=== PATIENT | female | born 1945 | race Caucasian/White ===

== ENCOUNTER 2016-10-21 14:52 | Emergency (ER) | payer MEDICARE ==
[2016-10-21] MEDS ORDERED: NS 0.9% 1000 ML* 1,000 ML IV ONE ×2 (15:38→16:30)
[2016-10-21] MEDS ORDERED: Diltiazem IV* 5 MG/ML 5 ML VIAL (for loading dose/IV Push) (25 MG) IV PUSH ONE (15:38)
[2016-10-21] MEDS ORDERED: Aspirin Low Dose CHEW TAB* 81 MG PO ONE (15:38)
[2016-10-21] MEDS ORDERED: Diltiazem DRIP* 100 MG/100 ML ADDV.BAG IVPB ONE (15:38)
[2016-10-21 16:03] LABS: Hematocrit 39 % (35-47); Mean Corpuscular HGB Conc 33 g/dl (31-36); Mean Corpuscular Hemoglobin 29 pg (27-31); Mean Corpuscular Volume 89 fL (80-97); Mean Platelet Volume 8 um3 (7.4-10.4); Red Blood Count 4.45 10^6/ul (4.0-5.4); Red Cell Distribution Width 15 % (10.5-15); White Blood Count 6.9 10^3/ul (3.5-10.8)
--- NOTE | 2016-10-21 16:13 | RAD ---
INDICATION: Pneumonia, CHF. COMPARISON: Comparison is made with a prior chest x-ray study from May 22, 2015. TECHNIQUE: A portable view of the chest was obtained. FINDINGS: The heart appears mildly enlarged and unchanged from the prior exam. There is a small infiltrate at the left lung base. The right lung appears clear. IMPRESSION: SMALL LEFT BASILAR INFILTRATE.
[2016-10-21 16:18] LABS: Urine Bilirubin Negative (Negative); Urine Glucose Negative (Negative); Urine Nitrite Negative (Negative)
[2016-10-21 16:19] LABS: Albumin 3.9 g/dL (3.2-5.2); BUN/Creatinine Ratio 21.4 (8-20); Calcium 9.6 mg/dL (8.6-10.3); EGFR African American 67.9 (>60); EGFR Non-African American 52.8 (>60); Globulin 3.7 g/dL (2-4); Magnesium 1.7 mg/dL (1.9-2.7); Potassium 3.7 mmol/L (3.5-5.0); Total Bilirubin 0.5 mg/dL (0.2-1.0); Total Protein 7.6 g/dL (6.4-8.9)
[2016-10-21 16:21] LABS: Troponin I 0.02 ng/mL (<0.04)
[2016-10-21 17:07] LABS: TSH (Thyroid Stimulating Horm) 1.15 mcIU/mL (0.34-5.60)
[2016-10-21] MEDS ORDERED: Potassium Chlor TAB* 20 MEQ TAB.ER PO ONE (18:37)
[2016-10-21] MEDS ORDERED: Rivaroxaban TAB(*) 10 MG PO ONE (18:39)
[2016-10-21] MEDS ORDERED: Rivaroxaban TAB(*) 20 MG TAB PO ONE ×2 (19:00→19:01)
[2016-10-21 19:05] VITALS: BP 106/67
--- NOTE | 2016-10-21 19:47 | ED ---
Paco Medina Billy, scribed for James Gonzalez MD on 10/21/16 at 1531 . Palpitations / Dysrhythmia - HPI Summary HPI Summary: Patient is a 71 year-old female coming to [facility] presenting with palpitations starting today at 1300. She states that her heart feels as if it is beating incredibly rapidly. She reports dizziness without any syncope. Denies any SOB. Patient has bilateral edema. She states that her current symptoms are very similar to a previous episode of a-fib. Denies any significant caffeine intake. - History of Current Complaint Chief Complaint: EDDysrhythmPalp Time Seen by Provider: 10/21/16 15:22 Hx Obtained From: Patient Onset/Duration: Gradual Onset, Lasting Hours, Still Present Timing: Constant Severity Initially: Moderate Severity Currently: Moderate Character: Fast Aggravating: Nothing Alleviating: Nothing Associated Signs & Symptoms: Dizzy - Allergy/Home Medications Allergies/Adverse Reactions: Allergies Allergy/AdvReac Type Severity Reaction Status Date / Time Iodinated Contrast Media Allergy Mild Rash Verified 03/28/15 13:47 Amoxicillin [From Augmentin] Allergy Unknown Unknown Verified 03/28/15 13:47 Reaction Details Clavulanic Acid Allergy Unknown Unknown Verified 03/28/15 13:47 [From Augmentin] Reaction Details peppers Allergy Intermediate lips swell Uncoded 03/28/15 13:47 environmental Allergy Mild Sneezing Uncoded 03/28/15 13:47 tony seltzer AdvReac Mild nausea/vomi Uncoded 03/28/15 13:47 ting Home Medications: Home Medications Diclofenac 1% GEL (NF) [Voltaren 1% GEL (NF)] 1 applic TOPICAL BID PRN 10/21/16 [History Confirmed 10/21/16] Nystatin CREAM* [Nystatin Cream*] 1 applic TOPICAL BID PRN 10/21/16 [History Confirmed 10/21/16] PMH/Surg Hx/FS Hx/Imm Hx Endocrine/Hematology History: Reports: Hx Anticoagulant Therapy Cardiovascular History: Reports: Hx Atrial Fibrillation, Hx Deep Vein Thrombosis Denies: Hx Congestive Heart Failure, Hx Myocardial Infarction Respiratory History: Reports: Hx Pulmonary Embolism - 02/2014, Hx Seasonal Allergies - unsure; chronically stuffy head, Hx Sleep Apnea - O2 2L NIGHT, Other Respiratory Problems/Disorders - PNX3 LAST 5YRS.AGO GI History: Reports: Hx Gastroesophageal Reflux Disease, Hx Hiatal Hernia History: Reports: Other Problems/Disorders - frequent UTIs Musculoskeletal History: Reports: Hx Arthritis - knees, Other Musculoskeletal History - Vargas's esophagus Sensory History: Reports: Hx Cataracts - cataracts removed 2011, Hx Contacts or Glasses Denies: Hx Hearing Aid Opthamlomology History: Reports: Hx Cataracts - cataracts removed 2011, Hx Contacts or Glasses Psychiatric History: Reports: Hx Anxiety, Hx Depression - hx of therapy - Cancer History Hx Chemotherapy: No Hx Radiation Therapy: No - Surgical History Surgery Procedure, Year, and Place: cholecystectomy 2011 [facility] [place]. tonsillectomy 1961. D+C 1966 Hx Anesthesia Reactions: No Infectious Disease History: No Infectious Disease History: Denies: Traveled Outside the [place] in Last 30 Days - Family History Known Family History: Positive: Renal Disease - mother, Other Family History: Breast CA - Social History Alcohol Use: None Hx Substance Use: No Substance Use Type: Reports: None Hx Tobacco Use: No Smoking Status (MU): Never Smoked Tobacco Review of Systems Positive: Palpitations Negative: Shortness Of Breath Neurological: Other - dizziness All Other Systems Reviewed And Are Negative: Yes Physical Exam - Summary Physical Exam Summary: The patient is well-nourished in no acute distress and in no acute pain. The skin is warm and dry and skin color reflects adequate perfusion. HEENT: The head is normocephalic and atraumatic. The pupils are equal and reactive. The conjunctivae are clear and without drainage. Nares are patent and without drainage. Mouth reveals dry mucous membranes and the throat is without erythema and exudate. The external ears are intact. The ear canals are patent and without drainage. The tympanic membranes are intact. Neck is supple with full range of motion and non-tender. There are no carotid bruits. There is no neck vein distension. Respiratory: Chest is non-tender. Lungs are clear to auscultation and breath sounds are symmetrical and equal. Cardiovascular: Heart is tachycardic and irregular. There is no murmur or rub auscultated. Abdomen: The abdomen is soft and non-tender. There are normal bowel sounds heard in all four quadrants and there is no organomegaly palpated. Musculoskeletal: There is no back pain noted. Extremities are non-tender with full range of motion. There is good capillary refill. There is bilateral pitting edema. Neurological: Patient is alert and oriented to person, place and time. The patient has symmetrical motor strength in all four extremities. Cranial nerves are grossly intact. Deep tendon reflexes are symmetrical and equal in all four extremities. Psychiatric: The patient has an appropriate affect and does not exhibit any anxiety or depression. Triage Information Reviewed: Yes Vital Signs On Initial Exam: Initial Vitals Temp Pulse Resp BP Pulse Ox 98.6 F 147 19 120/68 97 10/21/16 14:54 10/21/16 14:54 10/21/16 14:54 10/21/16 14:54 10/21/16 14:54 Vital Signs Reviewed: Yes Diagnostics - Vital Signs Vital Signs Temp Pulse Resp BP Pulse Ox 10/21/16 14:54 98.6 F 147 19 120/68 97 - Laboratory Lab Results: Lab Results 10/21/16 10/21/16 10/21/16 Range/Units 15:20 15:54 15:54 WBC 6.9 (3.5-10.8) 10^3/ul RBC 4.45 (4.0-5.4) 10^6/ul Hgb 13.0 (12.0-16.0) g/dl Hct 39 (35-47) % MCV 89 (80-97) fL MCH 29 (27-31) pg MCHC 33 (31-36) g/dl RDW 15 (10.5-15) % Plt Count 244 (150-450) 10^3/ul MPV 8 (7.4-10.4) um3 Neut % (Auto) 64.7 (38-83) % Lymph % (Auto) 20.6 L (25-47) % Vigo % (Auto) 9.7 H (1-9) % Eos % (Auto) 4.0 (0-6) % Baso % (Auto) 1.0 (0-2) % Absolute Neuts (auto) 4.5 (1.5-7.7) 10^3/ul Absolute Lymphs (auto) 1.4 (1.0-4.8) 10^3/ul Absolute Monos (auto) 0.7 (0-0.8) 10^3/ul Absolute Eos (auto) 0.3 (0-0.6) 10^3/ul Absolute Basos (auto) 0.1 (0-0.2) 10^3/ul Absolute Nucleated RBC 0.01 10^3/ul Nucleated RBC % 0.2 INR (Anticoag Therapy) (0.89-1.11) Sodium 139 (133-145) mmol/L Potassium 3.7 (3.5-5.0) mmol/L Chloride 105 (101-111) mmol/L Carbon Dioxide 28 (22-32) mmol/L Anion Gap 6 (2-11) mmol/L BUN 22 (6-24) mg/dL Creatinine 1.03 H (0.51-0.95) mg/dL Est GFR ( Amer) 67.9 (>60) Est GFR (Non-Af Amer) 52.8 (>60) BUN/Creatinine Ratio 21.4 H (8-20) Glucose 92 (70-100) mg/dL Lactic Acid (0.5-2.0) mmol/L Calcium 9.6 (8.6-10.3) mg/dL Magnesium 1.7 L (1.9-2.7) mg/dL Total Bilirubin 0.50 (0.2-1.0) mg/dL AST 20 (13-39) U/L ALT 13 (7-52) U/L Alkaline Phosphatase 64 (34-104) U/L Total Creatine Kinase 50 (10-223) U/L Troponin I 0.02 (<0.04) ng/mL B-Natriuretic Peptide ( - 100) pg/mL Total Protein 7.6 (6.4-8.9) g/dL Albumin 3.9 (3.2-5.2) g/dL Globulin 3.7 (2-4) g/dL Albumin/Globulin Ratio 1.1 (1-3) TSH 1.15 (0.34-5.60) mcIU/mL Urine Color Yellow Urine Appearance Turbid Urine pH 5.0 (5-9) Ur Specific Hubbard 1.031 H (1.010-1.030) Urine Protein Negative (Negative) Urine Ketones Negative (Negative) Urine Blood Negative (Negative) Urine Nitrate Negative (Negative) Urine Bilirubin Negative (Negative) Urine Urobilinogen Negative (Negative) Ur Leukocyte Esterase Negative (Negative) Urine Glucose Negative (Negative) 10/21/16 10/21/16 10/21/16 Range/Units 15:54 15:54 15:54 WBC (3.5-10.8) 10^3/ul RBC (4.0-5.4) 10^6/ul Hgb (12.0-16.0) g/dl Hct (35-47) % MCV (80-97) fL MCH (27-31) pg MCHC (31-36) g/dl RDW (10.5-15) % Plt Count (150-450) 10^3/ul MPV (7.4-10.4) um3 Neut % (Auto) (38-83) % Lymph % (Auto) (25-47) % Vigo % (Auto) (1-9) % Eos % (Auto) (0-6) % Baso % (Auto) (0-2) % Absolute Neuts (auto) (1.5-7.7) 10^3/ul Absolute Lymphs (auto) (1.0-4.8) 10^3/ul Absolute Monos (auto) (0-0.8) 10^3/ul Absolute Eos (auto) (0-0.6) 10^3/ul Absolute Basos (auto) (0-0.2) 10^3/ul Absolute Nucleated RBC 10^3/ul Nucleated RBC % INR (Anticoag Therapy) 1.10 (0.89-1.11) Sodium (133-145) mmol/L Potassium (3.5-5.0) mmol/L Chloride (101-111) mmol/L Carbon Dioxide (22-32) mmol/L Anion Gap (2-11) mmol/L BUN (6-24) mg/dL Creatinine (0.51-0.95) mg/dL Est GFR ( Amer) (>60) Est GFR (Non-Af Amer) (>60) BUN/Creatinine Ratio (8-20) Glucose (70-100) mg/dL Lactic Acid 1.6 (0.5-2.0) mmol/L Calcium (8.6-10.3) mg/dL Magnesium (1.9-2.7) mg/dL Total Bilirubin (0.2-1.0) mg/dL AST (13-39) U/L ALT (7-52) U/L Alkaline Phosphatase (34-104) U/L Total Creatine Kinase (10-223) U/L Troponin I (<0.04) ng/mL B-Natriuretic Peptide 161 H ( - 100) pg/mL Total Protein (6.4-8.9) g/dL Albumin (3.2-5.2) g/dL Globulin (2-4) g/dL Albumin/Globulin Ratio (1-3) TSH (0.34-5.60) mcIU/mL Urine Color Urine Appearance Urine pH (5-9) Ur Specific Hubbard (1.010-1.030) Urine Protein (Negative) Urine Ketones (Negative) Urine Blood (Negative) Urine Nitrate (Negative) Urine Bilirubin (Negative) Urine Urobilinogen (Negative) Ur Leukocyte Esterase (Negative) Urine Glucose (Negative) Result Diagrams: 10/21/16 15:54 10/21/16 15:54 Lab Statement: Any lab studies that have been ordered have been reviewed, and results considered in the medical decision making process. - Radiology CXR Radiology Interpretation Completed By: Radiologist - Small left basilar infiltrate. - EKG 1602 EKG Interpretation: afib 136 with RVR, poor R-wave progression, normal axis, no ST elevation 1814 EKG Interpretation: NSR 69 bpm, no ST elevation Re-Evaluation - Re-Evaluation First Eval Re-Evaluation Time: 16:49 Change: Unchanged Comment: Remains in afib. Second Eval Re-Evaluation Time: 18:11 Change: Improved Comment: Has converted to sinus rhythm. Course/Dx - Course Assessment/Plan: 71 y/o female coming to [facility] for evaluation of palpitations. CXR shows small left basilar infiltrate. First EKG at 1602 shows afib 136 with RVR, poor R-wave progression, normal axis, no ST elevation. In the ED course, patient was given diltiazem and ASA. Case discussed with Dr. Wesley, who accepted the patient for admission. However, upon re-evaluation, patient appeared to be in sinus rhythm. Repeat EKG at [address] elevation. Case was discussed with Dr. Weiner, who recommended that the patient be discharged and to follow up with Dr. Turner. - Diagnoses Differential Diagnosis/HQI/PQRI: Positive: Other - atrial fibrillation with rvr , mi, chf Provider Diagnoses: afib with conversion to NSR - Physician Notifications Discussed Care Of Patient With: Dr. Reyes (hospitalist) @ 1603: discussed patient presentation. Dr. Wesley (hospitalist) @ 1800: accepts admission. Dr. Weiner (cardiology) @ 1831: recommends discharge. Recommends one-time dose of potassium in the ED and d/c with Xarelto 20mg/day and to follow up with Dr. Turner within a week. - Critical Care Time Critical Care Time: 30-74 min - 30 minutes Discharge - Discharge Plan Condition: Stable Disposition: HOME Prescriptions: Rivaroxaban TAB(*) [Xarelto 20 mg] 20 mg PO DAILY #30 tab Patient Education Materials: Atrial Fibrillation (ED), Cardioversion (ED) Referrals: Wes Killian MD [Primary Care Provider] - Joey Turner MD [Medical Doctor] - 1 Week Additional Instructions: TAKE POTASSIUM DIRECTED. CONTINUE TO TAKE METOPROLOL PRESCRIBED. TAKE XARELTO 20MG DAILY. The documentation as recorded by the Paco perdue Billy accurately reflects the service I personally performed and the decisions made by , James Gonzalez MD.
== END 2016-10-21 19:11 | disposition home or self-care (01) ==
LOC: ED 14:52
DX: I48.91 Unspecified atrial fibrillation (principal); R00.2 Palpitations; R91.8 Other nonspecific abnormal finding of lung field
CPT/HCPCS: 36415; 71010; 80053; 81003; 82550; 83605; 83735; 83880; 84443; 84484; 85025; 85610; 93005; 96374; 96375; 99283; A9270-GY

== ENCOUNTER 2017-01-20 15:37 | Emergency (ER) | payer MEDICARE ==
[2017-01-20 18:58] LABS: Hematocrit 37 % (35-47); Hemoglobin 12.1 g/dl (12.0-16.0); Mean Corpuscular HGB Conc 32 g/dl (31-36); Mean Corpuscular Hemoglobin 29 pg (27-31); Mean Corpuscular Volume 88 fL (80-97); Mean Platelet Volume 8 um3 (7.4-10.4); Red Blood Count 4.24 10^6/ul (4.0-5.4); Red Cell Distribution Width 14 % (10.5-15); White Blood Count 6.6 10^3/ul (3.5-10.8)
[2017-01-20 19:12] LABS: Albumin 3.7 g/dL (3.2-5.2); BUN/Creatinine Ratio 15.3 (8-20); Calcium 9.6 mg/dL (8.6-10.3); EGFR African American 71.9 (>60); EGFR Non-African American 55.9 (>60); Globulin 3.4 g/dL (2-4); Total Bilirubin 0.4 mg/dL (0.2-1.0); Total Protein 7.1 g/dL (6.4-8.9)
[2017-01-20] MEDS ORDERED: Cephalexin CAP* 500 MG PO ONE ×2 (21:39→21:40)
[2017-01-20 22:04] VITALS: BP 110/68
--- NOTE | 2017-01-20 23:05 | CONS ---
CC: Dr. Killian * MEDICAL CONSULTATION: DATE OF CONSULT: PRIMARY CARE PROVIDER: Dr. Wes Killian. REQUESTING PROVIDER: Dr. Iasc Navarrete. CONSULTING PROVIDER: RILEY Michelle SUPERVISING PHYSICIAN: Dr. Dereje Kyle. CHIEF COMPLAINT: Lower extremity edema and erythema. HISTORY OF PRESENT ILLNESS: This is a 71-year-old female with morbid obesity, chronic lower extremity edema, atrial fibrillation, hypertension, and hyperlipidemia who was referred to the emergency department by her primary care provider for evaluation of lower extremity edema and erythema. The patient states that she started to notice some drainage from her right leg a couple of days ago and has had intermittent chills. She was referred to the emergency department by her primary care provider after being seen earlier today. The patient states that she does have a lymphedema compression machine that she has been instructed on how to use, but unfortunately cannot operate without an additional person present and she lives alone. She also tends to sleep in her chair which is not a recliner and her legs spend the majority of the time in a dependent position. It sounds like her primary care provider has discussed leg elevation with her on multiple occasions, but for various reasons she has been unable to comply. The patient otherwise denies shortness of breath, abdominal pain, chest pain, nausea, or vomiting. PAST MEDICAL HISTORY: 1. Atrial fibrillation. 2. Morbid obesity with a BMI of 52. 3. Chronic lower extremity edema. 4. Hypertension. 5. Hyperlipidemia. HOME MEDICATIONS: 1. Tri-Cor 145 mg p.o. daily. 2. Lasix 60 mg p.o. daily. 3. Metoprolol succinate 25 mg p.o. daily. 4. Multivitamin 1 tablet p.o. daily. 5. Nystatin cream apply topically twice daily as needed for rash. 6. Fish oil 1000 mg p.o. daily. 7. Prilosec 40 mg p.o. daily. 8. Xarelto 20 mg p.o. daily. SOCIAL HISTORY: The patient lives alone. PHYSICAL EXAM: Initial Vitals: Temperature 98.3 degrees Fahrenheit, pulse 79 beats per minute, respiratory rate 20 per minute, oxygen saturation 94% on room air, blood pressure 106/54 mmHg. General: This is a 71-year-old morbidly obese female, who is slightly anxious, but in no acute distress, lying in a hospital stretcher. HEENT: Head is normo-cephalic, atraumatic. Mucous membranes are pink and moist. Cardiovascular: Heart has a regular rate and rhythm without murmurs, rubs or gallops. Respiratory: Lungs are clear to auscultation without wheezes, crackles or rhonchi, although exam is slightly limited by her body habitus. Abdomen: Abdomen is soft and nontender to palpation. Extremities: The patient has 2+ nonpitting lower extremity edema bilaterally. Skin: The patient has very mild erythema over the right lateral aspect of her leg. There is an open weeping area in the mid lateral right lower leg as well without purulent drainage, appears to be serosanguineous and no possible abscess. Psych: The patient is alert and appropriately oriented. DIAGNOSTIC STUDIES/LAB DATA: CBC shows a white blood cell count of 6600, hemoglobin of 12.1, platelet count of 228,000. Comprehensive metabolic panel is unremarkable with a sodium of 140, potassium 4.0, BUN 15, creatinine 0.98, transaminases and total bilirubin within normal limits. IMAGING: EKG demonstrates sinus rhythm without acute ischemic changes. ASSESSMENT AND PLAN: This is a 71-year-old female with atrial fibrillation, morbid obesity, hypertension, hyperlipidemia who was referred to the emergency department for evaluation of lower extremity erythema. Hospitalist group has been asked to evaluate patient for appropriateness of her admission. The patient is most appropriate for outpatient therapy and does not require inpatient admission at this time. 1. Lower extremity edema with possible right lower extremity cellulitis. The patient has very mild right lateral erythema, which could represent a cellulitis versus venous stasis changes. She is afebrile without white blood cell count and has not trialed oral antibiotics. Managing her edema seems to be most appropriate avenues for treatment as well as course of oral Keflex. It sounds like patient's time in a dependent position as well as her body habitus are her barriers to improvement in her lower extremity edema. Echocardiogram from 2013 appears to be within normal limits. Due to her inability to elevate her legs and comply with use of a pneumatic compression machine perhaps, as long as there is no contraindication such as severe peripheral vascular disease , use of Unna boots or rather longer term compression devices that could be applied at the wound care center may be a better strategy. 2. Atrial fibrillation. The patient is in sinus rhythm at the time of evaluation, recommend continuing outpatient beta-albina and Xarelto. 3. Hypertension. 4. Hyperlipidemia. 5. Disposition. Recommend the patient be discharged to home with oral Keflex and close followup with her primary care provider. Stressed the importance of leg elevation with her and perhaps she can explore other avenues with her primary care provider to help treat her edema. RILEY MICHELLE [id number]/[facility] #: [id number] KIMBERLEE
--- NOTE | 2017-01-21 12:52 | ED ---
clive Medina Timothy, scribed for Isac Navarrete MD on 01/20/17 at 1831 . Lower Extremity - HPI Summary HPI Summary: Rosa Márquez is a 71 yo female presenting to [facility] with sores behind her right leg causing 10/10 pain that are purulent, swollen, weeping. She was sent to [facility] by her PCP for admission. Her MHx includes DVT, PE, GERD, hiatal hernia , arthritis, titus's esophagus, depression, anxiety. - History of Current Complaint Chief Complaint: EDGeneral Stated Complaint: SORE ON BOTH LEGS Time Seen by Provider: 01/20/17 18:20 Hx Obtained From: Patient Onset/Duration: Still Present Severity Initially: Moderate Severity Currently: Moderate Pain Intensity: 10 Pain Scale Used: 0-10 Numeric Timing: Constant Associated Signs And Symptoms: Positive: Swelling, Other - purulent, weeping - Allergies/Home Medications Allergies/Adverse Reactions: Allergies Allergy/AdvReac Type Severity Reaction Status Date / Time Iodinated Contrast Media Allergy Mild Rash Verified 03/28/15 13:47 Amoxicillin [From Augmentin] Allergy Unknown Unknown Verified 03/28/15 13:47 Reaction Details Clavulanic Acid Allergy Unknown Unknown Verified 03/28/15 13:47 [From Augmentin] Reaction Details peppers Allergy Intermediate lips swell Uncoded 03/28/15 13:47 environmental Allergy Mild Sneezing Uncoded 03/28/15 13:47 tony seltzer AdvReac Mild nausea/vomi Uncoded 03/28/15 13:47 ting Home Medications: Home Medications Multivitamins/Minerals TAB* [Theragran/minerals TAB*] 1 tab PO DAILY 01/20/17 [ History Confirmed 01/20/17] [place]-3 Fatty Acids (Nf) [Fish Oil (NF)] 1,000 mg PO DAILY 01/20/17 [History Confirmed 01/20/17] PMH/Surg Hx/FS Hx/Imm Hx Endocrine/Hematology History: Reports: Hx Anticoagulant Therapy Cardiovascular History: Reports: Hx Atrial Fibrillation, Hx Deep Vein Thrombosis Denies: Hx Congestive Heart Failure, Hx Myocardial Infarction Respiratory History: Reports: Hx Pulmonary Embolism - 02/2014, Hx Seasonal Allergies - unsure; chronically stuffy head, Hx Sleep Apnea - O2 2L NIGHT, Other Respiratory Problems/Disorders - PNX3 LAST 5YRS.AGO GI History: Reports: Hx Gastroesophageal Reflux Disease, Hx Hiatal Hernia History: Reports: Other Problems/Disorders - frequent UTIs Musculoskeletal History: Reports: Hx Arthritis - knees, Other Musculoskeletal History - Titus's esophagus Sensory History: Reports: Hx Cataracts - cataracts removed 2011, Hx Contacts or Glasses Denies: Hx Hearing Aid Opthamlomology History: Reports: Hx Cataracts - cataracts removed 2011, Hx Contacts or Glasses Psychiatric History: Reports: Hx Anxiety, Hx Depression - hx of therapy - Cancer History Hx Chemotherapy: No Hx Radiation Therapy: No - Surgical History Surgery Procedure, Year, and Place: cholecystectomy 2011 [facility] [place]. tonsillectomy 1961. D+C 1966 Hx Anesthesia Reactions: No Infectious Disease History: No Infectious Disease History: Denies: Traveled Outside the [place] in Last 30 Days - Family History Known Family History: Positive: Renal Disease - mother, Other - breast CA Family History: Breast CA - Social History Alcohol Use: None Hx Substance Use: No Substance Use Type: Reports: None Hx Tobacco Use: No Smoking Status (MU): Never Smoked Tobacco Review of Systems Constitutional: Negative Eyes: Negative ENT: Negative Cardiovascular: Negative Respiratory: Negative Gastrointestinal: Negative Genitourinary: Negative Musculoskeletal: Negative Positive: Other - purulent weeping red sores on back of right leg Neurological: Negative Psychological: Normal All Other Systems Reviewed And Are Negative: Yes Physical Exam Triage Information Reviewed: Yes Vital Signs On Initial Exam: Initial Vitals Temp 98.3 F 01/20/17 16:03 Vital Signs Reviewed: Yes Appearance: Positive: No Pain Distress, Ill-Appearing, Obese Skin: Positive: Warm, Skin Color Reflects Adequate Perfusion, Dry, Erythema @ - right and left lower extremities, right worse than left. On the right there is skin broken with weeping areas. Head/Face: Positive: Normal Head/Face Inspection Eyes: Positive: Normal ENT: Positive: Normal ENT inspection Neck: Positive: Supple, Nontender Respiratory/Lung Sounds: Positive: Clear to Auscultation, Breath Sounds Present Cardiovascular: Positive: RRR Abdomen Description: Positive: Nontender, Soft Bowel Sounds: Positive: Present Musculoskeletal: Positive: Normal Neurological: Positive: Normal Psychiatric: Positive: Normal, Affect/Mood Appropriate Diagnostics - Vital Signs Vital Signs Temp Pulse Resp BP Pulse Ox 01/20/17 17:30 97.6 F 71 20 114/46 96 01/20/17 16:05 97.8 F 79 20 106/54 94 01/20/17 16:03 98.3 F - Laboratory Lab Results: Lab Results 01/20/17 01/20/17 01/20/17 Range/Units 18:50 18:50 18:50 WBC 6.6 (3.5-10.8) 10^3/ul RBC 4.24 (4.0-5.4) 10^6/ul Hgb 12.1 (12.0-16.0) g/dl Hct 37 (35-47) % MCV 88 (80-97) fL MCH 29 (27-31) pg MCHC 32 (31-36) g/dl RDW 14 (10.5-15) % Plt Count 228 (150-450) 10^3/ul MPV 8 (7.4-10.4) um3 Neut % (Auto) 63.6 (38-83) % Lymph % (Auto) 20.5 L (25-47) % [place] % (Auto) 9.1 H (1-9) % Eos % (Auto) 6.1 H (0-6) % Baso % (Auto) 0.7 (0-2) % Absolute Neuts (auto) 4.2 (1.5-7.7) 10^3/ul Absolute Lymphs (auto) 1.4 (1.0-4.8) 10^3/ul Absolute Monos (auto) 0.6 (0-0.8) 10^3/ul Absolute Eos (auto) 0.4 (0-0.6) 10^3/ul Absolute Basos (auto) 0 (0-0.2) 10^3/ul Absolute Nucleated RBC 0 10^3/ul Nucleated RBC % 0 INR (Anticoag Therapy) 1.02 (0.89-1.11) Sodium 140 (133-145) mmol/L Potassium 4.0 (3.5-5.0) mmol/L Chloride 104 (101-111) mmol/L Carbon Dioxide 30 (22-32) mmol/L Anion Gap 6 (2-11) mmol/L BUN 15 (6-24) mg/dL Creatinine 0.98 H (0.51-0.95) mg/dL Est GFR ( Amer) 71.9 (>60) Est GFR (Non-Af Amer) 55.9 (>60) BUN/Creatinine Ratio 15.3 (8-20) Glucose 103 H (70-100) mg/dL Lactic Acid (0.5-2.0) mmol/L Calcium 9.6 (8.6-10.3) mg/dL Total Bilirubin 0.40 (0.2-1.0) mg/dL AST 15 (13-39) U/L ALT 7 (7-52) U/L Alkaline Phosphatase 68 (34-104) U/L Total Protein 7.1 (6.4-8.9) g/dL Albumin 3.7 (3.2-5.2) g/dL Globulin 3.4 (2-4) g/dL Albumin/Globulin Ratio 1.1 (1-3) 01/20/17 Range/Units 18:50 WBC (3.5-10.8) 10^3/ul RBC (4.0-5.4) 10^6/ul Hgb (12.0-16.0) g/dl Hct (35-47) % MCV (80-97) fL MCH (27-31) pg MCHC (31-36) g/dl RDW (10.5-15) % Plt Count (150-450) 10^3/ul MPV (7.4-10.4) um3 Neut % (Auto) (38-83) % Lymph % (Auto) (25-47) % [place] % (Auto) (1-9) % Eos % (Auto) (0-6) % Baso % (Auto) (0-2) % Absolute Neuts (auto) (1.5-7.7) 10^3/ul Absolute Lymphs (auto) (1.0-4.8) 10^3/ul Absolute Monos (auto) (0-0.8) 10^3/ul Absolute Eos (auto) (0-0.6) 10^3/ul Absolute Basos (auto) (0-0.2) 10^3/ul Absolute Nucleated RBC 10^3/ul Nucleated RBC % INR (Anticoag Therapy) (0.89-1.11) Sodium (133-145) mmol/L Potassium (3.5-5.0) mmol/L Chloride (101-111) mmol/L Carbon Dioxide (22-32) mmol/L Anion Gap (2-11) mmol/L BUN (6-24) mg/dL Creatinine (0.51-0.95) mg/dL Est GFR ( Amer) (>60) Est GFR (Non-Af Amer) (>60) BUN/Creatinine Ratio (8-20) Glucose (70-100) mg/dL Lactic Acid 1.1 (0.5-2.0) mmol/L Calcium (8.6-10.3) mg/dL Total Bilirubin (0.2-1.0) mg/dL AST (13-39) U/L ALT (7-52) U/L Alkaline Phosphatase (34-104) U/L Total Protein (6.4-8.9) g/dL Albumin (3.2-5.2) g/dL Globulin (2-4) g/dL Albumin/Globulin Ratio (1-3) Result Diagrams: 01/20/17 18:50 01/20/17 18:50 Lab Statement: Any lab studies that have been ordered have been reviewed, and results considered in the medical decision making process. - EKG 1613 Cardiac Rate: NL - 75 BPM EKG Interpretation: NSR @ 75 BPM, no ST elevation, normal EKG Lower Extremity Course/Dx - Course Assessment/Plan: Rosa Márquez is a 71 yo female presenting to [facility] with red, purulent, weeping sores on the back of her right leg sent here by her PCP. Her temp, labs and vitals were all OK. Her legs look to me as though she is developing an early cellulitis although the changes may all be related to venous stasis. I asked the hospitalists to consult as she has the expectation of being admitted and I don't think that is necessary. - Diagnoses Provider Diagnoses: Cellulitis Discharge - Discharge Plan Condition: Stable Disposition: HOME Prescriptions: Cephalexin [Keflex 750 MG] 750 mg PO TID #30 cap Patient Education Materials: Cellulitis (ED) Referrals: Wes Killian MD [Primary Care Provider] - 2 Days Additional Instructions: Please follow up with your primary care physician regarding your visit to the emergency department today. Return to the emergency department with any new or recurring symptoms. The documentation as recorded by the clive perdue Timothy accurately reflects the service I personally performed and the decisions made by me, Isac Navarrete MD.
== END 2017-01-20 22:05 | disposition home or self-care (01) ==
LOC: ED 15:37
DX: L03.90 Cellulitis, unspecified (principal); R60.9 Edema, unspecified
CPT/HCPCS: 36415; 80053; 83605; 85025; 85610; 87040; 93005; 99283; A9270-GY

== ENCOUNTER 2017-04-01 18:56 | Emergency (ER) | payer MEDICARE ==
[2017-04-01 22:06] LABS: Hematocrit 36 % (35-47); Hemoglobin 12.2 g/dl (12.0-16.0); Mean Corpuscular HGB Conc 34 g/dl (31-36); Mean Corpuscular Hemoglobin 29 pg (27-31); Mean Corpuscular Volume 87 fL (80-97); Mean Platelet Volume 8 um3 (7.4-10.4); Red Blood Count 4.17 10^6/ul (4.0-5.4); Red Cell Distribution Width 15 % (10.5-15); White Blood Count 7.2 10^3/ul (3.5-10.8)
[2017-04-01 22:21] LABS: ALT 9 U/L (7-52); AST 16 U/L (13-39); Albumin 3.6 g/dL (3.2-5.2); Alkaline Phosphatase 62 U/L (34-104); Blood Urea Nitrogen 16 mg/dL (6-24); CO2 Carbon Dioxide 30 mmol/L (22-32); Calcium 9.7 mg/dL (8.6-10.3); Chloride 107 mmol/L (101-111); EGFR African American 75.5 (>60); EGFR Non-African American 58.7 (>60); Globulin 3.7 g/dL (2-4); Glucose 106 mg/dL (70-100); Potassium 4.1 mmol/L (3.5-5.0); Sodium 137 mmol/L (133-145); Total Protein 7.3 g/dL (6.4-8.9)
--- NOTE | 2017-04-01 22:37 | ED ---
Dagoberto Medina Rebecca, scribed for David Lundy MD on 04/01/17 at 2128 . Skin Complaint - HPI Summary HPI Summary: Pt is a 71 y/o F referred from her PCP who presents to ED c/o bilateral LE swelling and "scabs." Pt reports that her sx began 1 year ago on the RLE and are now on both legs. Associated pain is currently severe, ranked 9/10. Sx aggravated and alleviated by nothing. She has been seen for these sx by the [facility] twice with the last time being in January. Pt reports she is supposed to use pressure boots but she is unable to lift her legs into them to use at home. - History of Current Complaint Chief Complaint: EDExtremityLower Time Seen by Provider: 04/01/17 21:18 Stated Complaint: SORES ON BOTH LEGS Hx Obtained From: Patient Onset/Duration: Started Weeks Ago - 1 year ago, Still Present Current Severity: Severe Pain Intensity: 9 Pain Scale Used: 0-10 Numeric Skin Location: Leg - Bilateral LE Character: Swelling Aggravating Symptom(s): Nothing Alleviating Symptom(s): Nothing - Additional Pertinent History Primary Care Physician: [id number] - Allergy/Home Medications Allergies/Adverse Reactions: Allergies Allergy/AdvReac Type Severity Reaction Status Date / Time Iodinated Contrast Media Allergy Mild Rash Verified 04/01/17 19:01 Amoxicillin [From Augmentin] Allergy Unknown Unknown Verified 04/01/17 19:01 Reaction Details Clavulanic Acid Allergy Unknown Unknown Verified 04/01/17 19:01 [From Augmentin] Reaction Details peppers Allergy Intermediate lips swell Uncoded 04/01/17 19:01 environmental Allergy Mild Sneezing Uncoded 04/01/17 19:01 tony seltzer AdvReac Mild nausea/vomi Uncoded 04/01/17 19:01 ting PMH/Surg Hx/FS Hx/Imm Hx Endocrine/Hematology History: Reports: Hx Anticoagulant Therapy Cardiovascular History: Reports: Hx Atrial Fibrillation, Hx Deep Vein Thrombosis Denies: Hx Congestive Heart Failure, Hx Myocardial Infarction Respiratory History: Reports: Hx Pulmonary Embolism - 02/2014, Hx Seasonal Allergies - unsure; chronically stuffy head, Hx Sleep Apnea - O2 2L NIGHT, Other Respiratory Problems/Disorders - PNX3 LAST 5YRS.[place] GI History: Reports: Hx Gastroesophageal Reflux Disease, Hx Hiatal Hernia History: Reports: Other Problems/Disorders - frequent UTIs Musculoskeletal History: Reports: Hx Arthritis - knees, Other Musculoskeletal History - Vargas's esophagus Sensory History: Reports: Hx Cataracts - cataracts removed 2011, Hx Contacts or Glasses Denies: Hx Hearing Aid Opthamlomology History: Reports: Hx Cataracts - cataracts removed 2011, Hx Contacts or Glasses Psychiatric History: Reports: Hx Anxiety, Hx Depression - hx of therapy - Cancer History Hx Chemotherapy: No Hx Radiation Therapy: No - Surgical History Surgery Procedure, Year, and Place: cholecystectomy 2011 [facility] [place]. tonsillectomy 1961. D+C 1966 Hx Anesthesia Reactions: No Infectious Disease History: No Infectious Disease History: Denies: Traveled Outside the [place] in Last 30 Days - Family History Known Family History: Positive: Renal Disease - mother, Other Family History: Breast CA - Social History Alcohol Use: None Hx Substance Use: No Substance Use Type: Reports: None Hx Tobacco Use: No Smoking Status (MU): Never Smoked Tobacco Review of Systems Positive: Other - Bilateral LE swelling Positive: Other - Bilateral LE "scabs" All Other Systems Reviewed And Are Negative: Yes Physical Exam Triage Information Reviewed: Yes Vital Signs On Initial Exam: Initial Vitals Temp Pulse Resp BP Pulse Ox 99.6 F 94 16 125/56 99 04/01/17 18:59 04/01/17 18:59 04/01/17 18:59 04/01/17 18:59 04/01/17 18:59 Vital Signs Reviewed: Yes Appearance: Positive: Obese Skin: Positive: Warm, Other - stasis dermatitis bilat le Head/Face: Positive: Normal Head/Face Inspection Eyes: Positive: SOFIE ENT: Positive: Hearing grossly normal Neck: Positive: Supple Respiratory/Lung Sounds: Positive: Breath Sounds Present Cardiovascular: Positive: RRR Abdomen Description: Positive: Nontender, Soft Bowel Sounds: Positive: Present Musculoskeletal: Positive: Strength/ROM Intact, Edema Left - 4 + bilat with stasis dermatitis, Edema Right Psychiatric: Positive: Affect/Mood Appropriate Diagnostics - Vital Signs Vital Signs Temp Pulse Resp BP Pulse Ox 04/01/17 20:45 98.1 F 89 16 117/54 97 04/01/17 18:59 99.6 F 94 16 125/56 99 - Laboratory Result Diagrams: 04/01/17 21:50 04/01/17 21:50 Lab Statement: Any lab studies that have been ordered have been reviewed, and results considered in the medical decision making process. Course/Dx - Course Assessment/Plan: Pt is a 71 y/o F referred from her PCP who presents to ED c/o bilateral LE swelling and "scabs." Pt reports that her sx began 1 year ago on the RLE and are now on both legs. Associated pain is currently severe, ranked 9/ 10. Sx aggravated and alleviated by nothing. She has been seen for these sx by the [facility] twice with the last time being in January. Pt reports she is supposed to use pressure boots but she is unable to lift her legs into them to use at home. WBC of 7.2. Pt will be D/C to home with Dx of stasis dermatitis and chronic edema with a follow up with the wound clinic. She understands and agrees. Elevated BP noteed and advised to f/u. - Diagnoses Provider Diagnoses: Stasis dermatitis, Chronic edema Discharge - Discharge Plan Condition: Stable Disposition: HOME Patient Education Materials: Stasis Dermatitis (ED), Edema (ED) Referrals: [facility] [Outside] - 3 Days The documentation as recorded by the Dagoberto perdue Rebecca accurately reflects the service I personally performed and the decisions made by , David Lundy MD.
[2017-04-01 22:44] VITALS: BP 108/50
== END 2017-04-01 23:00 | disposition home or self-care (01) ==
LOC: ED 18:56
DX: I87.2 Venous insufficiency (chronic) (peripheral) (principal); R60.9 Edema, unspecified
CPT/HCPCS: 36415; 80053; 85025; 99282

== ENCOUNTER 2017-08-16 13:42 | Emergency (ER) | payer MEDICARE ==
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
[2017-08-16 17:04] LABS: ABS Basophils 0 10^3/ul (0-0.2); ABS Eosinophils 0.3 10^3/ul (0-0.6); ABS Lymphocytes 1.1 10^3/ul (1.0-4.8); ABS Monocytes 0.4 10^3/ul (0-0.8); ABS Neutrophils 3.6 10^3/ul (1.5-7.7); ABS Nucleated RBC 0 10^3/ul; Eosinophil % 5.5 % (0-6); Hematocrit 38 % (35-47); Hemoglobin 12.5 g/dl (12.0-16.0); Lymphocyte % 19.7 % (25-47); Mean Corpuscular HGB Conc 33 g/dl (31-36); Mean Corpuscular Hemoglobin 29 pg (27-31); Mean Corpuscular Volume 88 fL (80-97); Mean Platelet Volume 8 um3 (7.4-10.4); Nucleated Red Blood Cells % 0.1; Platelet Count 257 10^3/ul (150-450); Red Blood Count 4.35 10^6/ul (4.0-5.4); Red Cell Distribution Width 15 % (10.5-15); White Blood Count 5.5 10^3/ul (3.5-10.8)
[2017-08-16 17:15] LABS: EGFR Non-African American 67.8 (>60)
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
[2017-08-16 21:45] VITALS: BP 121/46
== END 2017-08-16 21:30 | disposition home or self-care (01) ==
LOC: ED 13:42
DX: R46.89 Other symptoms and signs involving appearance and behavior (principal); G47.30 Sleep apnea, unspecified; Z88.3 Allergy status to other anti-infective agents; Z88.8 Allergy status to other drugs, medicaments and biological substances
CPT/HCPCS: 36415; 80053; 80307; 80320; 80329; 84443; 85025; 99284; G0480

== ENCOUNTER 2018-07-30 20:31 | Emergency (ER) | payer MEDICARE, OTHER ==
--- NOTE | 2018-07-30 21:06 | ED ---
GI/ HPI - HPI Summary HPI Summary: A 72 y/o female brought in by ambulance presents to the ED c/o vaginal bleeding and some vaginal pain. Currently, the patient is in no pain, but she indicated that sometimes she is in some vaginal pain. As per triage, "Pt reports abnormal vaginal bleeding on and off for 5 days. Pt denies recent order entry visit". According to the patient, she has been bleeding vaginally intermittently for the past 4-5 days, but not very much. She stated that yesterday she had a bowel movement and she noticed that she was bleeding from the front and back. She stated that she was laying down all night watching TV and got up at 1800 - 1830 today which she saw nothing except a little pinkish area. When she got up out of bed and she made her way to the living room, the bleeding started coming down her leg. She noted that previously she had something like this, but not this severe. Before it was intermittent, but this time it is constant and it hurts slightly. Patient denies any urinary pain or burning with urination. Patient takes several medications. - History of Current Complaint Chief Complaint: EDVaginalBleeding Time Seen by Provider: 07/30/18 20:41 Stated Complaint: VAGINAL BLEEDING Hx Obtained From: Patient Onset/Duration: Started Hours Ago Timing: Constant, Lasting Hours Current Severity: None Pain Intensity: 0 Location of Pain: Other - VAGINAL Associated Signs and Symptoms: Positive: Negative Aggravating Factor(s): Nothing Alleviating Factor(s): Nothing - Additional Pertinent History Primary Care Physician: [id number] - Allergy/Home Medications Allergies/Adverse Reactions: Allergies Allergy/AdvReac Type Severity Reaction Status Date / Time Iodinated Contrast- Oral and Allergy Mild Rash Verified 10/13/17 16:40 IV Dye amoxicillin Allergy Unknown Verified 10/13/17 16:40 Reaction Details clavulanic acid Allergy Unknown Verified 10/13/17 16:40 [From Augmentin] Reaction Details peppers Allergy Intermediate lips swell Uncoded 08/16/17 14:40 environmental Allergy Mild Sneezing Uncoded 08/16/17 14:40 tony seltzer AdvReac Mild nausea/vomi Uncoded 08/16/17 14:40 ting PMH/Surg Hx/FS Hx/Imm Hx Endocrine/Hematology History: Reports: Hx Anticoagulant Therapy Cardiovascular History: Reports: Hx Atrial Fibrillation, Hx Deep Vein Thrombosis Denies: Hx Congestive Heart Failure, Hx Myocardial Infarction Respiratory History: Reports: Hx Pulmonary Embolism - 02/2014, Hx Seasonal Allergies - unsure; chronically stuffy head, Hx Sleep Apnea - O2 2L NIGHT, Other Respiratory Problems/Disorders - PNX3 LAST 5YRS.AGO GI History: Reports: Hx Gastroesophageal Reflux Disease, Hx Hiatal Hernia History: Reports: Other Problems/Disorders - frequent UTIs Musculoskeletal History: Reports: Hx Arthritis - knees, Other Musculoskeletal History - Vargas's esophagus Sensory History: Reports: Hx Cataracts - cataracts removed 2011, Hx Contacts or Glasses Denies: Hx Hearing Aid Opthamlomology History: Reports: Hx Cataracts - cataracts removed 2011, Hx Contacts or Glasses Psychiatric History: Reports: Hx Anxiety, Hx Depression - hx of therapy, Other Psychiatric Issues/Disorders - claustrophobia Denies: Hx Eating Disorder, Hx of Violent Episodes Against Others - Cancer History Hx Chemotherapy: No Hx Radiation Therapy: No - Surgical History Surgery Procedure, Year, and Place: cholecystectomy 2011 [facility] [place]. tonsillectomy 1961. D+C 1966 Hx Anesthesia Reactions: No Infectious Disease History: No Infectious Disease History: Denies: Traveled Outside the [place] in Last 30 Days - Family History Known Family History: Positive: Renal Disease - mother, Other Family History: Breast CA - Social History Alcohol Use: None Hx Substance Use: No Substance Use Type: Reports: None Hx Tobacco Use: No Smoking Status (MU): Never Smoked Tobacco Review of Systems Negative: Fever Positive: discharge - VAGINAL BLEEDING. Negative: burning, pain All Other Systems Reviewed And Are Negative: Yes Physical Exam - Summary Physical Exam Summary: VITAL SIGNS: Reviewed. GENERAL: Patient is a morbidly obese female who is lying comfortable in the stretcher. Patient is not in any acute respiratory distress. HEAD AND FACE: No signs of trauma. No ecchymosis, hematomas or skull depressions. No sinus tenderness. EYES: PERRLA, EOMI x 2, No injected conjunctiva, no nystagmus. EARS: Hearing grossly intact. Ear canals and tympanic membranes are within normal limits. MOUTH: Oropharynx within normal limits. NECK: Supple, trachea is midline, no adenopathy, no JVD, no carotid bruit, no c- spine tenderness, neck with full ROM. CHEST: Symmetric, no tenderness at palpation LUNGS: Clear to auscultation bilaterally. No wheezing or crackles. CVS: Regular rate and rhythm, S1 and S2 present, no murmurs or gallops appreciated. ABDOMEN: Soft, non-tender. No signs of distention. No rebound no guarding, and no masses palpated. Bowel sounds are normal. EXTREMITIES: FROM in all major joints, no cyanosis or clubbing. Bilateral lower extremity edema. NEURO: Alert and oriented x 3. No acute neurological deficits. Speech is normal and follows commands. SKIN: Dry and warm Pelvic Exam: Blood in examining finger unable to palpate the uterus Cervical Exam: Cervix is fine. Triage Information Reviewed: Yes Vital Signs On Initial Exam: Initial Vitals Temp Pulse Resp BP Pulse Ox 99.1 F 70 15 140/74 93 07/30/18 20:42 07/30/18 20:42 07/30/18 20:42 07/30/18 20:42 07/30/18 20:42 Vital Signs Reviewed: Yes Diagnostics - Vital Signs Vital Signs Temp Pulse Resp BP Pulse Ox 07/30/18 20:42 99.1 F 70 15 140/74 93 - Laboratory Result Diagrams: 07/30/18 21:21 07/30/18 21:21 Lab Statement: Any lab studies that have been ordered have been reviewed, and results considered in the medical decision making process. - Ultrasound No standard instances Ultrasound Interpretation Completed By: Radiologist Summary of Ultrasound Findings: TRANSVAGINAL US: 1. Limited exam secondary to patient discomfort. 2. Hypoechoic heterogeneous lesion within the endometrial canal which could represent hemorrhagic debris, polyp, or neoplasm. Recommend OB /FACILITIES CUSTODIAN consultation/referral. ED PHYSICIAN REVIEWED THIS RADIOLOGY REPORT. Re-Evaluation - Re-Evaluation First Eval Re-Evaluation Time: 23:40 Change: Unchanged Comment: It was discussed with patient about possible malignancy and is to follow up with PROTOTYPE DEICER ASSEMBLER for further workup and evaluation. GIGU Course/Dx - Course Course Of Treatment: A 72 y/o female brought in by ambulance presents to the ED c/o vaginal bleeding and some vaginal pain. Currently, the patient is in no pain , but she indicated that sometimes she is in some vaginal pain. Physical examination findings significant for blood in examining finger and unable to palpate the uterus. Cerxis is fine and patient is morbidly obese. A Transvaginal US revealed 1. Limited exam secondary to patient discomfort. 2. Hypoechoic heterogeneous lesion within the endometrial canal which could represent hemorrhagic debris, polyp, or neoplasm. Recommend PROTOTYPE DEICER ASSEMBLER consultation/ referral. Hematology and Chemistry screens were done. No significant laboratory abnormalities were found. In the ED course, the patient received no medications. Patient will be discharged with a diagnosis of postmenopausal bleeding. Patient will be sent home with Percocet who is to take medications as prescribed. Patient is to follow up with PROTOTYPE DEICER ASSEMBLER in 1-2 days. It was discussed with patient about possible malignancy and is to follow up with PROTOTYPE DEICER ASSEMBLER for further workup and evaluation. Patient is to return to ED for any new or worsening symptoms. Patient is agreeable with this plan. - Diagnoses Provider Diagnoses: Postmenopausal bleeding Discharge - Sign-Out/Discharge Documenting (check all that apply): Patient Departure - DISCHARGE - Discharge Plan Condition: Stable Disposition: HOME Patient Education Materials: Dysfunctional Uterine Bleeding (ED) Referrals: Sully Acuna MD [Medical Doctor] - 2 Days Additional Instructions: FOLLOW UP WITH PROTOTYPE DEICER ASSEMBLER IN 1-2 DAYS. TAKE PERCOCET PRESCRIBED. RETURN TO ED FOR ANY NEW OR WORSENING SYMPTOMS. - Attestation Statements Document Initiated by Emilio: Yes Documenting Scribe: Carlito Fontanez Provider For Whom Emilio is Documenting (Include Credential): Osiris Webb MD Scribe Attestation: Carlito Medina, demaribed for Osiris Webb MD on 07/30/18 at 4551. Status of Scribe Document: Ready
[2018-07-30 21:31] LABS: ABS Basophils 0.1 10^3/ul (0-0.2); ABS Eosinophils 0.1 10^3/ul (0-0.6); ABS Lymphocytes 1.1 10^3/ul (1.0-4.8); ABS Monocytes 0.4 10^3/ul (0-0.8); ABS Nucleated RBC 0 10^3/ul; Eosinophil % 2.4 %; Hematocrit 42 % (35-47); Hemoglobin 13.9 g/dl (12.0-16.0); Lymphocyte % 19.7 %; Mean Corpuscular HGB Conc 33 g/dl (31-36); Mean Corpuscular Hemoglobin 31 pg (27-31); Mean Corpuscular Volume 92 fL (80-97); Mean Platelet Volume 7.8 fL (7.4-10.4); Nucleated Red Blood Cells % 0; Platelet Count 253 10^3/ul (150-450); Red Blood Count 4.49 10^6/ul (4.00-5.40); Red Cell Distribution Width 13 % (10.5-15); White Blood Count 5.8 10^3/ul (3.5-10.8)
[2018-07-30 21:39] LABS: Activated Partial Thrombo Time 37.5 seconds (26.0-36.3); INR 1.19 (0.77-1.02)
[2018-07-30 21:46] LABS: Albumin 4.1 g/dL (3.2-5.2); Albumin/Globulin Ratio 1.2 (1-3); BUN/Creatinine Ratio 22.5 (8-20); Calcium 9.6 mg/dL (8.6-10.3); EGFR Non-African American 53.3 (>60); Globulin 3.4 g/dL (2-4); Total Bilirubin 0.9 mg/dL (0.2-1.0); Total Protein 7.5 g/dL (6.4-8.9)
[2018-07-31 00:02] VITALS: BP 147/78
== END 2018-07-31 00:01 | disposition home or self-care (01) ==
LOC: ED 20:31
DX: N95.0 Postmenopausal bleeding (principal); Z88.0 Allergy status to penicillin; Z79.01 Long term (current) use of anticoagulants; Z86.711 Personal history of pulmonary embolism
CPT/HCPCS: 36415; 76830; 80053; 85025; 85610; 85730; 99282

== ENCOUNTER 2018-08-02 12:42 | Emergency (ER) | payer MEDICARE, MEDICAID ==
--- OUTSIDE RECORDS SUMMARY | 2018-08-02 13:27 | XMS REPORT | Continuity of Care Document ---
:1945 External Reference #:[id number] Author Name Alexys Castro M.D. Address [address] [place] [address] Care Team Providers Name Role Phone Wes Killian M.D. Primary Care Physician Unavailable Payers Type Date Identification Numbers Payment Provider Subscriber Policy Number: [id number] Today Option Premier Rosa Márquez PayID: [id number] [address] [address] [place] [address] Policy Number: [id number] Medicaid Rosa Márquez PayID: [id number] [address] [place] [address] Advance Directives Description No Information Available Problems Date Description Provider Status Onset: Vargas's esophagus Active Onset: Sleep apnea Active Onset: Gastroesophageal reflux disease Active Onset: Arthritis Active Onset: Spasm of back muscles Active Onset: Depressive disorder Active Onset: Hypercholesterolemia Active Onset: Atrial fibrillation Active Onset: 07/09/2016 Keratoconjunctivitis sicca, not Alexys Castro M.D. Active specified as Sjogren's Onset: 07/09/2016 Presence of intraocular lens Alexys Castro M.D. 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 Xarelto Active Tablets 20mg Shallish, 000 Wes M.D. Metoprolol Active Tablets ER 25mg Take One Unknown Succinate ER 000 24HR Tablet By Mouth Every Day Fenofibrate Active Tablets 145mg Shallish, 000 Wes M.D. Omeprazole Active Capsules DR 40mg Shallish, 000 Wes M.D. Immunizations Description No Information Available Vital Signs Description No Information Available Results Description No Information Available Procedures Date Code Description Status 07/09/2016 52055 Determination Of Refractive State Completed 07/09/2016 98400 Est Patient Comprehensive Exam Completed 07/12/2014 75845 Determination Of Refractive State Completed 06/11/2014 46940 Est Patient Comprehensive Exam Completed 05/22/2012 508 Refresh PM Ointment Completed 05/17/2012 63600 Extracapsular Cataract Extraction W/Intraocular Lens Completed 05/10/2012 82710 Extracapsular Cataract Extraction W/Intraocular Lens Completed 05/01/2012 66921 Ophthalmic Biometry Completed 05/01/2012 86144 Ophthalmic Biometry Completed 04/13/2012 94008 New Patient Comprehensive Exam Completed Encounters Type Date Location Provider Dx Diagnosis Office Visit 05/01/2012 Alexys Castro, Alexys Castro, 366.16 Senile Nuclear 1: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 If you are a smoker, we strongly recommend that you quit.If you are not a smoker, we strongly recommend that you do not start. Both of your eyes appear to be dry. Use artificial tears as directed. You can use the tears more often if you are reading a book or are on the computer,as we tend to blink less , making our eyes dry out more.[facility] offers a few items in our optical department to help alleviate dry eye symptoms. Systane and Refresh are good brands of tearsyou can use. You can pick these up at any pharmacy and they do not require a prescription.Follow up:2 Year Follow Up You can expect to have your eyes dilated at your next visit. If Dr. Castro orders any additional testing, it may require extra time. We recommend that you bring sunglasses, as dilationdrops often make you light sensitive until they wear off. We always recommend you bring someone to drive you home if you are uncomfortable driving with your eyes dilated. If you have any questions before your next visit, feel free to call our office at .Z96.1 Presence of intraocular lensComments:The artificial lens implants in both eyes appear to be stable at this time.
[2018-08-02 14:06] LABS: ABS Basophils 0.1 10^3/ul (0-0.2); ABS Eosinophils 0.2 10^3/ul (0-0.6); ABS Lymphocytes 1.1 10^3/ul (1.0-4.8); ABS Monocytes 0.4 10^3/ul (0-0.8); ABS Nucleated RBC 0 10^3/ul; Eosinophil % 4.3 %; Hematocrit 40 % (35-47); Hemoglobin 13.5 g/dl (12.0-16.0); Lymphocyte % 23.2 %; Mean Corpuscular HGB Conc 34 g/dl (31-36); Mean Corpuscular Hemoglobin 31 pg (27-31); Mean Corpuscular Volume 93 fL (80-97); Mean Platelet Volume 7.7 fL (7.4-10.4); Nucleated Red Blood Cells % 0.1; Platelet Count 265 10^3/ul (150-450); Red Cell Distribution Width 13 % (10.5-15); White Blood Count 4.9 10^3/ul (3.5-10.8)
[2018-08-02 14:11] LABS: INR 1.25 (0.77-1.02)
[2018-08-02 14:23] LABS: Albumin 3.9 g/dL (3.2-5.2); Albumin/Globulin Ratio 1.2 (1-3); BUN/Creatinine Ratio 22.9 (8-20); Calcium 9.5 mg/dL (8.6-10.3); EGFR Non-African American 49.3 (>60); Globulin 3.2 g/dL (2-4); Total Bilirubin 0.7 mg/dL (0.2-1.0); Total Protein 7.1 g/dL (6.4-8.9)
--- NOTE | 2018-08-02 14:33 | ED ---
GI/ HPI - HPI Summary HPI Summary: A 72 y/o F presents to ED with c/o worsening vaginal bleeding onset approx 6-8 days. She was seen at [facility] on 07/30/18 for the same sx, and had a transvag U/S , but she does not know the results. Today, she removed her pad and there was a large, dark red clot which worried her. Aggravating factors: movement. Associated sx: vaginal pain; suprapubic abd pain; lower back and buttocks pain. Denies vomiting. She is on Xarelto. She did not take her water pill today. Pt lives alone. Her last MODEL ENGINE MECHANIC visit was years ago. PCP is Dr. Killian, she had an annual exam in May 2018. Her current pad, which she put on approx 4 hours ago, is clean at bedside. Transvag U/S results from 07/30/18 as read by radiologist: IMPRESSION: 1. Limited exam secondary to patient discomfort. 2. Hypoechoic heterogeneous lesion within the endometrial canal which could represent hemorrhagic debris, polyp, or neoplasm. Recommend TOWER EQUIPMENT INSTALLER consultation/referral. Vitals at bedside: 68 bpm, HR 102/68. Home Medications Medication Instructions Recorded Confirmed Type Fenofibrate(NF) [Tricor(NF)] 145 mg PO DAILY 02/14/14 08/02/18 History Furosemide TAB* [Lasix TAB*] 40 mg PO DAILY 02/14/14 08/02/18 History Omeprazole CAP* [Prilosec CAP* 20 40 mg PO DAILY 02/14/14 08/02/18 History MG] Metoprolol Succinate XL TAB* 25 mg PO DAILY #30 tab.xl 11/26/15 08/02/18 Rx [Toprol XL TAB*] Nystatin CREAM* [Nystatin Cream*] 1 applic TOPICAL BID PRN 10/21/16 08/02/18 History Rivaroxaban TAB(*) [Xarelto 20 mg] 20 mg PO DAILY #30 tab 10/21/16 08/02/18 Rx - History of Current Complaint Chief Complaint: EDVaginalBleeding Time Seen by Provider: 08/02/18 14:29 Stated Complaint: VAGINAL BLEEDING Hx Obtained From: Patient, Family/Cheese Cook - sister, Shelby Onset/Duration: Started Days Ago, Atraumatic, Still Present Timing: Constant Severity: Severe Current Severity: Severe Vaginal Bleeding Description: Dark Red Pain Intensity: 8 Location of Pain: Suprapubic, Other - back and buttocks Additional Location for Females: Other - vagina Pain Characteristics: Aching Associated Signs and Symptoms: Positive: Other: - pos: pain at lower back, suprapubic abd, buttocks and vagina. Negative: Vomiting Aggravating Factor(s): Movement Alleviating Factor(s): Position - laying down - Additional Pertinent History Primary Care Physician: AN - Allergy/Home Medications Allergies/Adverse Reactions: Allergies Allergy/AdvReac Type Severity Reaction Status Date / Time Iodinated Contrast- Oral and Allergy Mild Rash Verified 10/13/17 16:40 IV Dye amoxicillin Allergy Unknown Verified 10/13/17 16:40 Reaction Details clavulanic acid Allergy Unknown Verified 10/13/17 16:40 [From Augmentin] Reaction Details peppers Allergy Intermediate lips swell Uncoded 08/16/17 14:40 environmental Allergy Mild Sneezing Uncoded 08/16/17 14:40 tony seltzer AdvReac Mild nausea/vomi Uncoded 08/16/17 14:40 ting PMH/Surg Hx/FS Hx/Imm Hx Previously Healthy: No Endocrine/Hematology History: Reports: Hx Anticoagulant Therapy Cardiovascular History: Reports: Hx Atrial Fibrillation, Hx Deep Vein Thrombosis Denies: Hx Congestive Heart Failure, Hx Myocardial Infarction Respiratory History: Reports: Hx Pulmonary Embolism - 02/2014, Hx Seasonal Allergies - unsure; chronically stuffy head, Hx Sleep Apnea - O2 2L NIGHT, Other Respiratory Problems/Disorders - PNX3 LAST 5YRS.AGO GI History: Reports: Hx Gastroesophageal Reflux Disease, Hx Hiatal Hernia History: Reports: Other Problems/Disorders - frequent UTIs Musculoskeletal History: Reports: Hx Arthritis - knees, Other Musculoskeletal History - Vargas's esophagus Sensory History: Reports: Hx Cataracts - cataracts removed 2011, Hx Contacts or Glasses Denies: Hx Hearing Aid Opthamlomology History: Reports: Hx Cataracts - cataracts removed 2011, Hx Contacts or Glasses Psychiatric History: Reports: Hx Anxiety, Hx Depression - hx of therapy, Other Psychiatric Issues/Disorders - claustrophobia Denies: Hx Eating Disorder, Hx of Violent Episodes Against Others - Cancer History Hx Chemotherapy: No Hx Radiation Therapy: No - Surgical History Surgery Procedure, Year, and Place: cholecystectomy 2011 [facility] [place]. tonsillectomy 1961. D+C 1967 Hx Anesthesia Reactions: No Infectious Disease History: No Infectious Disease History: Denies: Traveled Outside the [place] in Last 30 Days - Family History Known Family History: Positive: Renal Disease - mother, Other Family History: Breast CA - Social History Occupation: Disabled Lives: Alone Alcohol Use: None Hx Substance Use: No Substance Use Type: Reports: None Hx Tobacco Use: No Smoking Status (MU): Never Smoked Tobacco Review of Systems Negative: Fever Positive: Abdominal Pain, Other. Negative: Vomiting Positive: discharge - vaginal bleeding, pain - vaginal Musculoskeletal: Other - pos: lower back pain, pain at buttocks All Other Systems Reviewed And Are Negative: Yes Physical Exam - Summary Physical Exam Summary: Appearance: Well-appearing, moderate pain distress, obese, not orthostatic Skin: Warm, color reflects adequate perfusion, dry Head: Normal Head/Face inspection, atraumatic Eyes: Conjunctiva clear ENT: Normal inspection Neck: Supple, no nodes, no JVD Respiratory: Lungs clear, normal breath sounds, no respiratory distress Cardio: RRR, No murmur, pulses normal, brisk capillary refill Abdomen: Soft, nontender Bowel sounds: Present Musculoskeletal: Redness and swelling in bilat LE Psychological: Normal Neuro: Alert, muscle tone normal, no focal deficit : Wearing a pad, no blood present. Pelvic: 20 ccs of dark red blood, cervix with clotted blood at os, no abnormality of cervix noted, uncomfortable exam for patient, no mass noted, uterus normal size and mobile, adnexne not palpated due to patient size, non- tender. Exam chaperoned by GILBERT Salazar. Triage Information Reviewed: Yes Vital Signs On Initial Exam: Initial Vitals Temp Pulse Resp BP Pulse Ox 98.6 F 74 20 71/55 95 08/02/18 13:00 08/02/18 13:00 08/02/18 13:00 08/02/18 13:00 08/02/18 13:00 Vital Signs Reviewed: Yes Diagnostics - Vital Signs Vital Signs Temp Pulse Resp BP Pulse Ox 08/02/18 14:16 66 102/68 92 08/02/18 14:00 65 93 08/02/18 13:47 67 115/60 94 08/02/18 13:46 70 94 08/02/18 13:45 71 122/59 92 08/02/18 13:00 98.6 F 74 20 71/55 95 - Laboratory Lab Results: Lab Results 08/02/18 08/02/18 08/02/18 Range/Units 13:50 13:50 13:50 WBC 4.9 (3.5-10.8) 10^3/ul RBC 4.30 (4.00-5.40) 10^6/ul Hgb 13.5 (12.0-16.0) g/dl Hct 40 (35-47) % MCV 93 (80-97) fL MCH 31 (27-31) pg MCHC 34 (31-36) g/dl RDW 13 (10.5-15) % Plt Count 265 (150-450) 10^3/ul MPV 7.7 (7.4-10.4) fL Neut % (Auto) 62.2 % Lymph % (Auto) 23.2 % Leake % (Auto) 8.9 % Eos % (Auto) 4.3 % Baso % (Auto) 1.4 % Absolute Neuts (auto) 3.0 (1.5-7.7) 10^3/ul Absolute Lymphs (auto) 1.1 (1.0-4.8) 10^3/ul Absolute Monos (auto) 0.4 (0-0.8) 10^3/ul Absolute Eos (auto) 0.2 (0-0.6) 10^3/ul Absolute Basos (auto) 0.1 (0-0.2) 10^3/ul Absolute Nucleated RBC 0 10^3/ul Nucleated RBC % 0.1 INR (Anticoag Therapy) 1.25 H (0.77-1.02) Sodium 139 (135-145) mmol/L Potassium 4.0 (3.5-5.0) mmol/L Chloride 104 (101-111) mmol/L Carbon Dioxide 29 (22-32) mmol/L Anion Gap 6 (2-11) mmol/L BUN 25 H (6-24) mg/dL Creatinine 1.09 H (0.51-0.95) mg/dL Est GFR ( Amer) 59.7 (>60) Est GFR (Non-Af Amer) 49.3 (>60) BUN/Creatinine Ratio 22.9 H (8-20) Glucose 91 (70-100) mg/dL Calcium 9.5 (8.6-10.3) mg/dL Total Bilirubin 0.70 (0.2-1.0) mg/dL AST 22 (13-39) U/L ALT 14 (7-52) U/L Alkaline Phosphatase 59 (34-104) U/L Total Protein 7.1 (6.4-8.9) g/dL Albumin 3.9 (3.2-5.2) g/dL Globulin 3.2 (2-4) g/dL Albumin/Globulin Ratio 1.2 (1-3) Result Diagrams: 08/02/18 13:50 08/02/18 13:50 Lab Statement: Any lab studies that have been ordered have been reviewed, and results considered in the medical decision making process. Re-Evaluation - Re-Evaluation 1 Re-Evaluation Time: 15:55 Change: Unchanged Comment: Pelvic exam: 20 ccs of dark red blood, cervix with clotted blood at os , no abnormality of cervix noted, uncomfortable exam for patient, no mass noted , uterus normal size and mobile, adnexne not palpated due to patient size, non- tender. Chaperoned by GILBERT Salazar. GIGU Course/Dx - Course Course Of Treatment: Pt is a 72 y/o F presenting with ongoing vaginal bleeding onset approx 6-8 days. Pt was seen at [facility] on 07/30/18, had a transvag U/S. Earlier today, there was a large, dark red clot in her pad. Associated sx: vaginal pain; suprapubic abd pain; lower back and buttocks pain. She is on Xarelto. Her current pad, which she put on approx 4 hours ago, is clean at bedside. Lab work is WNL except elevated BUN, creatinine and BUN/C ratio. INR is 1.25. Allergies noted. Pt medications reviewed this visit. Will d/c patient home to f/u with OBGYN. - Diagnoses Provider Diagnoses: Post-menopausal bleeding - Physician Notifications Discussed Care Of Patient With: Sanjay Barahona - MODEL ENGINE MECHANIC Time Discussed With Above Provider: 16:31 Instructed by Provider To: Other - Recommends D/C and to keep f/u appt as prev scheduled. Discharge - Sign-Out/Discharge Documenting (check all that apply): Patient Departure - D/C - Discharge Plan Condition: Stable Disposition: HOME Patient Education Materials: Dysfunctional Uterine Bleeding (ED) Referrals: Baclawski,Sully, MD [Medical Doctor] - As Soon As Possible Wes Killian MD [Primary Care Provider] - 2 Days Additional Instructions: We have discussed your care with Dr. Barahona, MODEL ENGINE MECHANIC real estate acquisition analyst today, and he states that you do not need hospital admission at this time, or any further evaluation tonight. Continue to use the pads, drink lots of fluids, and keep the appointment with the [place] [facility]DEL ENGINE MECHANIC associates. RETURN TO THE EMERGENCY DEPARTMENT FOR CHANGING OR WORSENING SYMPTOMS - Attestation Statements Document Initiated by Pierceibbrett: Yes Documenting Scribe: Malachi Harding Provider For Whom Scribe is Documenting (Include Credential): Dr. Sofia Diallo MD Scribe Attestation: I, jacobo Rothed for Dr. Sofia Diallo MD on 08/02/18 at 1730. Status of Scribe Document: Ready
[2018-08-02] MEDS ORDERED: NS 0.9% 1000 ML* 2,000 ML IV SCH (15:00)
[2018-08-02 17:29] VITALS: BP 124/90
== END 2018-08-02 17:35 | disposition home or self-care (01) ==
LOC: ED 12:42
DX: N95.0 Postmenopausal bleeding (principal); R10.9 Unspecified abdominal pain; M54.5 Low back pain; Z79.01 Long term (current) use of anticoagulants; Z86.718 Personal history of other venous thrombosis and embolism
CPT/HCPCS: 36415; 80053; 83880; 85025; 85610; 87480; 87510; 87660; 88304; 99283

== ENCOUNTER → 2018-09-29 07:30 | Day surgery (SDC) | payer MEDICARE, MEDICAID ==
[~2018-09-29 07:30] MED LIST: Buffered Lidocaine 1% SYRIN* 1 ML/SYRINGE INTRADERM ONE; Lactated Ringers 1000 ML Bag* 1,000 ML IV SCH; Lidocaine 2% PF * 5 ML VIAL ONE; Midazolam* 1 MG/ML 2 ML VIAL (2 MG) ONE; Propofol* 10 MG/ML 20 ML BTL ONE; Silver Nitrate/Potassium Nitr* 1 EA STICK ONE; fentaNYL* 50 MCG/ML 2 ML VIAL (100 MCG VIAL) ONE
[2018-09-29 08:26] VITALS: BP 99/48
[2018-09-29 08:40] LABS: Hematocrit 36 % (35-47); Hemoglobin 12.1 g/dl (12.0-16.0); Mean Corpuscular HGB Conc 34 g/dl (31-36); Mean Corpuscular Hemoglobin 31 pg (27-31); Mean Corpuscular Volume 92 fL (80-97); Mean Platelet Volume 7.7 fL (7.4-10.4); Platelet Count 220 10^3/ul (150-450); Red Blood Count 3.91 10^6/ul (4.00-5.40); Red Cell Distribution Width 14 % (10.5-15); White Blood Count 4.2 10^3/ul (3.5-10.8)
[2018-09-29 08:59] LABS: BUN/Creatinine Ratio 27.8 (8-20); Calcium 9.3 mg/dL (8.6-10.3); EGFR African American 68.3 (>60); EGFR Non-African American 56.5 (>60); Potassium 3.7 mmol/L (3.5-5.0)
--- NOTE | 2018-09-29 09:07 | CONSULT ---
Consult Consult: 72 yo woman with PMH significant for morbid obesity, AZIZA, Afib (stopped Xarelto five days ago), DVT and resultant PE, who presented to the OR for a hysteroscopy but her case is being cancelled 2/2 new RLE edema, tenderness, new SOB, and hypotension. We are going to send her to the ED d/t concern for potential DVT/PE.
== END | disposition other institution (70) ==
LOC: OR 07:30
PROVIDERS: ATTEND Obstetrics & Gynecology
DX: N95.0 Postmenopausal bleeding (principal); Z53.09 Procedure and treatment not carried out because of other contraindication; G47.33 Obstructive sleep apnea (adult) (pediatric); I48.91 Unspecified atrial fibrillation
CPT/HCPCS: 36415; 80048; 85027; A9270-GY; J2250; J2704; J3010

== ENCOUNTER 2018-09-29 09:51 | Emergency (ER) | payer MEDICARE, MEDICAID ==
[2018-09-29] MEDS ORDERED: NS 0.9% 1000 ML** 1,000 ML IV ONE (09:57)
[2018-09-29 10:26] LABS: ABS Basophils 0.1 10^3/ul (0-0.2); ABS Eosinophils 0.2 10^3/ul (0-0.6); ABS Lymphocytes 1.2 10^3/ul (1.0-4.8); ABS Monocytes 0.6 10^3/ul (0-0.8); ABS Neutrophils 2.8 10^3/ul (1.5-7.7); ABS Nucleated RBC 0 10^3/ul; Eosinophil % 4.1 %; Hematocrit 36 % (35-47); Hemoglobin 12.2 g/dl (12.0-16.0); Lymphocyte % 24.2 %; Mean Corpuscular HGB Conc 34 g/dl (31-36); Mean Corpuscular Hemoglobin 31 pg (27-31); Mean Corpuscular Volume 91 fL (80-97); Mean Platelet Volume 7.7 fL (7.4-10.4); Nucleated Red Blood Cells % 0.1; Platelet Count 231 10^3/ul (150-450); Red Blood Count 3.98 10^6/ul (4.00-5.40); Red Cell Distribution Width 14 % (10.5-15); White Blood Count 4.9 10^3/ul (3.5-10.8)
--- NOTE | 2018-09-29 10:31 | ED ---
HPI Cardiac - HPI Summary HPI Summary: Patient is a 72 y/o morbidly obese F presenting [place] [facility] [place] for [place]B, RLE edema and chest pain, Hx of PE. Patient was scheduled for a uterine polyp removal today (hysteroscopy) for post menopausal bleeding by Dr. Castro. Anesthesiologist Dr. Marsha Mullins reported that there were concerns for PE due to patient's Sx and Hx. She notes systolic BP of 99, patient is usually in 120s, 92% on RA, Hx of sleep apnea, PE and psychiatric issues with anesthesiologist stating that pt has clautrophobia and issues with "putting things on her face" but does use CPAP. Patient was on Xarelto for afib, but stopped for surgery 5 days ago. Provider in room at 1026. In room, patient reports that she is experiencing SOB, states that she is congested. She notes pain at right leg and states that she has some pain at both knees bilaterally. She states she did not notice that right leg was swollen, had compression socks on before but took them off in anticipation of surgery. In room, she states no chest pain, states that she has had episodes of chest pain, notes that deep breaths aggravate Sx. No GONZALEZ, no dizziness, no abdominal pain, no N/V, no dysuria reported. Pulse 76, o2 92 on RA, BP 110/57. PMHx of PE once 2013 with DVT, no Hx of kidney problems. PSHx of 2015 umbilical mesh, 2011, cholecystecomy done by Dr. King, 1960s tonsillectomy, D&C in [place]. FMHx of diabetes, breast cancer, kidney disease in mother. Patient lives alone, no smoking, alcohol, drug usage. On triage, pain is rated 7/10, nothing is noted to aggravate/alleviate Sx. Home medications, allergies, and nurse's note reviewed. NOTE THAT PT STATES SHE CAN TAKE IV CONTRAST. STATES HER REACTION TO CONTRAST IS NAUSEA AND VOMITING, NOT ANAPHYLAXIS. In room, patient notes that she is hungry. In room, she reports allergy to only oral contrast and no allergy to IV contrast. NOTE THAT PT STATES SHE CAN TAKE IV CONTRAST. STATES HER REACTION TO CONTRAST IS NAUSEA AND VOMITING, NOT ANAPHYLAXIS. Allergies Allergy/AdvReac Type Severity Reaction Status Date / Time amoxicillin Allergy Severe Nausea Verified 09/29/18 10:21 clavulanic acid Allergy Severe Nausea Verified 09/29/18 10:21 [From Augmentin] Iodinated Contrast- Oral and Allergy Mild Nausea And Verified 09/29/18 10:21 IV Dye Vomiting peppers Allergy Intermediate lips Uncoded 09/29/18 10:21 swell, feel numb environmental Allergy Mild Sneezing Uncoded 09/29/18 10:21 tony seltzer AdvReac Mild nausea/vomi Uncoded 09/29/18 10:21 ting - History of Current Complaint Chief Complaint: EDExtremityLower Stated Complaint: LEG SWELLING/PAIN Hx Obtained From: Patient, Other: - Masrha MullinsDO Onset/Duration: Started Hours Ago, Still Present Timing: Constant Current Severity: Severe Pain Intensity: 7 Pain Scale Used: 0-10 Numeric - 7/10 Chest Pain Location: Mid Sternal Chest Pain Radiates: No Character: Sharp/Stabbing Aggravating Factor(s): Deep Breaths Alleviating Factor(s): Nothing Associated Signs and Symptoms: Positive: Chest Pain, Shortness of Breath, Edema - RLE, Other: - RLE pain, bilateral knee pain, congestion, no dysuria. Negative : Headaches, Dizziness, Nausea, Abdominal Pain, Vomiting Related History: Similar Episode/Dx as: - PE - Additional Pertinent History Primary Care Physician: [id number] - Allergy/Home Medications Allergies/Adverse Reactions: Allergies Allergy/AdvReac Type Severity Reaction Status Date / Time amoxicillin Allergy Severe Nausea Verified 09/29/18 10:21 clavulanic acid Allergy Severe Nausea Verified 09/29/18 10:21 [From Augmentin] pepper (genus Capsicum) Allergy Swelling Verified 09/29/18 10:36 environmental Allergy Mild Sneezing Uncoded 09/29/18 10:21 oral contrast Allergy See Comment Uncoded 09/29/18 11:04 tony seltzer AdvReac Mild nausea/vomi Uncoded 09/29/18 10:21 ting Home Medications: Home Medications Furosemide 40 mg PO DAILY 09/29/18 [History Confirmed 09/29/18] Omeprazole 40 mg PO DAILY 09/29/18 [History Confirmed 09/29/18] PMH/Surg Hx/FS Hx/Imm Hx Endocrine/Hematology History: Reports: Hx Anticoagulant Therapy - Xarelto for afib DC'd 5 days ago for planned surgery today Cardiovascular History: Reports: Hx Atrial Fibrillation, Hx Deep Vein Thrombosis , Hx Hypertension Denies: Hx Congestive Heart Failure, Hx Myocardial Infarction Respiratory History: Reports: Hx Pneumonia, Hx Pulmonary Embolism - 02/2014, Hx Seasonal Allergies - unsure; chronically stuffy head, Hx Sleep Apnea - uses CPAP GI History: Reports: Hx Gastroesophageal Reflux Disease, Hx Hiatal Hernia, Other GI Disorders - Vargas's esophagus History: Reports: Other Problems/Disorders - frequent UTIs Musculoskeletal History: Reports: Hx Arthritis - knees Sensory History: Reports: Hx Cataracts - cataracts removed 2011, Hx Contacts or Glasses Denies: Hx Hearing Aid Opthamlomology History: Reports: Hx Cataracts - cataracts removed 2011, Hx Contacts or Glasses Psychiatric History: Reports: Hx Anxiety, Hx Depression - hx of therapy, Other Psychiatric Issues/Disorders - claustrophobia Denies: Hx Eating Disorder, Hx of Violent Episodes Against Others - Cancer History Hx Chemotherapy: No Hx Radiation Therapy: No - Surgical History Surgery Procedure, Year, and Place: cholecystectomy 2011 [facility] [place]. tonsillectomy 1961. D+C 1966 Hx Anesthesia Reactions: No Infectious Disease History: No Infectious Disease History: Denies: Traveled Outside the [place] in Last 30 Days - Family History Known Family History: Positive: Diabetes, Renal Disease - mother Family History: Breast CA - Social History Alcohol Use: None Hx Substance Use: No Substance Use Type: Reports: None Hx Tobacco Use: No Smoking Status (MU): Never Smoked Tobacco Review of Systems Constitutional: Negative ENT: Other - POSITIVE - CONGESTION Positive: Chest Pain Positive: Shortness Of Breath Negative: Abdominal Pain, Vomiting, Nausea Positive: no symptoms reported. Negative: dysuria Musculoskeletal: Other - POSITIVE - RLE PAIN, BILATERAL KNEE PAIN Positive: Edema - RLE, swelling RLE Skin: Negative Neurological: Other - NEGATIVE - DIZZINESS Negative: Headache Psychological: Normal All Other Systems Reviewed And Are Negative: Yes Physical Exam - Summary Physical Exam Summary: Appearance: Ill-appearing, moderate pain distress, morbidly obese Skin: Warm, color reflects adequate perfusion, dry, right leg with swelling, redness distal third circumferential, no open areas; left leg with swelling and venous stasis changes, minimal redness Head: Normal Head/Face inspection, atraumatic Eyes: Conjunctiva clear ENT: Normal inspection Neck: Supple, no nodes, no JVD Respiratory: Decreased breath sounds throughout Cardio: RRR, No murmur, pulses normal, brisk capillary refill Abdomen: Soft, nontender Bowel sounds: Present Musculoskeletal: Strength Intact/ROM intact, right calf tenderness Psychological: Normal Neuro: Alert, muscle tone normal, no focal deficit Triage Information Reviewed: Yes Vital Signs On Initial Exam: Initial Vitals Temp Pulse Resp BP Pulse Ox 97.6 F 70 20 102/39 94 09/29/18 09:52 09/29/18 09:52 09/29/18 09:52 09/29/18 09:52 09/29/18 09:52 Vital Signs Reviewed: Yes Diagnostics - Vital Signs Vital Signs Temp Pulse Resp BP Pulse Ox 09/29/18 10:19 74 30 110/57 92 09/29/18 10:08 71 91 09/29/18 09:52 97.6 F 70 20 102/39 94 - Laboratory Result Diagrams: 09/29/18 10:12 09/29/18 10:12 Lab Statement: Any lab studies that have been ordered have been reviewed, and results considered in the medical decision making process. - Radiology CXR Radiology Interpretation Completed By: Radiologist Summary of Radiographic Findings: CXR IMPRESSION: CARDIOMEGALY WITH BIBASILAR ATELECTASIS VERSUS CONSOLIDATION. THIS REPORT WAS REVIEWED BY ED PHYSICIAN. - CT CTA chest/thorax CT Interpretation Completed By: Radiologist Summary of CT Findings: CTA CHEST/THORAX IMPRESSION: #. No evidence for pulmonary embolism. #. Evidence for mild diffuse airways inflammation with probable patchy regions of air. trapping. Correlate clinically for obstructive lung disease. #. Moderately large hiatal hernia results in compressive atelectasis at the basilar. segments of the LEFT lower lobe with interval worsening. THIS REPORT WAS REVIEWED BY ED PHYSICIAN. - Ultrasound No standard instances Ultrasound Interpretation Completed By: Radiologist Summary of Ultrasound Findings: VENOUS DOPPLER STUDY RIGHT LEG IMPRESSION: SLIGHTLY LIMITED EXAM OF THE RIGHT CALF, NO EVIDENCE FOR DEEP VENOUS. THROMBOSIS. THIS REPORT WAS REVIEWED BY ED PHYSICIAN. - EKG 1011 Cardiac Rate: NL - rate of 69 BPM EKG Rhythm: Sinus Rhythm ST Segment: Non-Specific Ectopy: None Summary of EKG Findings: EKG showed sinus rhythm with rate of 69 BPM, nml AV/IV CT, nml QTc, and nml axis. No acute changes. Ectopy none, non specific ST. Low voltage is noted. Re-Evaluation - Re-Evaluation First Eval Re-Evaluation Time: 14:43 Change: Improved Comment: Consults, results of labs and tests were discussed with patient, she will be discharged to home. Patient is agreeable with this. Disposition - Course Course Of Treatment: Patient is a 72 y/o F presenting from pre[place]op at [facility] [place] for [place]B , RLE edema and pain, Hx of PE. Patient was scheduled for a polyp removal today. Anesthesiologist Dr. Marsha Mullins reported that there were concerns for PE due to patient's Sx and Hx. She notes systolic BP of 99, patient is usually in 120s, 92% on RA, Hx of sleep apnea, PE and psychiatric issues with "putting things on her face". Patient was on Xarelto for afib, but stopped for surgery 5 days ago. Provider in room at 1026. In room, patient reports that she is experiencing SOB, states that she is congested. She notes pain at right leg and states that she has some pain at both knees bilaterally. She states she did not notice that right leg was swollen, had compression socks on before but took them off in anticipation of surgery. In room, she states no chest pain, states that she has had episodes of chest pain, notes that deep breaths aggravate Sx. No GONZALEZ, no dizziness, no abdominal pain, no N/V, no dysuria reported. Pulse 76, o2 92 on RA, BP 110/57. PMHx of PE once, no Hx of kidney problems. PSHx of 2015 umbilical mesh, 2012, cholecystecomy done by Dr. King, 1960s tonsillectomy, D& C in [place]. FMHx of diabetes, breast cancer, kidney disease in mother. Patient lives alone, no smoking, alc, drug usage. On triage, pain is rated 7/10 , nothing is noted to aggravate/alleviate Sx. Home medications, allergies, and nurse's note reviewed. In room, patient notes that she is hungry. In room, she reports allergy to only oral contrast and no allergy to IV contrast. On physical exam, right leg with swelling, redness distal third circumferential, no open areas; left leg with swelling and venous stasis changes, minimal redness. Right calf tenderness, morbid obesity is noted as well. EKG showed sinus rhythm with rate of 69 BPM, nml AV/IV CT, nml QTc, and nml axis. No acute changes. Ectopy none, non specific ST. Low voltage is noted. Labs showed RBC 3.98, INR 1.06, D-dimer 381, BUN 27, BUN/creatinine ratio 29.3, glucose 102, lactic acid 0.9, trop 0, CRP 1.71, BNP 135. Influenza A, B were negative. During ED course, patient received fluids. VENOUS DOPPLER STUDY RIGHT LEG IMPRESSION: SLIGHTLY LIMITED EXAM OF THE RIGHT CALF, NO EVIDENCE FOR DEEP VENOUS. THROMBOSIS. CXR IMPRESSION: CARDIOMEGALY WITH BIBASILAR ATELECTASIS VERSUS CONSOLIDATION. CTA CHEST/THORAX IMPRESSION: #. No evidence for pulmonary embolism. #. Evidence for mild diffuse airways inflammation with probable patchy regions of air. trapping. Correlate clinically for obstructive lung disease. #. Moderately large hiatal hernia results in compressive atelectasis at the basilar. segments of the LEFT lower lobe with interval worsening. 1405 - Discussed patient's case with Dr. Killian. Dr. Killian favors starting patient on cefuroxime for cellulitis, he defers to Dr. Castro on whether or not to restart patient on Xarelto. Dr. Killian will see the patient in office. 1423 - Dr. Castro was consulted, he states patient should be restarted on Xarelto. OF NOTE: PATIENT HAD NO ADVERSE OR ALLERGIC REACTION TO THE IV CONTRAST FOR CTA. Consults, results of labs and tests were discussed with patient, she will be discharged to home. Patient is agreeable with this. - Differential Dx - Cardiopulmonary Differential Diagnoses - Cardiopulmonary: Acute Dyspnea, Bronchitis, CHF, Chest Wall Pain, Exacerbation Of COPD, Influenza, Lower Resp Infection, Pleurisy, Pulmonary Embolism - Diagnoses Provider Diagnoses: Chest pain, Cellulitis of right leg, Morbid obesity, Bilateral edema of lower extremity, Sleep apnea, Hx pulmonary embolism, Hx of atrial fibrillation, no current medication - Physician Notifications Discussed Care Of Patient With: Wes Killian Time Discussed With Above Provider: 14:05 Instructed by Provider To: Other - 1405 - Discussed patient's case with Dr. Killian. Dr. Killian favors starting patient on cefuroxime for cellulitis, he defers to Dr. Castro on whether or not to restart patient on Xarelto. Dr. Killian will see the patient in office. 1423 - Dr. Castro was consulted, he states patient should be restarted on Xarelto. Discharge - Sign-Out/Discharge Documenting (check all that apply): Patient Departure - discharge Patient Received Moderate/Deep Sedation with Procedure: No - NO PROCEDURES DONE - Discharge Plan Condition: Stable Disposition: HOME Prescriptions: ceFUROXime TAB(*) [Ceftin TAB 250 MG(*)] 500 mg PO BID #20 tab Patient Education Materials: Cellulitis (ED) Referrals: Wes Killian MD [Primary Care Provider] - 3 Days (Have definite follow up with Dr. Killian is 3 days. ) Additional Instructions: Restart your xarelto. Call Dr. Castro's office to reschedule your surgery. See Dr. Killian in his office in 2-3 days. Return to the ER if you have new or worsening symptoms. - Billing Disposition and Condition Condition: STABLE Disposition: Home - Attestation Statements Document Initiated by Emilio: Yes Documenting Scribe: RIKY AGUERO Provider For Whom Emilio is Documenting (Include Credential): DENA HOLDER MD Scribe Attestation: RIKY Medina , scribed for DENA HOLDER MD on 10/04/18 at 2025. Scribe Documentation Reviewed: Yes Provider Attestation: The documentation as recorded by the RIKY perdue accurately reflects the service I personally performed and the decisions made by me, DENA HOLDER MD Status of Scribe Document: Viewed
[2018-09-29 10:33] LABS: INR 1.06 (0.77-1.02)
[2018-09-29 10:45] LABS: CKMB ng/mL 0.6 ng/mL (0.6-6.3)
[2018-09-29 11:05] LABS: Albumin 3.6 g/dL (3.2-5.2); Albumin/Globulin Ratio 1.3 (1-3); BUN/Creatinine Ratio 29.3 (8-20); C Reactive Protein 1.71 mg/L (<8.01); Calcium 9.3 mg/dL (8.6-10.3); EGFR African American 72.6 (>60); Globulin 2.8 g/dL (2-4); Potassium 3.9 mmol/L (3.5-5.0); Total Bilirubin 0.5 mg/dL (0.2-1.0); Total Protein 6.4 g/dL (6.4-8.9)
[2018-09-29] MEDS ORDERED: Iohexol 350* (CONTRAST) 500 ML MDV IV ONE (11:14)
[2018-09-29 11:43] LABS: Influenza A Molecular NEGATIVE (Negative); Influenza B Molecular NEGATIVE (Negative)
[2018-09-29 14:56] VITALS: BP 128/62
== END 2018-09-29 14:50 | disposition home or self-care (01) ==
LOC: ED 09:51
DX: R07.9 Chest pain, unspecified (principal); L03.115 Cellulitis of right lower limb; E66.01 Morbid (severe) obesity due to excess calories; G47.30 Sleep apnea, unspecified; Z86.711 Personal history of pulmonary embolism; I48.91 Unspecified atrial fibrillation; R60.9 Edema, unspecified; Z79.01 Long term (current) use of anticoagulants; K21.9 Gastro-esophageal reflux disease without esophagitis; F32.9 Major depressive disorder, single episode, unspecified; F41.9 Anxiety disorder, unspecified
CPT/HCPCS: 36415; 71045; 71275; 80053; 82550; 82553; 83605; 83880; 84484; 85025; 85379; 85610; 86140; 93005; 93970; 96360; 99283; Q9967

== ENCOUNTER 2019-06-15 16:21 | Emergency (ER) | payer MEDICARE, OTHER ==
[2019-06-15 16:55] LABS: Rapid Strep Molecular Negative (Negative)
--- OUTSIDE RECORDS SUMMARY | 2019-06-15 16:57 | XMS REPORT | Continuity of Care Document ---
:1945 External Reference #:[id number] Author Name Bridgette Lees, KONG Address [address] [place] [address] Care Team Providers Name Role Phone Wes Killian MD - Family Medicine Care Team Information Industrial Economics Professor [phone] [facility] Living - Care Team Information Industrial Economics Professor [phone] [facility] Physical Care Team Information Industrial Economics Professor Therapy - Physical Therapy Rnoen Blancas MD - Sleep Disorder Care Team Information Industrial Economics Professor Diagnostic Mary Weiner MD - Care Team Information Industrial Economics Professor [phone] Cardiovascular Disease [facility] Physical Therapy - Physical Care Team Information Industrial Economics Professor [phone] Therapist [facility] - Clinic/Center Care Team Information Industrial Economics Professor [employer] - [employer] [employer] [facility] Supplies Care Team Information Industrial Economics Professor [facility] - Care Team Information Industrial Economics Professor [phone] Gastroenterology Professional Home Care Care Team Information Industrial Economics Professor [phone] Problems Active Problems Provider Date 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 Onset: 11/18/2006 Obesity Danny Steiner M.D. Onset: 11/18/2006 Vargas's esophagus Wes Killian M.D. Onset: 07/02/2008 Depressive disorder Wes Killian M.D. Onset: 11/11/2011 Family history of breast cancer Wes Killian M.D. Onset: 12/26/2012 Obstructive sleep apnea syndrome Wes Killian M.D. Onset: 04/03/2013 Pulmonary embolism Wes Killian M.D. Onset: 04/03/2013 Paroxysmal atrial fibrillation Wes Killian M.D. Onset: 12/09/2015 Edema Wes Killian M.D. Onset: 09/04/2018 Mixed urinary incontinence Wes Killian M.D. Onset: 12/21/2018 Acute bronchitis Wes Killian M.D. Onset: 04/17/2019 Social History Type Date Description Comments Sex Unknown Tobacco Use Start: Unknown Never Smoked Cigarettes Tobacco Use Start: Unknown Patient has never smoked Smoking Status Reviewed: 06/12/19 Patient has never smoked Allergies, Adverse Reactions, Alerts Active Allergies Reaction Severity Comments Date Augmentin 01/03/2003 Black Pepper 04/03/2013 Medications Active Medications SIG Qnty Indications Ordering Date Provider David barajas as directed, 6tabs J20.9 Bridgette Jain 06/12/2019 250mg 2 tabs day one, one Lees, RISK CONTROL REPRESENTATIVE Tablets tab day 2-5 Diflucan take 1 pill 1tabs R39.198 Wes FHarshal 04/21/2019 150mg Frederick Killian Tablets Armodafinil take 1 tablet by 30tabs Wes FHarshal 03/16/2019 50mg mouth daily in the Frederick Killian Tablets morning for obstructive sleep apnea syndrome Fluoxetine HCL 1 by mouth every 30caps Wes FHarshal 02/02/2019 10mg day Frederick Killian Capsules Note needs support 2Pair Wes FHarshal 12/07/2018 stockings, mild Frederick Killian compression, above knee 15-18 mmhg, mild compression Fluticasone use two spray(s) in 16gm Wes FHarshal 05/29/2018 Propionate each nostril once Frederick Killian 50mcg/Act daily Suspension Mometasone Furoate apply three times a 15gm Wes FHarshal 04/18/2017 day as needed Frederick Killian 0.1% Cream Nystatin use as directed 30gm Wes FHarshal 03/01/2017 twice a day as Frederick Killian [id number] Cream needed Xarelto take 1 tablet by 90tabs Wes FHarshal 12/01/2016 20mg Tablets mouth daily with Frederick Killian food Metoprolol Succinate take one tablet by 90tabs Wes FHarshal 12/09/2015 ER mouth every day Frederick Killian 25mg Tablets ER 24HR Furosemide 1 by mouth every 90tabs R60.0 Wes FHarshal 01/24/2014 40mg day ShallCarolin cabralDHarshal Tablets Fenofibrate take one tablet by 90tabs E78.4 Wes FHarshal 12/26/2012 145mg mouth every day ShallCarolin cabralDHarshal Tablets Omeprazole take one capsule by 90caps K21.9 Wes FHarshal 01/01/2012 40mg mouth every day Frederick Killian Capsules DR History Medications Azithromycin 2 by mouth 6tabs Wes Stone Killian, 04/17/2019 - 250mg every day for 1 M.D. 04/24/2019 Tablets days, then 1 by mouth every day for 4 days Modafinil take one pill 20tabs Wes Stone Killian, 03/13/2019 - 100mg Tablets on days you M.D. 03/16/[address] Immunizations CPT Code Status Date Vaccine Lot # [id number] Given 05/29/2018 High-Dose, Influenza Virus Vacccine-fluzone 65 and older [id number] Given 04/18/2017 High-Dose, Influenza Virus Vacccine-fluzone 65 and [id number] older 31950 Given 04/08/2016 High-Dose, Influenza Virus Vacccine-fluzone 65 and [id number] older 95856 Given 05/22/2015 Influenza Vac, Quadrivalent, Slit Virus, Im [id number] 73490 Given 05/22/2015 Pneumococcal Conjugate Vacc-13 [id number] 47057 Given 05/02/2014 High-Dose, Influenza Virus Vacccine-fluzone 65 and [id number] older Given 06/05/2013 High-Dose, Influenza Virus Vacccine-fluzone 65 and [id number] older 25020 Given 04/13/2012 High-Dose, Influenza Virus Vacccine-fluzone 65 and [id number] older 50270 Given 06/13/2010 Pneumococcal Immunization 24189 Given 06/13/2010 Tdap Tetanus, W Pertussis 61746 Given 06/13/2010 DO Not Use Split Influenza Virus Vaccine 44245 Given 06/08/2008 DO Not Use Split Influenza Virus Vaccine [id number] Vital Signs Date Vital Result Comment 06/12/2019 3:32pm BP Systolic 118 mmHg BP Diastolic 60 mmHg Heart Rate 106 /min Body Temperature 98.6 F Respiratory Rate 20 /min O2 % BldC Oximetry 89 % 05/03/2019 6:10pm BP Systolic 130 mmHg BP Diastolic 80 mmHg Heart Rate 76 /min Body Temperature 98.8 F Respiratory Rate 16 /min Weight 277.00 lb Results Test Date Facility Test Result H/L Range Note Nuswab VG+ With 04/21/2019 [facility] Atopobium Low - 0 Score 1 Jessi ([phone] [facility] vaginae Species) [place] [address] (607)- - Bvab 2 Low - 0 Score Megasphaera 1 Low - 0 Score 2 Jessi albicans, Xiomara Negative Negative Jessi glabrata, Xiomara Negative Negative 3 Jessi tropicalis, Xiomara Negative Negative Jessi parapsilosis, Xiomara Negative Negative Jessi lusitaniae, Xiomara Negative Negative Jessi krusei, Xiomara Negative Negative 4 Trich vag by Xiomara Negative Negative Chlamydia trachomatis, Xiomara Negative Negative Neisseria gonorrhoeae, Xiomara Negative Negative Ua - Non Micro (Fma) 04/21/2019 [facility] Appearance CLEAR (607)- - Color YELLOW Glucose, Urine (Fma/CMC/CTX) NEG Bilirubin NEG Ketones NEG SP Grav 1.020 Blood NEG PH 7.0 Protein NEG Urobil 0.2 Nitrite NEG Leukocytes (Fma/CMC/Centrex) NEG Comprehensive Metabolic 04/17/2019 [facility](a) Sodium 144 mEq/L 134-149 Prof Potassium 4.4 mEq/L 3.6-5.5 Chloride 103 mEq/L 94-112 Carbon Dioxide 28 mEq/L 21-32 Glucose 83 mg/dL 70-105 BUN 25 mg/dL 6-26 Creatinine 1.0 mg/dL 0.6-1.4 BUN/Creat Ratio 25.0 CALC 8.0-36.0 Calcium 9.2 mg/dL 8.6-10.2 Total Protein 6.9 g/dL 6.4-8.3 Albumin 4.3 g/dL 3.8-5.5 Globulin 2.6 g/dL 2.0-4.8 A/G Ratio 1.7 CALC 0.6-2.3 Alk. Phosphatase 69 U/L 30-110 Alt (SGPT) 11 U/L 7-35 Ast (Sgot) 20 U/L 5-34 Total Bilirubin 0.3 mg/dL 0.2-1.3 GFR Non- 58 ml/min/1.73m^ Low >=60 GFR >60 ml/min/1.73m^ >=60 Laboratory test 04/17/2019 [facility](fma) Free T4 1.28 ng/dL 0.75- 1.54 finding TSH 1.59 mIU/L 0.50-6.00 CBC Electronic (Fma New) 04/17/2019 [facility] Medicine WBC 3.85 Low 4.0- 10.0 (607)- - RBC 4.08 3.93-6.0 Hemoglobin (Fma/CMC/CTX) 12.4 g/dL 12.0-17.0 Hematocrit (Fma/CMC/CTX) 38.4 % 35.0-50.0 Mean Corpuscular Vol 94.1 fL 80-95 Mean Corpuscular Hemoglobin 30.4 pg 25.6-32.2 Mean Corpuscular Hemo Concen 32.3 g/dL 32.2-36.0 Platelets 235 10^3/ul 163-400 RDW-CV 13.4 11.6-14.4 Mean Platelet Volume 9.3 fL 8.0-12.4 Absolute Neutrophils BLD 2.35 1.56-6.13 Absolute Lymphocytes 0.94 Low 1.18-3.74 Absolute Monocytes BLD Auto 0.36 0.24-0.82 Absolute Eos Blood 0.16 0.04-0.54 Absolute Basophils 0.04 0.01-0.08 Neutrophil % 61.0 % 34.0-70.0 Lymph% 24.4 % 20.0-52.0 Monocytes % 9.4 % 5.0-12.0 Eos % 4.2 % 0.7-7.0 Basophil% 1.0 % 0-1.2 Urine Drug SCR ED 04/11/2019 [facility] Urine Amphetamine None Detected None Detect & Pain Clinic Screen Urine Barbiturates Screen None Detected None Detect Urine Benzodiazepine Screen None Detected None Detect Urine Cannabinoids Screen None Detected None Detect Urine Cocaine Screen None Detected None Detect Urine Opiates Screen None Detected None Detect Urine Phencyclidine Screen None Detected None Detect 5 Laboratory test 12/21/2018 [facility] C Reactive 17.25 mg/L High <8.01 6, 7 finding Protein Ua - Non Micro 12/21/2018 [facility] Appearance clear ([facility]) (607)- - Color yellow Glucose, Urine (a/CMC/CTX) neg Bilirubin neg Ketones trace SP Grav >1.030 Blood neg PH 5.0 Protein neg Urobil 0.2 Nitrite neg Leukocytes (a/[facility]) neg CBC Electronic ([facility] New) 12/21/2018 [facility] WBC 5.22 4.0-10.0 (607)- - RBC 4.07 3.93-6.0 Hemoglobin (a/CMC/CTX) 12.2 g/dL 12.0-17.0 Hematocrit (a/CMC/CTX) 37.8 % 35.0-50.0 Mean Corpuscular Vol 92.9 fL 80-95 Mean Corpuscular Hemoglobin 30.0 pg 25.6-32.2 Mean Corpuscular Hemo Concen 32.3 g/dL 32.2-36.0 Platelets 239 10^3/ul 163-400 RDW-CV 13.6 11.6-14.4 Mean Platelet Volume 9.9 fL 8.0-12.4 Absolute Neutrophils BLD 3.17 1.56-6.13 Absolute Lymphocytes 1.24 1.18-3.74 Absolute Monocytes BLD Auto 0.60 0.24-0.82 Absolute Eos Blood 0.17 0.04-0.54 Absolute Basophils 0.04 0.01-0.08 Neutrophil % 60.6 % 34.0-70.0 Lymph% 23.8 % 20.0-52.0 Monocytes % 11.5 % 5.0-12.0 Eos % 3.3 % 0.7-7.0 Basophil% 0.8 % 0-1.2 1 1 APTIMA SWAB 2 Calculate total score by adding the 3 individual bacterial vaginosis (BV) marker scores together. Total score is interpreted as follows: Total score 0-1: Indicates the absence of BV. Total score 2: Indeterminate for BV. Additional clinical data should be evaluated to establish a diagnosis. Total score 3-6: Indicates the presence of BV. This test was developed and its performance characteristics determined by [facility]. It has not been cleared or approved by the Food and Drug Administration. The FDA has determined that such clearance or approval is not necessary. 3 This test was developed and its performance characteristics determined by [facility]. It has not been cleared or approved by the Food and Drug Administration. The FDA has determined that such clearance or approval is not necessary. 4 This test was developed and its performance characteristics determined by [facility]. It has not been cleared or approved by the Food and Drug Administration. The FDA has determined that such clearance or approval is not necessary. 5 The urine specimen was tested at the listed cutoffs: Drug class test level (ng/mL) Amphetamines 500 Barbiturates 200 Benzodiazepine metabolites 200 Cocaine metabolites 150 Cannabinoids 50 Opiates 300 Pcp 25 Specimen was received without chain of custody. Results should be used for medical purposes only. 6 [id number] 1 sst 7 [id number] 1 sst Procedures Date Code Description Status 04/21/2019 95708 Pulse Oximetry Completed 04/21/2019 71119 Electrocardiogram Complete Completed 10/06/2018 [id number] Mammogram Completed 08/04/2017 [id number] Mammogram Completed 03/15/2016 [id number] Bone Mineral Density Test Completed 07/09/2015 [id number] Mammogram Completed 10/23/2013 [id number] Colonoscopy Completed 07/06/2013 [id number] Mammogram Completed 06/12/2012 [id number] Mammogram Completed 05/13/2011 [id number] Mammogram Completed 09/08/2007 [id number] Mammogram Completed 10/06/2006 [id number] Colonoscopy Completed 06/09/2006 [id number] Mammogram Completed Medical Devices Description No Information Available Encounters Type Date Location Provider Dx Diagnosis Office Visit 05/03/2019 Main Office RILEY Gurrola M79.10 Myalgia, unspecified 6:00p site N77.1 Vaginitis, vulvitis and vulvovaginitis in dis classd elswhr E66.3 Overweight Office Visit 04/21/2019 11:00a [facility] Office Genesis Mathews, R07.89 Other chest PA pain K22.70 Vargas's esophagus without dysplasia R39.198 Other difficulties with micturition Office Visit 04/17/2019 2:20p Main Office Wes Killian, I48.0 Paroxysmal atrial M.D. fibrillation E66.8 Other obesity R60.0 Localized edema G47.33 Obstructive sleep apnea (adult) (pediatric) J20.9 Acute bronchitis, unspecified Office Visit 02/02/2019 10:40a [facility] Wes BrunsonHarshal I48.0 Paroxysmal atrial Constantin, M.DHarshal fibrillation E66.8 Other obesity R60.0 Localized edema Office Visit 12/21/2018 4:00p Main Office Wes BrunsonHarshal Killian, I48.0 Paroxysmal atrial M.D. fibrillation R19.7 Diarrhea, unspecified N39.46 Mixed incontinence Assessments Date Code Description Provider 06/12/2019 R60.0 Localized edema Bridgette Lees, RISK CONTROL REPRESENTATIVE 06/12/2019 E66.9 Obesity, unspecified Bridgette Lees, RISK CONTROL REPRESENTATIVE 06/12/2019 R00.2 Palpitations Bridgette Lees, RISK CONTROL REPRESENTATIVE 06/12/2019 R09.02 Hypoxemia Bridgette Lees, RISK CONTROL REPRESENTATIVE 06/12/2019 J20.9 Acute bronchitis, unspecified Bridgette Lees, RISK CONTROL REPRESENTATIVE 05/03/2019 M79.10 Myalgia, unspecified site RILEY Gurrola 05/03/2019 N77.1 Vaginitis, vulvitis and vulvovaginitis in RILEY Gurrola diseases classified elsewhere 05/03/2019 E66.3 Overweight RILEY Gurrola 04/21/2019 R07.89 Other chest pain RILEY Gurrola 04/21/2019 K22.70 Vargas's esophagus without dysplasia RILEY Gurrola 04/21/2019 R39.198 Other difficulties with micturition RILEY Gurrola 04/17/2019 I48.0 Paroxysmal atrial fibrillation Wes Killian M.D. 04/17/2019 E66.8 Other obesity Wes Killian M.D. 04/17/2019 R60.0 Localized edema Wes Killian M.D. 04/17/2019 G47.33 Obstructive sleep apnea (adult) (pediatric) Wes Killian M.D. 04/17/2019 J20.9 Acute bronchitis, unspecified Wes Killian M.D. 02/02/2019 I48.0 Paroxysmal atrial fibrillation Wes Killian M.D. 02/02/2019 E66.8 Other obesity Wes Killian M.D. 02/02/2019 R60.0 Localized edema Wes Killian M.D. 12/21/2018 I48.0 Paroxysmal atrial fibrillation Wes Killian M.D. 12/21/2018 R19.7 Diarrhea, unspecified Wes Killian M.D. 12/21/2018 N39.46 Mixed incontinence Wes Killian M.D. Plan of Treatment Future Appointment(s):06/15/2019 2:45 pm - TERESA Rodriguez at Main Ugnwki0508/30/2019 11:20 am - Wes Killian M.D. at Main [id number]/12/2019 - Bridgette Lees, NPR60.0 Localized edemaComments:Supportive Care:- Elevate legs- Increase protein in diet and try to drink at least 1-2 more glasses of water per day - Take frequent breaks while on your feet - Compression stockings ED Precautions reviewed MAKE SURE YOU ARE TAKING THE ZMGYGZ86.9 Obesity, unspecifiedComments:Counseled on heart healthy diet and ddbbkhwtL27.2 PalpitationsComments:Make sure you are drinking at least 8-10 glasses of water a dayReturn or seek medical care for the following: numbness or tingling of your extremitieschest painsevere headachechange in your visionchange in speech loss of consciousness Notify office if worsening symptoms or failure to improve. ED precautions utyyovrkU36.02 HypoxemiaComments:I want to see you back in a few days with you taking the lasix and the antibiotic to make sure your oxygen level is coming back upFollow up:2-3 daysJ20.9 Acute bronchitis, unspecifiedNew Medication:Azithromycin 250 mg - z karl as directed, 2 tabs day one, one tab day 2-5Comments:frequent cough, fatigue, yellow sputum, previously treated with the Z pack in the past and has been helpful, with her chronic conditions, potential benefits of treatment outweigh risks - this was discussed in office with patient CXR if not improvingAllComments:Medication Management Patient Understands medications he ' s taking? Yes No Are there Barriers to Adherence? Yes No Has the patient been asked about herbal supplements and therapies, andOT meds? Yes No Care Plan1. Patient has been queried about patient's goals/ preferences and functional/lifestyle goals at relevant visits. If relevant, describe: na2. Treatment goals as explained to the patient: above3. Are there barriers to meeting treatment goals? Yes No If Yes, please describe: comorbid conditions, disease process, polypharmacy, chronic conditions 4. Self- Management goals as described to the patient: Yes NoAs always, we strongly encourage a healthy diet and making physical activity a part of your every day life. If you have questions about how orwhere to start, please contact the office. Goals 06/12/2019 - Bridgette Lees, NPJ20.9 Acute bronchitis, unspecifiedthis is the worst you get - if you are worse, you are to head to the ED - this could be a result of the fluid accumulating in your system from the heart but if it is an infection, we can clear it up with the antibiotic Functional Status Description No Information Available Mental Status Description No Information Available Referrals Description No Information Available
--- OUTSIDE RECORDS SUMMARY | 2019-06-15 16:58 | XMS REPORT | Continuity of Care Document ---
:1945 External Reference #:[id number] Author Name RILEY Gurrola Address [address] [place] [address] Care Team Providers Name Role Phone Wes Killian MD - Family Medicine Care Team Information Inspection And Testing Supervisor [phone] [facility] Living - Care Team Information Inspection And Testing Supervisor [phone] [facility] Physical Care Team Information Inspection And Testing Supervisor Therapy - Physical Therapy Ronen Blancas MD - Sleep Disorder Care Team Information Inspection And Testing Supervisor [phone] Diagnostic Mary Weiner MD - Care Team Information Inspection And Testing Supervisor [phone] Cardi[facility] - Physical Care Team Information Inspection And Testing Supervisor Therapist [facility] - Clinic/Center Care Team Information Inspection And Testing Supervisor [employer] [facility] [employer] Care Team Information Inspection And Testing Supervisor [phone] [facility] - Care Team Information Inspection And Testing Supervisor [phone] [facility] Care Team Information Inspection And Testing Supervisor [phone] Problems Active Problems Provider Date Degenerative joint [...] Wes Killian M.D. Onset: 12/21/2018 Acute bronchitis Wse Killian M.D. Onset: 04/17/2019 Inactive Problems Postmenopausal bleeding Wes Killian M.D. Onset: 11/17/2018 Inactive: 02/03/2019 Diarrhea Wes Killian M.D. Onset: 12/07/2018 Inactive: 02/03/2019 Muscle pain Wes Killian M.D. Onset: 12/07/2018 Inactive: 02/03/2019 Social History Type Date Description Comments Sex Unknown Tobacco Use Start: Unknown Never Smoked Cigarettes Tobacco Use Start: Unknown Patient has never smoked Smoking Status Reviewed: 04/21/19 Patient has never smoked Allergies, Adverse Reactions, Alerts Active Allergies Reaction Severity Comments Date Augmentin 01/03/2003 Black Pepper 04/03/2013 Medications Active Medications SIG Qnty Indications Ordering Date Provider Diflucan take 1 pill 1tabs R39.198 Wes FHarshal 04/21/2019 150mg Frederick Killian Tablets Azithromycin 2 by mouth every 6tabs Wes FHarshal 04/17/2019 250mg day for 1 days, Frederick Killian Tablets then 1 by mouth every day for 4 days Armodafinil take 1 tablet by 30tabs Wes FHarshal 03/16/2019 50mg mouth daily in the Frederick Killian Tablets morning for obstructive sleep apnea syndrome Fluoxetine HCL 1 by mouth every 30caps Wes FHarshal 02/02/2019 10mg day Frederick Killian Capsules Note needs support 2Pair Wes FHarshal 12/07/2018 stockings, veronica Killian M.D. compression, above knee 15-18 mmhg, mild compression Fluticasone use two spray(s) in 16gm Wes FHarshal 05/29/2018 Propionate each nostril once Frederick Killian 50mcg/Act daily Suspension Mometasone Furoate apply three times a 15gm Wes F. 04/18/2017 day as needed Frederick Killian 0.1% Cream Nystatin use as directed 30gm Wes FHarshal 03/01/2017 twice a day as Frederick Killian [id number]/GM Cream needed Xarelto take 1 tablet by 90tabs Wes FHarshal 12/01/2016 20mg Tablets mouth daily with Frederick Killian food Metoprolol Succinate take one tablet by 90tabs Wes FHarshal 12/09/2015 ER mouth every day Frederick Killian 25mg Tablets ER 24HR Furosemide 1 by mouth every 90tabs R60.0 Wes FHarshal 01/24/2014 40mg day Frederick Killian Tablets Fenofibrate take one tablet by 90tabs E78.4 Wes FHarshal 12/26/2012 145mg mouth every day Frederick Killian Tablets Omeprazole take one capsule by 90caps K21.9 Wse FHarshal 01/01/2012 40mg mouth every day Frederick Killian Capsules DR Ar Medications Modafinil take one pill on 20tabs Wes F. Constantin, 03/13/2019 - 100mg days you have to Frederick 03/16/[address] Immunizations CPT Code Status Date Vaccine Lot # [id number] Given 05/29/2018 High-Dose, Influenza Virus Vacccine-fluzone 65 and older 04311 Given 04/18/2017 High-Dose, Influenza Virus Vacccine-fluzone 65 and [id number] older Given 04/08/2016 High-Dose, Influenza Virus Vacccine-fluzone 65 and [id number] older 00792 Given 05/22/2015 Influenza Vac, Quadrivalent, Slit Virus, Im [id number] Given 05/22/2015 Pneumococcal Conjugate Vacc-13 [id number] 98905 Given 05/02/2014 High-Dose, Influenza Virus Vacccine-fluzone 65 and [id number] older Given 06/05/2013 High-Dose, Influenza Virus Vacccine-fluzone 65 and [id number] older Given 04/13/2012 High-Dose, Influenza Virus Vacccine-fluzone 65 and [id number] older 55433 Given 06/13/2010 Pneumococcal Immunization 93529 Given 06/13/2010 Tdap Tetanus, W Pertussis 90180 Given 06/13/2010 DO Not Use Split Influenza Virus Vaccine 01518 Given 06/08/2008 DO Not Use Split Influenza Virus Vaccine [id number] Vital Signs Date Vital Result Comment 04/21/2019 11:21am BP Systolic 120 mmHg BP Diastolic 82 mmHg Heart Rate 80 /min Body Temperature 98.2 F Respiratory Rate 22 /min O2 % BldC Oximetry 93 % Weight 274.00 lb 04/17/2019 3:09pm BP Systolic 144 mmHg BP Diastolic 68 mmHg Heart Rate 92 /min Body Temperature 98.4 F Respiratory Rate 20 /min Weight 274.00 lb Results Test Date Facility Test Result H/L Range Note Comprehensive Metabolic 04/17/2019 [facility]) Sodium 144 mEq/L 134-149 Prof Potassium 4.4 [...] GFR >60 ml/min/1.73m^ >=60 Laboratory test 04/17/2019 [facility]) Free T4 1.28 ng/dL 0.75- 1.54 finding TSH 1.59 mIU/L 0.50-6.00 CBC Electronic ([facility] New) 04/17/2019 [facility] WBC 3.85 Low 4.0- 10.0 (607)- [...] % 0-1.2 Urine Drug SCR ED 04/11/2019 [facility] [place] Urine Amphetamine None Detected None Detect & Pain Clinic Screen Urine Barbiturates Screen None Detected None Detect Urine Benzodiazepine Screen None Detected None Detect Urine Cannabinoids Screen None Detected None Detect Urine Cocaine Screen None Detected None Detect Urine Opiates Screen None Detected None Detect Urine Phencyclidine Screen None Detected None Detect 1 Laboratory test 12/21/2018 [facility] [place] C Reactive 17.25 mg/L High <8.01 2, 3 finding Protein Ua - Non Micro 12/21/2018 [facility] Appearance clear (a) (607)- - Color yellow Glucose, Urine ([facility]ma/CMC/CTX) neg Bilirubin neg Ketones trace SP Grav >1.030 Blood neg PH 5.0 Protein neg Urobil 0.2 Nitrite neg Leukocytes (Fma/CMC/Centrex) neg CBC Electronic (a New) 12/21/2018 [facility] WBC 5.22 4.0-10.0 (607)- - RBC 4.07 3.93-6.0 Hemoglobin (Fma/CMC/CTX) 12.2 g/dL 12.0-17.0 Hematocrit (Fma/CMC/CTX) 37.8 % 35.0-50.0 Mean Corpuscular Vol 92.9 [...] 3.3 % 0.7-7.0 Basophil% 0.8 % 0-1.2 Comprehensive Metabolic 12/07/2018 [facility]) Sodium 143 mEq/L 134-149 Prof Potassium 4.4 mEq/L 3.6-5.5 Chloride 103 mEq/L 94-112 Carbon Dioxide 31 mEq/L 21-32 Glucose 86 mg/dL 70-105 BUN 21 mg/dL 6-26 Creatinine 0.9 mg/dL 0.6-1.4 BUN/Creat Ratio 23.3 CALC 8.0-36.0 Calcium 9.5 mg/dL 8.6-10.2 Total Protein 7.1 g/dL 6.4-8.3 Albumin 4.1 g/dL 3.8-5.5 Globulin 3.0 g/dL 2.0-4.8 A/G Ratio 1.4 CALC 0.6-2.3 Alk. Phosphatase 61 U/L 30-110 Alt (SGPT) 13 U/L 7-35 Ast (Sgot) 33 U/L 5-34 Total Bilirubin 0.7 mg/dL 0.2-1.3 GFR Non- >60 ml/min/1.73m^ >=60 GFR >60 ml/min/1.73m^ >=60 Laboratory test 12/07/2018 [facility]) Free T4 1.38 ng/dL 0.75- 1.54 finding TSH 1.42 mIU/L 0.50-6.00 CBC Electronic a 12/07/2018 [facility](a) WBC 4.6 x10^3/UL 4.0- 10.0 RBC 4.43 x10^6/UL 3.93-6.00 HGB 13.5 g/dL 12.0-17.0 HCT 41 % 35-50 MCV 92.6 fL 80.0-95.0 MCH 30.5 pg 25.6-32.2 MCHC 32.9 g/dL 32.2-36.0 RDW-CV 13.1 % 11.6-14.4 PLT 251 x10^3/UL 163-400 MPV 11.3 fL 9.4-12.4 Vesna# 2.60 x10^3/UL 1.56-6.13 Lymph# 1.30 x10^3/UL 1.18-3.74 Jessamine# 0.51 x10^3/UL 0.24-0.82 Eos # 0.2 x10^3/UL 0.0-0.5 Baso # 0.03 x10^3/UL 0.01-0.08 Vesna% 56.4 % 34.0-70.0 Lymph % 28.3 % 20.0-52.0 Jessamine% 11.1 % 5.0-12.0 Eos% 3.3 % 0.7-7.0 Baso% 0.7 % 0.1-1.2 Laboratory test 12/07/2018 [facility] [place] Reactive Protein 2.23 mg/L Normal <8.01 4, 5 finding Laboratory test 10/30/2018 [facility] [place] Surgical Interface SEE RESULT 6 finding Order BELOW 1 The urine specimen was tested at the listed cutoffs: Drug class test level (ng/mL) Amphetamines 500 Barbiturates 200 Benzodiazepine metabolites 200 Cocaine metabolites 150 Cannabinoids 50 Opiates 300 Pcp 25 Specimen was received without chain of custody. Results should be used for medical purposes only. 2 [id number] 1 sst 3 [id number] 1 sst 4 [id number] 5 [id number] 6 SEE RESULT BELOW Name: ROSA RANGEL : [address]: Gino Thurman MD Acct: [id number] Unit: [id number] AGE: 73 Location: ENDO Re10/30/18 SEX: F Status: DEP REF SPEC: [id number] CALE: 10/30/18- [facility] DR: Gino Thurman MD REQ: [id number] RECD: 10/30/18 STATUS: DIRK JEROME DR: Wes Killian MD _ ORDERED: LEVEL 4 FINAL DIAGNOSIS Gastroesophageal junction, biopsy: -- Benign squamous and columnar-type mucosa with chronic inflammation. -- Intestinal metaplasia is absent. -- Dysplasia is absent. POST-OPERATIVE DIAGNOSIS EGD: esophagus - biopsy for Vargas???s esophagus GROSS DESCRIPTION The specimen is received in formalin labeled, Biopsy EG Junction, and consists of a 0.4 x 0.3 x 0.1 cm aggregate of fiore-pink irregular soft tissue fragments which is submitted entirely in one cassette. Signed by and Reported on: Tessa Browning MD 10/31/18 1112 END OF REPORT DEPARTMENT OF PATHOLOGY, [address] [place] [address] Preston Najera M.D. Director [facility] # [id number] Procedures Date Code Description Status 11/17/2018 96744 Pulse Oximetry Completed 10/06/2018 [id number] Mammogram Completed 08/04/2017 [id number] Mammogram Completed 03/15/2016 [id number] Bone Mineral Density Test Completed 07/09/2015 [id number] Mammogram Completed 10/23/2013 [id number] Colonoscopy Completed 07/06/2013 [id number] Mammogram Completed 06/12/2012 [id number] Mammogram Completed 05/13/2011 [id number] Mammogram Completed 09/08/2007 [id number] Mammogram Completed 10/06/2006 [id number] Colonoscopy Completed 06/09/2006 [id number] Mammogram Completed Medical Devices Description No Information Available Encounters Type Date Location Provider Dx Diagnosis Office Visit 04/17/2019 Main Office Wes Killian I48.0 Paroxysmal atrial 2:20p M.D. fibrillation E66.8 Other obesity R60.0 Localized edema G47.33 Obstructive sleep apnea (adult) (pediatric) J20.9 Acute bronchitis, unspecified Office Visit 02/02/2019 10:40a [facility] Wes Ritter I48.0 Paroxysmal atrial Shallish, M.D. fibrillation E66.8 Other obesity R60.0 Localized edema Office Visit 12/21/2018 4:00p Main Office Wes Killian I48.0 Paroxysmal atrial M.D. fibrillation R19.7 Diarrhea, unspecified N39.46 Mixed incontinence Office Visit 12/07/2018 11:00a Main Office Wes F. Shallish, I48.0 Paroxysmal atrial M.D. fibrillation G47.33 Obstructive sleep apnea (adult) (pediatric) N95.0 Postmenopausal bleeding R19.7 Diarrhea, unspecified M79.10 Myalgia, unspecified site Office Visit 11/17/2018 11:00a [facility] Wes BrunsonHarshal I48.0 Paroxysmal atrial Constantin M.D. fibrillation G47.33 Obstructive sleep apnea (adult) (pediatric) K22.70 Vargas's esophagus without dysplasia N95.0 Postmenopausal bleeding Assessments Date Code Description Provider 04/21/2019 R07.89 Other chest pain RILEY Gurrola [...] 12/21/2018 N39.46 Mixed incontinence Wes Killian M.D. 12/07/2018 I48.0 Paroxysmal atrial fibrillation Wes Killian M.D. 12/07/2018 G47.33 Obstructive sleep apnea (adult) (pediatric) Wes Killian M.D. 12/07/2018 N95.0 Postmenopausal bleeding Wes Killian M.D. 12/07/2018 R19.7 Diarrhea, unspecified Wes Killian M.D. 12/07/2018 M79.10 Myalgia, unspecified site Wes Killian M.D. 11/17/2018 I48.0 Paroxysmal atrial fibrillation Wes Killian M.D. 11/17/2018 G47.33 Obstructive sleep apnea (adult) (pediatric) Wes Killian M.D. 11/17/2018 K22.70 Vargas's esophagus without dysplasia Wes Killian M.D. 11/17/2018 N95.0 Postmenopausal bleeding Wes Killian M.D. Plan of Treatment Future Appointment(s):04/30/2019 10:30 am - RILEY Gurrola at [facility] Vguqan9708/30/2019 11:20 am - Wes Killian M.D. at Main Xyezrf6604/21/2019 - Genesis Mathews, PAR07.89 Other chest painComments:If you feel periods of palpitations, heart racing please call the ambulance.K22.70 Vargas's esophagus without dysplasiaComments:start taking omeprazole 30 miunutes prior to other medications or any foodIf you continue to feel like food is getting stuck, please let us know and we may need to send you for another endoscopy of your throat/ esophagus.R39.198 Other difficulties with micturitionNew Medication: Diflucan 150 mg - take 1 pillComments:Take 1 diflucan pillUse nystatin powder to the groin.Follow up in 2 weeksAllComments:PCMHMedication Management Patient Understands medications he's taking? Yes Are there Barriers to Adherence? No Has the patient been asked about herbal supplements and therapies, and OTC meds? Yes Care Plan1. Patient has been queried about patient's goals/preferences and functional/lifestyle goals at relevant visits. Yes If relevant, describe: N/A2. Treatment goals as explained to the patient: above3. Are there barriers to meeting treatment goals? No If Yes , please describe:4. Self-Management goals as described to the patient: Yes As always, we strongly encourage a healthy diet and making physical activity a part of your every day life. If you have questions about how or where to start, please contact the office. Functional Status Description No Information Available Mental Status Description No Information Available Referrals Refer to Reason for Referral Status Appt Date Yann Castro Vaginal Bleeding jw Scheduled 11/29/[address] [place] [address] [phone] [facility] OVERNIGHT PULSE OXIMETRY Scheduled [address] [address] [place] [address] [phone]
--- OUTSIDE RECORDS SUMMARY | 2019-06-15 16:58 | XMS REPORT | Continuity of Care Document ---
:1945 External Reference #:[id number] Author Name RILEY Gurrola Address [address] [place] [address] Care Team Providers Name Role Phone Wes Killian MD - Family Medicine Care Team Information Hogshead Weigher [phone] [facility] Living - Care Team Information Hogshead Weigher [phone] [facility] Physical Care Team Information Hogshead Weigher [phone] Therapy - Physical Therapy Ronen Blancas MD - Sleep Disorder Care Team Information Hogshead Weigher Diagnostic Mary Wenier MD - Care Team Information Hogshead Weigher [phone] Cardiovascular Disease [place] [facility] - Physical Care Team Information Hogshead Weigher Therapist [facility] Wound Clinic - Clinic/Center Care Team Information Hogshead Weigher [facility] - Oxygen Equipment & Supplies Care Team Information Hogshead Weigher [facility] - Care Team Information Hogshead Weigher [phone] G[facility]ology [facility] Care Team Information Hogshead Weigher [phone] Problems Active Problems Provider Date Degenerative joint [...] Acute bronchitis Wes Killian M.D. Onset: 04/17/2019 Inactive Problems Postmenopausal bleeding Wes Killian M.D. Onset: 11/17/2018 Inactive: 02/03/2019 Diarrhea Wes Killian M.D. Onset: 12/07/2018 Inactive: 02/03/2019 Muscle pain Wes Killian M.D. Onset: 12/07/2018 Inactive: 02/03/2019 Social History Type Date Description Comments Sex Unknown Tobacco Use Start: Unknown Never Smoked Cigarettes Tobacco Use Start: Unknown Patient has never smoked Smoking Status Reviewed: 05/03/19 Patient has never smoked Allergies, Adverse Reactions, [...] 03/01/2017 twice a day as Frederick Killian [id number]/GM Cream needed Xarelto take 1 tablet by 90tabs Wes FHarshal 12/01/2016 20mg Tablets mouth daily with Frederick Killian food Metoprolol Succinate take one tablet by 90tabs Wes FHarshal 12/09/2015 ER mouth every day Frederick Killian 25mg Tablets ER 24HR Furosemide 1 by mouth every 90tabs R60.0 Wes FHarshal 01/24/2014 40mg day Carolin KillianDHarshal Tablets Fenofibrate take one tablet by 90tabs E78.4 Wes FHarshal 12/26/2012 145mg mouth every day Carolin KillianDHarshal Tablets Omeprazole take one capsule by 90caps K21.9 Wes FHarshal 01/01/2012 40mg mouth every day Frederick Killian Capsules DR History Medications Azithromycin 2 by mouth 6tabs Wes FHarshal Killian, 04/17/2019 - 250mg every day for 1 M.D. 04/24/2019 Tablets days, then 1 by mouth every day for 4 days Modafinil take one pill 20tabs Wes FHarshal Killian, 03/13/2019 - 100mg Tablets on days you M.D. 03/16/[address] Immunizations CPT Code Status Date Vaccine Lot # [id number] Given 05/29/2018 High-Dose, Influenza Virus Vacccine-fluzone 65 and older 11098 Given 04/18/2017 High-Dose, Influenza Virus Vacccine-fluzone 65 and [id number] older Given 04/08/2016 High-Dose, Influenza Virus Vacccine-fluzone 65 and [id number] older 33346 Given 05/22/2015 Influenza Vac, Quadrivalent, Slit Virus, Im [id number] 91455 Given 05/22/2015 Pneumococcal Conjugate Vacc-13 [id number] 73174 Given 05/02/2014 High-Dose, Influenza Virus Vacccine-fluzone 65 and [id number] older Given 06/05/2013 High-Dose, Influenza Virus Vacccine-fluzone 65 and [id number] older Given 04/13/2012 High-Dose, Influenza Virus Vacccine-fluzone 65 and [id number] older 19294 Given 06/13/2010 Pneumococcal Immunization 38251 Given 06/13/2010 Tdap Tetanus, W Pertussis 15624 Given 06/13/2010 DO Not Use Split Influenza Virus Vaccine 22059 Given 06/08/2008 DO Not Use Split Influenza Virus Vaccine [id number] Vital Signs Date Vital Result Comment 05/03/2019 6:10pm BP Systolic 130 mmHg BP Diastolic 80 mmHg Heart Rate 76 /min Body Temperature 98.8 F Respiratory Rate 16 /min Weight 277.00 lb 04/21/2019 11:21am BP Systolic 120 mmHg BP Diastolic 82 mmHg Heart Rate 80 /min Body Temperature 98.2 F Respiratory Rate 22 /min O2 % BldC Oximetry 93 % Weight 274.00 lb Results Test Date Facility Test Result H/L Range Note Nuswab VG+ With 04/21/2019 [facility] Low - 0 Score 1 Jessi ([phone] vaginae Species) [place] [address] (607)- - Bvab 2 Low - 0 [...] >60 ml/min/1.73m^ >=60 Laboratory test 04/17/2019 [facility]) Free T4 1.28 ng/dL 0.75- 1.54 finding TSH 1.59 mIU/L 0.50-6.00 CBC Electronic ([facility]) 04/17/2019 [facility] WBC 3.85 Low 4.0- 10.0 (607)- - [...] % 0-1.2 Urine Drug SCR ED 04/11/2019 [facility] Urine Amphetamine None Detected None Detect & Pain Clinic Screen Urine Barbiturates Screen None Detected None Detect Urine Benzodiazepine Screen None Detected None Detect Urine Cannabinoids Screen None Detected None Detect Urine Cocaine Screen None Detected None Detect Urine Opiates Screen None Detected None Detect Urine Phencyclidine Screen None Detected None Detect 5 Laboratory test 12/21/2018 [facility] C Reactive 17.25 mg/L High <8.01 6, 7 finding Protein Ua - Non Micro 12/21/2018 [facility] Appearance clear ([facility]) (607)- - Color yellow Glucose, Urine (a/CMC/CTX) neg Bilirubin neg Ketones trace SP Grav >1.030 Blood neg PH 5.0 Protein neg Urobil 0.2 Nitrite neg Leukocytes (a/[facility]) neg CBC Electronic ([facility]) 12/21/2018 [facility] WBC 5.22 4.0-10.0 (607)- - [...] 0.8 % 0-1.2 Comprehensive Metabolic 12/07/2018 [facility]) Sodium 143 mEq/L 134-149 Prof Potassium 4.4 [...] >60 ml/min/1.73m^ >=60 Laboratory test 12/07/2018 [facility]) Free T4 1.38 ng/dL 0.75- 1.54 finding TSH 1.42 mIU/L 0.50-6.00 CBC Electronic a 12/07/2018 [facility]) WBC 4.6 x10^3/UL 4.0- 10.0 RBC 4.43 x10^6/UL 3.93-6.00 HGB 13.5 g/dL 12.0-17.0 HCT 41 % 35-50 MCV 92.6 fL 80.0-95.0 MCH 30.5 pg 25.6-32.2 MCHC 32.9 g/dL 32.2-36.0 RDW-CV 13.1 % 11.6-14.4 PLT 251 x10^3/UL 163-400 MPV 11.3 fL 9.4-12.4 Vesna# 2.60 x10^3/UL 1.56-6.13 Lymph# 1.30 x10^3/UL 1.18-3.74 Dawson# 0.51 x10^3/UL 0.24-0.82 Eos # 0.2 x10^3/UL 0.0-0.5 Baso # 0.03 x10^3/UL 0.01-0.08 Vesna% 56.4 % 34.0-70.0 Lymph % 28.3 % 20.0-52.0 Dawson% 11.1 % 5.0-12.0 Eos% 3.3 % 0.7-7.0 Baso% 0.7 % 0.1-1.2 Laboratory test finding 12/07/2018 [facility] C Reactive Protein 2.23 mg/L Normal <8.01 8, 9 1 1 APTIMA SWAB 2 Calculate total [...] developed and its performance characteristics determined by [facility]. It has not been cleared or approved by the Food and Drug Administration. The FDA has determined that such clearance or approval is not necessary. 3 This test was developed and its performance characteristics determined by [facility]. It has not been cleared or approved by the Food and Drug Administration. The FDA has determined that such clearance or approval is not necessary. 4 This test was developed and its performance characteristics determined by [facility]. It has not been cleared or approved [...] be used for medical purposes only. 6 [id number] 1 sst 7 [id number] 1 sst 8 [id number] 9 [id number] Procedures Date Code Description Status 04/21/2019 57744 Pulse Oximetry Completed 04/21/2019 94800 Electrocardiogram Complete Completed 11/17/2018 56377 Pulse Oximetry Completed 10/06/2018 [id number] Mammogram Completed 08/04/2017 [id number] Mammogram Completed 03/15/2016 [id number] Bone Mineral Density Test Completed 07/09/2015 [id number] Mammogram Completed 10/23/2013 [id number] Colonoscopy Completed 07/06/2013 [id number] Mammogram Completed 06/12/2012 [id number] Mammogram Completed 05/13/2011 [id number] Mammogram Completed 09/08/2007 [id number] Mammogram Completed 10/06/2006 [id number] Colonoscopy Completed 06/09/2006 [id number] Mammogram Completed Medical Devices Description No Information Available Encounters Type Date Location Provider Dx Diagnosis Office Visit 04/21/2019 [facility] Genesis Mathews, R07.89 Other chest pain 11:00a RILEY K22.70 Vargas's esophagus without dysplasia R39.198 Other difficulties with micturition Office Visit 04/17/2019 2:20p [facility] Wes F. Shallish, I48.0 Paroxysmal atrial M.D. fibrillation E66.8 Other obesity R60.0 Localized edema G47.33 Obstructive sleep apnea (adult) (pediatric) J20.9 Acute bronchitis, unspecified Office Visit 02/02/2019 10:40a [facility] Wes F. I48.0 Paroxysmal atrial Shallish, M.D. fibrillation E66.8 Other obesity R60.0 Localized edema Office Visit 12/21/2018 4:00p [facility] Office Wes F. Shallish, I48.0 Paroxysmal atrial M.D. fibrillation R19.7 Diarrhea, unspecified N39.46 Mixed incontinence Office Visit 12/07/2018 11:00a [facility] Office Wes F. Shallish, I48.0 Paroxysmal atrial M.D. fibrillation G47.33 Obstructive sleep apnea (adult) (pediatric) N95.0 Postmenopausal bleeding R19.7 Diarrhea, unspecified M79.10 Myalgia, unspecified site Office Visit 11/17/2018 11:00a [facility] Wes F. I48.0 Paroxysmal atrial Shallish, M.D. fibrillation G47.33 Obstructive sleep apnea (adult) (pediatric) K22.70 Vargas's esophagus without dysplasia N95.0 Postmenopausal bleeding Assessments Date Code Description Provider 05/03/2019 M79.10 Myalgia, unspecified site RILEY Gurrola [...] Wes Killian M.D. Plan of Treatment Future Appointment(s):08/30/2019 11:20 am - Wes Killian M.D. at Main [facility]7105/03/2019 - Genesis Mathews, PAM79.10 Myalgia, unspecified siteComments: Continue to use tylenol, can take 2 pills in the morning, in the afternoon, and in the evening. Ice packs to the knees. Heat to the shoulders at night.N77.1 Vaginitis, vulvitis and vulvovaginitis in diseases classified elsewhereComments: Use talc free baby powders to help dry out vagina. Try applying vagisil as directed on the box.E66.3 OverweightComments:[facility] Sancho Townsend CONTACT INFORMATIONAddress:[address] [place], [place] [address]Squkr : Website:[email or web address] services.[facility] CenterllComments:PCMHMedication Management Patient Understands medications he's taking? Yes Are there Barriers to Adherence? No Has the patient been asked about herbal supplements and therapies, and OTC meds? Yes Care Plan1. Patient has been queried about patient's goals/preferences and functional/lifestyle goals at relevant visits. Yes If relevant, describe: N/A2. Treatment goals as explained to the patient: above3. Are there barriers to meeting treatment goals ? No If Yes, please describe:4. Self-Management goals as described to [...] Yann Castro Vaginal Bleeding jw Scheduled 11/29/2018 [address] [place] [address] [phone] [facility] OVERNIGHT PULSE OXIMETRY Scheduled [address] [facility] [address] [place] [address] [phone]
--- OUTSIDE RECORDS SUMMARY | 2019-06-15 16:58 | XMS REPORT | Continuity of Care Document ---
:1945 External Reference #:[id number] Author Name Morena Nieto DNP, RN, GRAIN TRIMMER-BC (transmitted by agent of provider Sandra Vaca) Address [address], [address] [place] [address] Care Team Providers Name Role Phone Wes Killian MD - Family Medicine Care Team Information [employer] [phone] Problems Active Problems Provider Date Obstructive sleep apnea syndrome Macey Batista MD Onset: 01/22/2016 Note: Severe. NPSG 03/29/16: AHI 45.6, sylvain oxygen 83% Morbid obesity Macey Batista MD Onset: 01/22/2016 Hypersomnia Morena Nieto DNP, RN, GRAIN TRIMMER-BC Onset: 05/30/2018 Social History Type Date Description Comments Sex Unknown Tobacco Use Start: Unknown Never Smoked Cigarettes Smoking Status Reviewed: 05/11/19 Never Smoked Cigarettes ETOH Use Denies alcohol use Tobacco Use Start: Unknown Patient has never smoked Recreational Drug Use Denies Drug Use Exercise Type/Frequency Does not exercise Allergies, Adverse Reactions, Alerts Active Allergies Reaction Severity Comments Date Augmentin 04/19/2014 ALL Spices (Especially Black 01/22/2016 Pepper) Iodinated Diagnostic Agents rash Mild per [facility] 05/20/2017 Padmini-[place] Nausea and Vomiting per [facility] 05/20/2017 Medications Active Medications SIG Qnty Indications Ordering Provider Date Armodafinil 1 tab in am 30tabs G47.33 Morena Nieto, 03/23/2019 150mg Tablets GILBERT RODRIGES, GRAIN TRIMMER-BC G47.14 Fenofibrate once daily Wes Killian MD 01/14/2017 145mg Furosemide 1 and 1/2 tablet po Wes Killian MD 01/11/2017 40mg Tablets daily as directed ( pt continues to take this dosage instead of 2 tablet Omeprazole 1 cap po daily Unknown 40mg Xarelto one tab daily Wes Killian MD 20mg Tablets Metoprolol Succinate ER 1 by mouth every day Wes Killian MD 25mg Tablets ER 24HR Nystatin-Triamcinolone apply twice a day as Unknown needed rash 668112-6.1Unit/GM-% Cream Mometasone Furoate apply to affected areas Unknown 0.1% Cream twice a day prn Fluoxetine HCL Wes Killian MD 10mg Capsules Fluticasone Propionate Wes Killian MD 50mcg/Act Suspension Immunizations Description No Information Available Vital Signs Date Vital Result Comment 05/11/2019 11:29am Height 61 inches 5'1" Weight 270.00 lb Per pt, pt in wheelchair Heart Rate 80 /min BP Systolic Sitting 106 mmHg Rue large cuff BP Diastolic Sitting 48 mmHg Rue large cuff Respiratory Rate 24 /min O2 % BldC Oximetry 94 % On Ra BMI (Body Mass Index) 51.0 kg/m2 02/07/2019 11:42am Height 61 inches 5'1" Weight 265.00 lb Per pt, pt in wheelchair Heart Rate 72 /min BP Systolic Sitting 84 mmHg Rue large cuff BP Diastolic Sitting 48 mmHg Rue large cuff BP Systolic Recheck 118 mmHg right, large BP Diastolic Recheck 58 mmHg right, large Respiratory Rate 16 /min O2 % BldC Oximetry 94 % On Ra BMI (Body Mass Index) 50.1 kg/m2 Results Test Date Facility Test Result H/L Range Note Urine Drug 04/11/2019 [facility] Urine None Detected None Detect SCR ED & [address] [place] [address] Screen [phone] Urine Barbiturates Screen None Detected None Detect Urine Benzodiazepine Screen None Detected None Detect Urine Cannabinoids Screen None Detected None Detect Urine Cocaine Screen None Detected None Detect Urine Opiates Screen None Detected None Detect Urine Phencyclidine Screen None Detected None Detect 1 1 The urine specimen was tested at the listed cutoffs: Drug class test level (ng/mL) Amphetamines 500 Barbiturates 200 Benzodiazepine metabolites 200 Cocaine metabolites 150 Cannabinoids 50 Opiates 300 Pcp 25 Specimen was received without chain of custody. Results should be used for medical purposes only. Procedures Date Code Description Status 04/11/2019 10980 Multiple Sleep Latency Or Wakefulness Testing Completed 10/23/2013 [id number] Colonoscopy Completed Medical Devices Description No Information Available Encounters Type Date Location Provider Dx Diagnosis Office Visit 05/11/2019 [facility] Morena Nieto, G47.33 Obstructive sleep 11:15a [facility]IG[facility], TERESA-SVEN apnea (adult) [facility] (pediatric) G47.14 Hypersomnia due to medical condition Office Visit 02/07/2019 [facility] And Morena G47.33 Obstructive sleep 11:30a [facility] Nieto RN, apnea (adult) [facility] ERI (pediatric) Z72.821 Inadequate sleep hygiene G47.10 Hypersomnia, unspecified Z68.43 Body mass index (BMI) 50.0-59.9, adult E66.01 Morbid (severe) obesity due to excess calories Office Visit 11/29/2018 [facility] Robina G47.33 Obstructive sleep 10:00a [facility] Albarran apnea (adult) [facility] (pediatric) G47.14 Hypersomnia due to medical condition Z68.43 Body mass index (BMI) 50.0-59.9, adult E66.01 Morbid (severe) obesity due to excess calories Assessments Date Code Description Provider 05/11/2019 G47.33 Obstructive sleep apnea (adult) Morena Nieto DNP, RN, TERESA-SVEN (pediatric) 05/11/2019 G47.14 Hypersomnia due to medical Morena Nieto DNP, GILBERT, GRAIN TRIMMER- SVEN condition 04/11/2019 G47.14 Hypersomnia due to medical Macey Batista MD condition 04/11/2019 G47.33 Obstructive sleep apnea (adult) Maecy Batista MD (pediatric) 02/07/2019 G47.33 Obstructive sleep apnea (adult) Morena Nieto DNP, RN, TERESA-SVEN (pediatric) 02/07/2019 Z72.821 Inadequate sleep hygiene Morena Nieto DNP, RN, TERESA-SVEN 02/07/2019 G47.10 Hypersomnia, unspecified Morena Nieto DNP, RN, TERESA- 02/07/2019 Z68.43 Body mass index (BMI) 50-59.9, Morena Nieto DNP, RN, GRAIN TRIMMER- adult 02/07/2019 E66.01 Morbid (severe) obesity due to Morena Nieto DNP, RN, GRAIN TRIMMER- excess calories 11/29/2018 G47.33 Obstructive sleep apnea (adult) Robina Albarran NP (pediatric) 11/29/2018 G47.14 Hypersomnia due to medical Robina Albarran NP condition 11/29/2018 Z68.43 Body mass index (BMI) 50-59.9, Robina Albarran NP adult 11/29/2018 E66.01 Morbid (severe) obesity due to Robina Albarran NP excess calories Plan of Treatment Future Appointment(s):11/12/2019 11:15 am - Morena Nieto DNP, RN, GRAIN TRIMMER- at [facility]06/27/2019 3:45 pm - Joey Turner M.D. at [facility]05/11/2019 - Morena Nieto DNP, RN, GRAIN TRIMMER- [facility] Obstructive sleep apnea (adult) (pediatric)New Orders:[facility], Ordered: 05/11/19Comments:Sleep Apnea - severe NPSG 03/29/16 AHI 45.6, sylvain oxygen 83%On CPAP AHI 1.2/hour, normalFollow up:6 monthsRecommendations: Continue PAP device, Benefitting and compliant with treatment. Cleaning Wipe off mask daily (baby wipe-no scent, or warm water) Clean mask, tubing, filter, and water chamber weekly in mild no scent dish soap and water. Hang to dry. If you have any sleepiness while driving you MUST avoid operating a vehicle or machinery. If you have difficulty with your equipment, or need to replace your mask or hoses, please contact your homecare agency. A weight change of 20 pounds or more may have an effect onyour equipment; if you are experiencing problems please call for an appointment. Try to lose weight,avoid weight gain If you have any further questions, please call the [facility] at .G47.14 Hypersomnia due to medical conditionRecommendations:Continue Armodafinil 150 mg, daily, if required to drive Prescription e-scribed to [facility] Functional Status Description No Information Available Mental Status Description No Information Available Referrals Description No Information Available
--- OUTSIDE RECORDS SUMMARY | 2019-06-15 16:58 | XMS REPORT | Continuity of Care Document ---
:1945 External Reference #:[id number] Author Name Wes Killian M.D. Address [address] [place] [address] Care Team Providers Name Role Phone Wes Killian MD - Family Medicine Care Team Information Uniform Cap Operator [phone] [facility] Healthy Living - Care Team Information Uniform Cap Operator [phone] [facility] Physical Care Team Information Uniform Cap Operator Therapy - Physical Therapy Ronen Blancas MD - Sleep Disorder Care Team Information Uniform Cap Operator [phone] Diagnostic Mary Weiner MD - Care Team Information Uniform Cap Operator [phone] [facility] [place] [facility] - Physical Care Team Information Uniform Cap Operator Therapist [facility] Wound Clinic - Clinic/Center Care Team Information Uniform Cap Operator [employer] - Oxygen Equipment & Supplies Care Team Information Uniform Cap Operator [facility] - Care Team Information Uniform Cap Operator [phone] [facility] Care Team Information Uniform Cap Operator [phone] Problems Active Problems Provider Date 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 Onset: 11/18/2006 Obesity Danny Steiner M.D. Onset: 11/18/2006 Vargas's esophagus Wes Killian M.D. Onset: 07/02/2008 Depressive disorder Wes Killian M.D. Onset: 11/11/2011 Family history of breast cancer eWs Killian M.D. Onset: 12/26/2012 Obstructive sleep apnea [...] Patient has never smoked Smoking Status Reviewed: 11/19/18 Patient has never smoked Allergies, Adverse Reactions, Alerts Active Allergies Reaction Severity Comments Date Augmentin 01/03/2003 Black Pepper 04/03/2013 Medications Active Medications SIG Qnty Indications Ordering Date Provider Azithromycin 2 by mouth every 6tabs Wes FHarshal 04/17/2019 250mg day for 1 days, Frederick Killian Tablets then 1 by mouth every day for 4 days Armodafinil take 1 tablet by 30tabs Wes F. 03/16/2019 50mg mouth daily in the Frederick Killian Tablets morning for obstructive sleep apnea syndrome Fluoxetine HCL 1 by mouth every 30caps Wes F. 02/02/2019 10mg day Frederick Killian Capsules Note needs support 2Pair Wes FHarshal 12/07/2018 stockings, veronica Killian M.D. compression, above knee 15-18 mmhg, mild compression Fluticasone use two spray(s) in 16gm Wes F. 05/29/2018 Propionate each nostril once Frederick Killian 50mcg/Act daily Suspension Mometasone Furoate apply three times a 15gm Wes F. 04/18/2017 day as needed Frederick Killian 0.1% Cream Nystatin use as directed 30gm Wes FHarshal 03/01/2017 twice a day as Frederick Killian 564248Avcn/GM Cream needed Xarelto take 1 tablet by [...] Modafinil take one pill on 20tabs Wes FHarshal Killian, 03/13/2019 - 100mg days you have to Frederick 03/16/[address] Immunizations CPT Code Status Date Vaccine Lot # [id number] Given 05/29/2018 High-Dose, Influenza Virus Vacccine-fluzone 65 and older 43690 Given 04/18/2017 High-Dose, Influenza Virus Vacccine-fluzone 65 and [id number] older 80511 Given 04/08/2016 High-Dose, Influenza Virus Vacccine-fluzone 65 and [id number] older 72980 Given 05/22/2015 Influenza Vac, Quadrivalent, Slit Virus, Im [id number] 15324 Given 05/22/2015 Pneumococcal Conjugate Vacc-13 [id number] 13805 Given 05/02/2014 High-Dose, Influenza Virus Vacccine-fluzone 65 and [id number] older Given 06/05/2013 High-Dose, Influenza Virus Vacccine-fluzone 65 and [id number] older 01791 Given 04/13/2012 High-Dose, Influenza Virus Vacccine-fluzone 65 and [id number] older 21055 Given 06/13/2010 Pneumococcal Immunization 79261 Given 06/13/2010 Tdap Tetanus, W Pertussis 97218 Given 06/13/2010 DO Not Use Split Influenza Virus Vaccine 24526 Given 06/08/2008 DO Not Use Split Influenza Virus Vaccine [id number] Vital Signs Date Vital Result Comment 04/17/2019 3:09pm BP Systolic 144 mmHg BP Diastolic 68 mmHg Heart Rate 92 /min Body Temperature 98.4 F Respiratory Rate 20 /min Weight 274.00 lb 02/02/2019 12:50pm BP Systolic 124 mmHg BP Diastolic 60 mmHg Heart Rate 76 /min Body Temperature 98.2 F Respiratory Rate 18 /min Height 60.5 inches 5'0.50" Weight 271.00 lb BMI (Body Mass Index) 52.0 kg/m2 Results Test Date Facility Test Result H/L Range Note Laboratory test 04/17/2019 Oscar Fregoso([facility]) Free T4 <pending> 0.75- 1.54 finding TSH <pending> 0.5-5.0 CBC Electronic (a New) 04/17/2019 [facility] Medicine WBC 3.85 Low 4.0- 10.0 (607)- [...] % 0-1.2 Urine Drug SCR ED 04/11/2019 [facility] Urine Amphetamine None Detected None Detect & Pain Clinic Screen Urine Barbiturates Screen None Detected None Detect Urine Benzodiazepine Screen None Detected None Detect Urine Cannabinoids Screen None Detected None Detect Urine Cocaine Screen None Detected None Detect Urine Opiates Screen None Detected None Detect Urine Phencyclidine Screen None Detected None Detect 1 Laboratory test 12/21/2018 [facility] C Reactive 17.25 mg/L High <8.01 2, 3 finding Protein Ua - Non Micro 12/21/2018 [facility] Appearance clear (a) (607)- - Color yellow Glucose, Urine (Fma/CMC/CTX) neg Bilirubin neg Ketones trace SP Grav >1.030 Blood neg PH 5.0 Protein neg Urobil 0.2 Nitrite neg Leukocytes (a/CMC/Centrex) neg CBC Electronic ([facility]) 12/21/2018 [facility] WBC 5.22 4.0-10.0 (607)- - RBC 4.07 3.93-6.0 Hemoglobin (Fma/CMC/CTX) 12.2 g/dL 12.0-17.0 Hematocrit (a/CMC/CTX) 37.8 % [...] 0.8 % 0-1.2 Comprehensive Metabolic 12/07/2018 Moore Zenobia([facility]) Sodium 143 mEq/L 134-149 Prof Potassium 4.4 [...] >60 ml/min/1.73m^ >=60 Laboratory test 12/07/2018 Oscar Fregoso([facility]) Free T4 1.38 ng/dL 0.75- 1.54 finding TSH 1.42 mIU/L 0.50-6.00 CBC Electronic Fma 12/07/2018 Oscar Fregoso([facility]) WBC 4.6 x10^3/UL 4.0- 10.0 RBC 4.43 x10^6/UL 3.93-6.00 HGB 13.5 g/dL 12.0-17.0 HCT 41 % 35-50 MCV 92.6 fL 80.0-95.0 MCH 30.5 pg 25.6-32.2 MCHC 32.9 g/dL 32.2-36.0 RDW-CV 13.1 % 11.6-14.4 PLT 251 x10^3/UL 163-400 MPV 11.3 fL 9.4-12.4 Vesna# 2.60 x10^3/UL 1.56-6.13 Lymph# 1.30 x10^3/UL 1.18-3.74 [place]# 0.51 x10^3/UL 0.24-0.82 Eos # 0.2 x10^3/UL 0.0-0.5 Baso # 0.03 x10^3/UL 0.01-0.08 Vesna% 56.4 % 34.0-70.0 Lymph % 28.3 % 20.0-52.0 [place]% 11.1 % 5.0-12.0 Eos% 3.3 % 0.7-7.0 Baso% 0.7 % 0.1-1.2 Laboratory test 12/07/2018 [facility] C Reactive Protein 2.23 mg/L Normal <8.01 4, 5 finding Laboratory test 10/30/2018 [facility] Surgical Interface SEE RESULT 6 finding Order BELOW 1 The urine specimen was tested at the listed cutoffs: Drug class test level (ng/mL) Amphetamines 500 Barbiturates 200 Benzodiazepine metabolites 200 Cocaine metabolites 150 Cannabinoids 50 Opiates 300 Pcp 25 Specimen was received without chain of custody. Results should be used for medical purposes only. 2 [id number] 1 sst 3 [id number] 1 sst 4 [id number] 5 [id number] 6 SEE RESULT BELOW Name: ROSA RANGEL : [address]: Gino Thurman MD Acct: [id number] Unit: [id number] AGE: 73 Location: ENDO Re10/30/18 SEX: F Status: DEP REF SPEC: [id number] CALE: 10/30/18- [facility] DR: Gino Thurman MD REQ: [id number] RECD: 10/30/18 STATUS: DIRK JEROME DR: Wes [...] 1112 END OF REPORT DEPARTMENT OF PATHOLOGY, [address] [place] [address] Preston Najera M.D. Director [facility] # [id number] Procedures Date Code Description Status 11/17/2018 11000 Pulse Oximetry Completed 10/06/2018 [id number] Mammogram Completed 08/04/2017 [id number] Mammogram Completed 03/15/2016 [id number] Bone Mineral Density Test Completed 07/09/2015 [id number] Mammogram Completed 10/23/2013 [id number] Colonoscopy Completed 07/06/2013 [id number] Mammogram Completed 06/12/2012 [id number] Mammogram Completed 05/13/2011 [id number] Mammogram Completed 09/08/2007 [id number] Mammogram Completed 10/06/2006 [id number] Colonoscopy Completed 06/09/2006 [id number] Mammogram Completed Medical Devices Description No Information Available Encounters Type Date Location Provider Dx Diagnosis Office Visit 02/02/2019 [facility] Wes BrunsonHarshal I48.0 Paroxysmal atrial 10:40a Frederick Killian fibrillation E66.8 Other obesity R60.0 Localized edema Office Visit 12/21/2018 4:00p Main Office Weseduard Killian I48.0 Paroxysmal atrial M.D. fibrillation R19.7 Diarrhea, unspecified N39.46 Mixed incontinence Office Visit 12/07/2018 11:00a Main Office Wes Killian I48.0 Paroxysmal atrial M.D. fibrillation G47.33 Obstructive sleep apnea (adult) (pediatric) N95.0 Postmenopausal bleeding R19.7 Diarrhea, unspecified M79.10 Myalgia, unspecified site Office Visit 11/17/2018 11:00a [facility] Wes Ritter I48.0 Paroxysmal atrial Frederick Killian fibrillation G47.33 Obstructive sleep apnea (adult) (pediatric) K22.70 Vargas's esophagus without dysplasia N95.0 Postmenopausal bleeding Assessments Date Code Description Provider 04/17/2019 I48.0 Paroxysmal atrial fibrillation Wes Killian [...] am - Wes Killian M.D. at Main Vmolpy8704/17/2019 - Wes Killian M.D.I48.0 Paroxysmal atrial fibrillationComments:Patient is in sinus rhythm today, her atrial fibrillation is paroxysmal, has routine followup with Dr. Dillon66.8 Other obesityComments: no change , continue present medication, and try to continue with use of sequential pumpR60.0 Localized edemaComments:Her legs look quite good today given her past kzdaxxeY60.33 Obstructive sleep apnea (adult) (pediatric)Comments :continue CPAP, and follow up with sleep labJ20.9 Acute bronchitis, unspecifiedComments:Patient's lungs are clear today however has purulent sputum , will start azithromycinAllNew Medication:Azithromycin 250 mg - 2 by mouth every day for 1 days, then 1 by mouth every day for 4 daysComments:Medication Management Patient Understands medications she's taking? Yes No Are there Barriers to Adherence? Yes No Has the patient been asked about herbal supplements and therapies, and OTC meds? Yes NoFollow up:3 months Functional Status Description No Information Available Mental Status Description No Information Available Referrals Refer to Reason for Referral Status Appt Date Yann Castro Vaginal Bleeding jw Scheduled 11/29/[address] [place] [place] [address] [phone] [facility] OVERNIGHT PULSE OXIMETRY Scheduled [address] [facility] [address] [place] [address] [phone]
--- OUTSIDE RECORDS SUMMARY | 2019-06-15 16:58 | XMS REPORT | Continuity of Care Document ---
:1945 External Reference #:[id number] Author Name RILEY Gurrola Address [address] [place] [address] Care Team Providers Name Role Phone Wes Killian MD - Family Medicine Care Team Information Pre Owned Sales Consultant [phone] [facility] Living - Care Team Information Pre Owned Sales Consultant [phone] [facility] Physical Care Team Information Pre Owned Sales Consultant [phone] Therapy - Physical Therapy Ronen Blancas MD - Sleep Disorder Care Team Information Pre Owned Sales Consultant Diagnostic Mary Weiner MD - Care Team Information Pre Owned Sales Consultant [phone] Cardiovascular Disease [place] Physical Therapy - Physical Care Team Information Pre Owned Sales Consultant [phone] Therapist [facility] - Clinic/Center Care Team Information Pre Owned Sales Consultant [employer] - Oxygen Equipment & Supplies Care Team Information Pre Owned Sales Consultant [facility] - Care Team Information Pre Owned Sales Consultant [phone] [facility] Care Team Information Pre Owned Sales Consultant [phone] Problems Active Problems Provider Date Degenerative joint [...] 03/01/2017 twice a day as Frederick Killian 451872Surj/GM Cream needed Xarelto take 1 tablet by [...] FHarshal 12/26/2012 145mg mouth every day Carolin KillianDHasrhal Tablets Omeprazole take one capsule by 90caps [...] CPT Code Status Date Vaccine Lot # [id number] Given 05/29/2018 High-Dose, Influenza Virus Vacccine-fluzone 65 and older 65697 Given 04/18/2017 High-Dose, Influenza Virus Vacccine-fluzone 65 and [id number] older Given 04/08/2016 High-Dose, Influenza Virus Vacccine-fluzone 65 and [id number] older 02289 Given 05/22/2015 Influenza Vac, Quadrivalent, Slit Virus, Im [id number] 17653 Given 05/22/2015 Pneumococcal Conjugate Vacc-13 [id number] 47771 Given 05/02/2014 High-Dose, Influenza Virus Vacccine-fluzone 65 and [id number] older Given 06/05/2013 High-Dose, Influenza Virus Vacccine-fluzone 65 and [id number] older Given 04/13/2012 High-Dose, Influenza Virus Vacccine-fluzone 65 and [id number] older 98132 Given 06/13/2010 Pneumococcal Immunization 83635 Given 06/13/2010 Tdap Tetanus, W Pertussis 88483 Given 06/13/2010 DO Not Use Split Influenza Virus Vaccine 59719 Given 06/08/2008 DO Not Use Split Influenza Virus Vaccine [id number] Vital Signs Date Vital Result Comment 04/21/2019 [...] Date Facility Test Result H/L Range Note Ua - Non Micro (a) 04/21/2019 [facility] Appearance CLEAR (607)- - Color YELLOW Glucose, Urine (a/CMC/CTX) NEG Bilirubin NEG Ketones NEG SP Grav 1.020 Blood NEG PH 7.0 Protein NEG Urobil 0.2 Nitrite NEG Leukocytes ([facility]) NEG Comprehensive Metabolic 04/17/2019 Moore [facility]obia([facility]) Sodium 144 mEq/L 134-149 Prof Potassium 4.4 [...] >60 ml/min/1.73m^ >=60 Laboratory test 04/17/2019 [facility]) Free T4 1.28 ng/dL 0.75- 1.54 finding TSH 1.59 mIU/L 0.50-6.00 CBC Electronic (a New) 04/17/2019 [facility] WBC 3.85 Low 4.0- 10.0 (607)- - [...] % 0-1.2 Urine Drug SCR ED 04/11/2019 [facility] Urine Amphetamine None Detected None Detect & Pain Clinic Screen Urine Barbiturates Screen None Detected None Detect Urine Benzodiazepine Screen None Detected None Detect Urine Cannabinoids Screen None Detected None Detect Urine Cocaine Screen None Detected None Detect Urine Opiates Screen None Detected None Detect Urine Phencyclidine Screen None Detected None Detect 1 Laboratory test 12/21/2018 [facility] C Reactive 17.25 mg/L High <8.01 2, 3 finding Protein Ua - Non Micro 12/21/2018 [facility] Appearance clear ([facility]) (607)- - Color yellow Glucose, Urine (Fma/CMC/CTX) neg Bilirubin neg Ketones trace SP Grav >1.030 Blood neg PH 5.0 Protein neg Urobil 0.2 Nitrite neg Leukocytes (Fma/CMC/Centrex) neg CBC Electronic (a New) 12/21/2018 [facility] WBC 5.22 4.0-10.0 (607)- - RBC [...] 0.8 % 0-1.2 Comprehensive Metabolic 12/07/2018 [facility](a) Sodium 143 mEq/L 134-149 Prof Potassium 4.4 [...] >60 ml/min/1.73m^ >=60 Laboratory test 12/07/2018 [facility]) Free T4 1.38 ng/dL 0.75- 1.54 finding TSH 1.42 mIU/L 0.50-6.00 CBC Electronic Fma 12/07/2018 [facility](a) WBC 4.6 x10^3/UL 4.0- 10.0 RBC 4.43 x10^6/UL 3.93-6.00 HGB 13.5 g/dL 12.0-17.0 HCT 41 % 35-50 MCV 92.6 fL 80.0-95.0 MCH 30.5 pg 25.6-32.2 MCHC 32.9 g/dL 32.2-36.0 RDW-CV 13.1 % 11.6-14.4 PLT 251 x10^3/UL 163-400 MPV 11.3 fL 9.4-12.4 Vesna# 2.60 x10^3/UL 1.56-6.13 Lymph# 1.30 x10^3/UL 1.18-3.74 [place]# 0.51 x10^3/UL 0.24-0.82 Eos # 0.2 x10^3/UL 0.0-0.5 Baso # 0.03 x10^3/UL 0.01-0.08 Vesna% 56.4 % 34.0-70.0 Lymph % 28.3 % 20.0-52.0 [place]% 11.1 % 5.0-12.0 Eos% 3.3 % 0.7-7.0 Baso% 0.7 % 0.1-1.2 Laboratory test 12/07/2018 [facility] C Reactive Protein 2.23 mg/L Normal <8.01 4, 5 finding Laboratory test 10/30/2018 [facility] Surgical Interface SEE RESULT 6 finding Order BELOW 1 The urine specimen was tested at the listed cutoffs: Drug class test level (ng/mL) Amphetamines 500 Barbiturates 200 Benzodiazepine metabolites 200 Cocaine metabolites 150 Cannabinoids 50 Opiates 300 Pcp 25 Specimen was received without chain of custody. Results should be used for medical purposes only. 2 [id number] 1 sst 3 [id number] 1 sst 4 [id number] 5 [id number] 6 SEE RESULT BELOW Name: ROSA RANGEL : [address]: Gino Thurman MD Acct: [id number] Unit: [id number] AGE: 73 Location: ENDO Re10/30/18 SEX: F Status: DEP REF SPEC: [id number] CALE: 10/30/18- SUBM DR: Gino Thurman MD REQ: [id number] RECD: 10/30/181149 STATUS: DIRK JEROME DR: Wes Killian MD [...] 1112 END OF REPORT DEPARTMENT OF PATHOLOGY, [address] [place] [address] Preston Najera M.D. Director [facility] # [id number] Procedures Date Code Description Status 11/17/2018 94605 Pulse Oximetry Completed 10/06/2018 [id number] Mammogram Completed 08/04/2017 [id number] Mammogram Completed 03/15/2016 [id number] Bone Mineral Density Test Completed 07/09/2015 [id number] Mammogram Completed 10/23/2013 [id number] Colonoscopy Completed 07/06/2013 [id number] Mammogram Completed 06/12/2012 [id number] Mammogram Completed 05/13/2011 [id number] Mammogram Completed 09/08/2007 [id number] Mammogram Completed 10/06/2006 [id number] Colonoscopy Completed 06/09/2006 [id number] Mammogram Completed Medical Devices Description No Information Available Encounters Type Date Location Provider Dx Diagnosis Office Visit 04/17/2019 Main Office Wes Killian I48.0 Paroxysmal atrial 2:20p Frederick fibrillation E66.8 Other obesity R60.0 Localized edema G47.33 Obstructive sleep apnea (adult) (pediatric) J20.9 Acute bronchitis, unspecified Office Visit 02/02/2019 10:40a [facility] Wes Medina48.0 Paroxysmal atrial Frederick Killian fibrillation E66.8 Other obesity R60.0 Localized edema Office Visit 12/21/2018 4:00p Main Office Wes Tomisha, I48.0 Paroxysmal atrial M.D. fibrillation R19.7 Diarrhea, unspecified N39.46 Mixed incontinence Office Visit 12/07/2018 11:00a Main Office Wes BrunsonHarshal Yousufmisha, I48.0 Paroxysmal atrial M.D. fibrillation G47.33 Obstructive [...] Appointment(s):04/30/2019 10:30 am - RILEY Gurrola at [facility] Pphvtg2408/30/2019 11:20 am - Wes Killian M.D. at [facility] Kudtjm8204/21/2019 - Genesis Mathews PAR07.89 Other chest painComments:If you feel periods [...] Castro Vaginal Bleeding jw Scheduled 11/29/[address] [place] [address] [phone] [facility] OVERNIGHT PULSE OXIMETRY Scheduled [address] [address] [place] [address] [phone]
[2019-06-15 19:59] LABS: ABS Basophils 0.1 10^3/ul (0-0.2); ABS Eosinophils 0.3 10^3/ul (0-0.6); ABS Lymphocytes 1.3 10^3/ul (1.0-4.8); ABS Monocytes 0.5 10^3/ul (0-0.8); ABS Neutrophils 3.3 10^3/ul (1.5-7.7); Eosinophil % 5.1 %; Hematocrit 40 % (35-47); Hemoglobin 13.3 g/dL (12.0-16.0); Lymphocyte % 23.1 %; Mean Corpuscular HGB Conc 33 g/dL (31-36); Mean Corpuscular Hemoglobin 30 pg (27-31); Mean Corpuscular Volume 91 fL (80-97); Mean Platelet Volume 7.6 fL (7.4-10.4); Nucleated Red Blood Cells % 0.1; Platelet Count 251 10^3/uL (150-450); Red Blood Count 4.39 10^6 /uL (3.70-4.87); Red Cell Distribution Width 14 % (10-15); White Blood Count 5.4 10^3/uL (3.5-10.8)
[2019-06-15 20:05] LABS: INR 1.12 (0.82-1.09)
[2019-06-15 20:16] LABS: Albumin 4.1 g/dL (3.2-5.2); Albumin/Globulin Ratio 1.2 (1-3); BUN/Creatinine Ratio 20.2 (8-20); Calcium 9.9 mg/dL (8.6-10.3); EGFR African American 59.5 (>60); EGFR Non-African American 49.2 (>60); Globulin 3.5 g/dL (2-4); Potassium 4.1 mmol/L (3.5-5.0); Total Bilirubin 0.4 mg/dL (0.2-1.0); Total Protein 7.6 g/dL (6.4-8.9)
--- NOTE | 2019-06-15 20:18 | ED ---
Complex/Multi-Sys Presentation - HPI Summary HPI Summary: 73 year old F presenting to [facility] complains of worsening cough since 6 days ago. Patient states that Tuesday 06/12, she woke up in the morning with a sore throat. States she saw nurse practitioner at primary care provider's office on Tuesday 06/12 and was prescribed azithromycin. Patient states she has finished her azithromycin but has not had improvement in sx. Today 06/15, she developed hemoptysis. Saw another nurse practitioner today 06/15 in primary care provider' s office and was referred to ED. Reports intermittent body temperature 99F, diffuse chest pain, shortness of breath, dizziness, light headedness, diarrhea, myalgia, and "racing heart." Patient denies chills, erythema of eyes, abdominal pain, nausea/vomiting, dysuria, hematuria, edema, rash. No bilateral extremity swelling. The patient rates the pain 8/10 in severity. Symptoms aggravated by nothing. Symptoms alleviated by nothing. Hx pneumonia. States she wears CPAP machine at night and sleeps on 2 pillows. No exposure hx to TB. - History Of Current Complaint Chief Complaint: EDGeneral Time Seen by Provider: 06/15/19 19:33 Hx Obtained From: Patient Onset/Duration: Lasting Days - 6, Still Present, Worse Since - today Timing: Constant, Intermittent, Lasting: Severity Currently: Moderate - 7/10 Aggravating Factor(s): Nothing Alleviating Factor(s): Nothing Associated Signs And Symptoms: Positive: Other - sore throat, body temperature 99F, diffuse chest pain, shortness of breath, dizziness, light headedness, diarrhea, myalgia, and "racing heart," hemoptysis; NEG: chills, erythema of eyes , abdominal pain, nausea/vomiting, dysuria, hematuria, edema, rash, dizziness, bilateral extremity swelling - Allergies/Home Medications Allergies/Adverse Reactions: Allergies Allergy/AdvReac Type Severity Reaction Status Date / Time amoxicillin Allergy Severe Nausea Verified 09/29/18 10:21 clavulanic acid Allergy Severe Nausea Verified 09/29/18 10:21 [From Augmentin] pepper (genus Capsicum) Allergy Swelling Verified 09/29/18 10:36 environmental Allergy Mild Sneezing Uncoded 09/29/18 10:21 oral contrast Allergy See Comment Uncoded 09/29/18 11:04 tony franklin AdvReac Mild nausea/vomi Uncoded 09/29/18 10:21 ting Home Medications: Home Medications Armodafinil (NF) [Nuvigil (NF)] 150 mg PO DAILY 06/15/19 [History Confirmed 03/26] Azithromycin TAB* [Zithromax TAB (Z-BOOGIE) 250 mg #6 tabs] 2 tab PO .TODAY, THEN 1 DAILY 06/15/19 [History Confirmed 06/15/19] PMH/Surg Hx/FS Hx/Imm Hx Endocrine/Hematology History: Reports: Hx Anticoagulant Therapy - Xarelto for afib DC'd 5 days ago for planned surgery today Cardiovascular History: Reports: Hx Atrial Fibrillation, Hx Deep Vein Thrombosis , Hx Hypertension, Other Cardiovascular Problems/Disorders - a-fib Denies: Hx Congestive Heart Failure, Hx Myocardial Infarction Respiratory History: Reports: Hx Pneumonia, Hx Pulmonary Embolism - 02/2014, Hx Seasonal Allergies - unsure; chronically stuffy head, Hx Sleep Apnea - uses CPAP , Other Respiratory Problems/Disorders - PNX3 LAST 5YRS.AGO GI History: Reports: Hx Gastroesophageal Reflux Disease, Hx Hiatal Hernia, Other GI Disorders - Vargas's esophagus History: Reports: Other Problems/Disorders - frequent UTIs Musculoskeletal History: Reports: Hx Arthritis - knees, Other Musculoskeletal History - Vargas's esophagus Sensory History: Reports: Hx Cataracts - cataracts removed 2011, Hx Contacts or Glasses Denies: Hx Hearing Aid Opthamlomology History: Reports: Hx Cataracts - cataracts removed 2011, Hx Contacts or Glasses Psychiatric History: Reports: Hx Anxiety, Hx Depression - hx of therapy, Other Psychiatric Issues/Disorders - claustrophobia Denies: Hx Eating Disorder, Hx of Violent Episodes Against Others - Cancer History Hx Chemotherapy: No Hx Radiation Therapy: No - Surgical History Surgery Procedure, Year, and Place: cholecystectomy 2011 [facility]. tonsillectomy 1961. D+C 1966 Hx Anesthesia Reactions: No Infectious Disease History: No Infectious Disease History: Denies: Traveled Outside the [place] in Last 30 Days - Family History Known Family History: Positive: Diabetes, Renal Disease - mother, Other Family History: Breast CA - Social History Alcohol Use: None Hx Substance Use: No Substance Use Type: Reports: None Hx Tobacco Use: No Smoking Status (MU): Never Smoked Tobacco Review of Systems Positive: Other - body temperature 99F. Negative: Chills Negative: Erythema Positive: Sore Throat, Other - hemoptysis Positive: Chest Pain, Other - "racing heart" Positive: Shortness Of Breath, Cough Positive: Diarrhea. Negative: Abdominal Pain, Vomiting, Nausea Negative: dysuria, hematuria Positive: Myalgia. Negative: Edema Negative: Rash Neurological: Other - Dizziness, light headedness All Other Systems Reviewed And Are Negative: Yes Physical Exam - Summary Physical Exam Summary: Constitutional: Well-developed, Well-nourished, Alert. (-) Distressed Skin: Warm, Dry HENT: Normocephalic; Atraumatic Eyes: Conjunctiva normal Neck: Musculoskeletal ROM normal neck. (-) JVD, (-) Stridor, (-) Tracheal deviation Cardio: Rhythm regular, rate normal, Heart sounds normal; Intact distal pulses; The pedal pulses are 2+ and symmetric. Radial pulses are 2+ and symmetric. (-) Murmur Pulmonary/Chest wall: Crackles in left lower lung base Abd: Soft, (-) tenderness, (-) Distension, (-) Guarding, (-) Rebound Musculoskeletal: (-) Edema Lymph: (-) Cervical adenopathy Neuro: Alert, Oriented x3 Psych: Mood and affect Normal Triage Information Reviewed: Yes Vital Signs On Initial Exam: Initial Vitals Temp Pulse Resp BP Pulse Ox 98.3 F 83 20 152/80 94 06/15/19 16:24 06/15/19 16:24 06/15/19 16:24 06/15/19 16:24 06/15/19 16:24 Vital Signs Reviewed: Yes Procedures - Sedation Patient Received Moderate/Deep Sedation with Procedure: No Diagnostics - Vital Signs Vital Signs Temp Pulse Resp BP Pulse Ox 06/15/19 18:00 97.2 F 104 20 116/74 06/15/19 16:24 98.3 F 83 20 152/80 94 - Laboratory Lab Results: Lab Results 06/15/19 06/15/19 06/15/19 Range/Units 16:30 19:52 19:52 WBC 5.4 (3.5-10.8) 10^3/uL RBC 4.39 (3.70-4.87) 10^6 /uL Hgb 13.3 (12.0-16.0) g/dL Hct 40 (35-47) % MCV 91 (80-97) fL MCH 30 (27-31) pg MCHC 33 (31-36) g/dL RDW 14 (10-15) % Plt Count 251 (150-450) 10^3/uL MPV 7.6 (7.4-10.4) fL Neut % (Auto) 60.6 % Lymph % (Auto) 23.1 % Hale % (Auto) 9.8 % Eos % (Auto) 5.1 % Baso % (Auto) 1.4 % Absolute Neuts (auto) 3.3 (1.5-7.7) 10^3/ul Absolute Lymphs (auto) 1.3 (1.0-4.8) 10^3/ul Absolute Monos (auto) 0.5 (0-0.8) 10^3/ul Absolute Eos (auto) 0.3 (0-0.6) 10^3/ul Absolute Basos (auto) 0.1 (0-0.2) 10^3/ul Absolute Nucleated RBC 0.0 10^3/ul Nucleated RBC % 0.1 INR (Anticoag Therapy) 1.12 H (0.82-1.09) Group A Strep Rapid Negative (Negative) Result Diagrams: 06/15/19 19:52 06/15/19 19:52 Lab Statement: Any lab studies that have been ordered have been reviewed, and results considered in the medical decision making process. - Radiology CXR Radiology Interpretation Completed By: ED Physician Summary of Radiographic Findings: obscured left heart border, unchanged. pending official report - EKG 1639 Cardiac Rate: NL - 81 BPM EKG Rhythm: Sinus Rhythm Complex Multi-Symp Course/Dx Course Of Treatment: 73 year old F complains of worsening cough since 6 days ago. Patient states that Tuesday 06/12, she woke up in the morning with a sore throat. States she saw nurse practitioner at primary care provider's office on Tuesday 06/12 and was prescribed azithromycin which she has finished. Today 06/15 , she developed hemoptysis. Saw another nurse practitioner today 06/15 in primary care provider's office and was referred to ED. Reports intermittent body temperature 99F, diffuse chest pain, shortness of breath, dizziness, light headedness, diarrhea, myalgia, and "racing heart.". Upon exam, the patient has crackles in left lower lung base. Bloodwork results with no significant abnormalities except for INR 1.12, creatinine 1.09, BUN/creatinine 20.2, BNP 130. Rapid strep test negative for strep. An EKG shows NSR 81 BPM. CXR shows obscured left heart border, unchanged. The patient will be signed out to Dr. Moreland upon shift change 06/15/19 22:00 to f/u CTA Chest to r/o PE or mass, and pending disposition. If pneumonia, likely plan for d/c. - Diagnoses Provider Diagnoses: Hemoptysis Discharge ED - Sign-Out/Discharge Documenting (check all that apply): Sign-Out Patient Signing out patient TO: Farzaneh Moreland - awaiting CTA Chest and pending disposition - Discharge Plan Referrals: Wes Killian MD [Primary Care Provider] - - Attestation Statements Document Initiated by Scribe: Yes Documenting Scribe: Jennifer Bolivar Provider For Whom Scribe is Documenting (Include Credential): Garry Sultana MD Scribe Attestation: I, Jennifer Bolivar, scribed for Garry Sultana MD on 06/15/19 at 2220. Status of Scribe Document: Ready
[2019-06-15] MEDS ORDERED: Iodixanol* (CONTRAST) 320 MG/ML 100 ML SDV IV ONE (21:17)
--- NOTE | 2019-06-15 22:34 | ED ---
Progress - Progress Note Progress Note: Patient was signed out from Dr. Sultana to Dr. Moreland at end of shift at 2200 on 06/15/19. Patient is awaiting Chest CTA. Chest CTA shows left upper lobe pneumonia. Patient is being prescribed Ceftin. - EKG/XRAY/CT CT: Chest CTA: Left upper lobe pneumonia. Dr. Moreland reviewed/interpreted CT. Course/Dx - Course Course Of Treatment: 73 year old F complains of worsening cough since 6 days ago. Patient states that Tuesday 06/12, she woke up in the morning with a sore throat. States she saw nurse practitioner at primary care provider's office on Tuesday 06/12 and was prescribed azithromycin which she has finished. Today 06/15 , she developed hemoptysis. Saw another nurse practitioner today 06/15 in primary care provider's office and was referred to ED. Reports intermittent body temperature 99F, diffuse chest pain, shortness of breath, dizziness, light headedness, diarrhea, myalgia, and "racing heart.". Upon exam, the patient has crackles in left lower lung base. Bloodwork results with no significant abnormalities except for INR 1.12, creatinine 1.09, BUN/creatinine 20.2, BNP 130. Rapid strep test negative for strep. An EKG shows NSR 81 BPM. CXR shows obscured left heart border, unchanged. The patient will be signed out to Dr. Moreland upon shift change 06/15/19 22:00 to f/u CTA Chest to r/o PE or mass, and pending disposition. If pneumonia, likely plan for d/c. - Diagnoses Provider Diagnoses: Hemoptysis Discharge ED - Sign-Out/Discharge Documenting (check all that apply): Patient Departure - Home, Receiving Sign-Out Receiving patient FROM: Garry Sultana - Patient was signed out from Dr. Sultana to Dr. Moreland at change of shift at 2200 on 06/15/19, pending chest CTA. - Discharge Plan Condition: Stable Disposition: HOME Prescriptions: ceFUROXime 250 MG TAB [Ceftin TAB 250 MG(*)] 500 mg PO BID #20 tab Patient Education Materials: Hemoptysis (ED) Referrals: Wes Killian MD [Primary Care Provider] - Additional Instructions: Follow up with your primary care provider in 2-3 days. Return to the Emergency Department if you experience new or worsened symptoms. - Billing Disposition and Condition Condition: STABLE Disposition: Home - Attestation Statements Document Initiated by Pierceibbrett: Yes Documenting Scribe: Hiren Crawford Provider For Whom Emilio is Documenting (Include Credential): Farzaneh Moreland MD Scribe Attestation: Hiren Medina, scribed for Farzaneh Moreland MD on 06/16/19 at 0208. Scribe Documentation Reviewed: Yes Provider Attestation: The documentation as recorded by the scribHiren west accurately reflects the service I personally performed and the decisions made by me, Farzaneh Moreland MD Status of Scribe Document: Viewed
[2019-06-15 23:38] VITALS: BP 178/78
== END 2019-06-15 23:37 | disposition home or self-care (01) ==
LOC: ED 16:21
DX: R04.2 Hemoptysis (principal); I48.91 Unspecified atrial fibrillation; I10 Essential (primary) hypertension; Z86.711 Personal history of pulmonary embolism; Z86.718 Personal history of other venous thrombosis and embolism; K21.9 Gastro-esophageal reflux disease without esophagitis; F41.9 Anxiety disorder, unspecified; F32.9 Major depressive disorder, single episode, unspecified; Z90.49 Acquired absence of other specified parts of digestive tract; Z79.01 Long term (current) use of anticoagulants; Z88.0 Allergy status to penicillin; Z88.8 Allergy status to other drugs, medicaments and biological substances; Z88.1 Allergy status to other antibiotic agents; Z91.041 Radiographic dye allergy status
CPT/HCPCS: 36415; 71045; 71275; 80053; 83605; 83880; 84484; 85025; 85610; 87040; 87651; 93005; 99284; Q9967

== ENCOUNTER 2019-06-16 07:09 | Emergency (ER) | payer MEDICARE, OTHER ==
--- NOTE | 2019-06-16 07:28 | ED ---
Allergic Reaction/Systemic - HPI Summary HPI Summary: This patient is a 73 year old F brought to [facility] by EMS with a chief complaint of allergic reaction on her back, butt, and upper leg area to abx since 0200 06/16/10. CC described as itchy, painful, inflamed feeling like she is getting bitten. Pt reports she was in [facility] last night for dx PNA and was given cefuroxime which she took upon getting home last night at midnight. Pt reports her reaction started 2 hours after she got home. Pt reports she got a Z-pack from her PCP and completed the majority of it before she came to ED yesterday. Denies fevers, worsening cough or shortness of breath. - History of Current Complaint Time Seen by Provider: 06/16/19 07:13 Hx Obtained From: Patient Onset/Duration: Sudden Onset, Still Present Timing: Lasting Hours Aggravating Factor(s): Nothing Alleviating Factor(s): Nothing - Allergies/Home Medications Allergies/Adverse Reactions: Allergies Allergy/AdvReac Type Severity Reaction Status Date / Time amoxicillin Allergy Severe Nausea Verified 09/29/18 10:21 clavulanic acid Allergy Severe Nausea Verified 09/29/18 10:21 [From Augmentin] pepper (genus Capsicum) Allergy Swelling Verified 09/29/18 10:36 environmental Allergy Mild Sneezing Uncoded 09/29/18 10:21 oral contrast Allergy See Comment Uncoded 09/29/18 11:04 tony rigoberto AdvReac Mild nausea/vomi Uncoded 09/29/18 10:21 ting PMH/Surg Hx/FS Hx/Imm Hx Endocrine/Hematology History: Reports: Hx Anticoagulant Therapy - Xarelto for afib DC'd 5 days ago for planned surgery today Cardiovascular History: Reports: Hx Atrial Fibrillation, Hx Deep Vein Thrombosis , Hx Hypertension, Other Cardiovascular Problems/Disorders - a-fib Denies: Hx Congestive Heart Failure, Hx Myocardial Infarction Respiratory History: Reports: Hx Pneumonia, Hx Pulmonary Embolism - 02/2014, Hx Seasonal Allergies - unsure; chronically stuffy head, Hx Sleep Apnea - uses CPAP , Other Respiratory Problems/Disorders - PNX3 LAST 5YRS.AGO GI History: Reports: Hx Gastroesophageal Reflux Disease, Hx Hiatal Hernia, Other GI Disorders - Vargas's esophagus History: Reports: Other Problems/Disorders - frequent UTIs Musculoskeletal History: Reports: Hx Arthritis - knees, Other Musculoskeletal History - Vargas's esophagus Sensory History: Reports: Hx Cataracts - cataracts removed 2011, Hx Contacts or Glasses Denies: Hx Hearing Aid Opthamlomology History: Reports: Hx Cataracts - cataracts removed 2011, Hx Contacts or Glasses Psychiatric History: Reports: Hx Anxiety, Hx Depression - hx of therapy, Other Psychiatric Issues/Disorders - claustrophobia Denies: Hx Eating Disorder, Hx of Violent Episodes Against Others - Cancer History Hx Chemotherapy: No Hx Radiation Therapy: No - Surgical History Surgery Procedure, Year, and Place: cholecystectomy 2011 [facility]. tonsillectomy 1961. D+C 1966 Hx Anesthesia Reactions: No - Family History Known Family History: Positive: Diabetes, Renal Disease - mother, Other Family History: Breast CA - Social History Alcohol Use: None Hx Substance Use: No Substance Use Type: Reports: None Hx Tobacco Use: No Smoking Status (MU): Never Smoked Tobacco Review of Systems Negative: Fever Positive: Rash All Other Systems Reviewed And Are Negative: Yes Physical Exam - Summary Physical Exam Summary: Constitutional: obese, Alert. (-) Distressed Skin: erythema to the posterior back extending to the lower buttocks, Fleas on legs HENT: Normocephalic; Atraumatic Eyes: Conjunctiva normal Neck: Musculoskeletal ROM normal neck. (-) JVD, (-) Stridor, (-) Nuchal rigidity Cardio: Rhythm regular, rate normal, Heart sounds normal; Intact distal pulses; Radial pulses are 2+ and symmetric. (-) Murmur Pulmonary/Chest wall: Mild rhonchi of the left lung, (-) Wheezes, (-) Rales Abd: Soft, (-) tenderness, (-) Distension, (-) Guarding, (-) Rebound Musculoskeletal: (-) Edema Lymph: (-) Cervical adenopathy Neuro: Alert, Oriented x3 Psych: Mood and affect Normal Triage Information Reviewed: Yes Vital Signs Reviewed: Yes Procedures - Sedation Patient Received Moderate/Deep Sedation with Procedure: No Re-Evaluation - Re-Evaluation First Eval Re-Evaluation Time: 08:35 Comment: Pt is feeling better after benadryl and prednisone Allergic Reaction Course/Dx - Course Course Of Treatment: 73-year-old female recently seen for negative and presents allergic reaction. The patient has erythema of the skin of back/posterior thighs, no other systemic involvement. Patient recently put on cephalosporin, we'll switch to Levaquin given allergies and recent use of azithromycin. - Diagnoses Provider Diagnoses: Allergic reaction Discharge ED - Sign-Out/Discharge Documenting (check all that apply): Patient Departure - discharge - Discharge Plan Condition: Stable Disposition: HOME Prescriptions: Levofloxacin TAB* [Levaquin TAB*] 750 mg PO DAILY 4 Days #4 tab Patient Education Materials: Urticaria (ED) Referrals: Wes Killian MD [Primary Care Provider] - Additional Instructions: You were seen for an allergic reaction. Please stop your antibiotic and take levaquin. Take benadryl as needed. Return for worsening symptoms, trouble breathing, or if you are concerned. - Billing Disposition and Condition Condition: STABLE Disposition: Home - Attestation Statements Document Initiated by Emilio: Yes Documenting Scribe: Flores Tarango Provider For Whom Emilio is Documenting (Include Credential): Dr. Judson Henley MD Scribe Attestation: IFlores, scribed for Dr. Judson Henley MD on 06/16/19 at 0923. Scribe Documentation Reviewed: Yes Provider Attestation: The documentation as recorded by the Flores perdue accurately reflects the service I personally performed and the decisions made by me, Dr. Judson Henley MD Status of Scrbrie Document: Viewed
[2019-06-16] MEDS ORDERED: diPHENhydraMINE PO* 50 MG PO ONE (07:31)
[2019-06-16] MEDS ORDERED: predniSONE TAB* 50 MG PO ONE (07:31)
--- OUTSIDE RECORDS SUMMARY | 2019-06-16 08:05 | XMS REPORT | Continuity of Care Document ---
:1945 External Reference #:[id number] Author Name TERESA Rodriguez Address [address] [place] [address] Care Team Providers Name Role Phone Wes Killian MD - Family Medicine Care Team Information Principal Android Developer [phone] [facility] Living - Care Team Information Principal Android Developer [phone] [facility] Physical Care Team Information Principal Android Developer Therapy - Physical Therapy Ronen Blancas MD - Sleep Disorder Care Team Information Principal Android Developer Diagnostic Mary Weiner MD - Care Team Information Principal Android Developer [phone] [facility] - Physical Care Team Information Principal Android Developer Therapist [facility] - Clinic/Center Care Team Information Principal Android Developer [phone] [facility] - [facility] Equipment [facility] Supplies Care Team Information Principal Android Developer [phone] [facility] - Care Team Information Principal Android Developer [phone] [facility] Care Team Information Principal Android Developer [phone] Problems Active Problems Provider Date Degenerative joint [...] David barajas as directed, 6tabs J20.9 Bridgette Susy 06/12/2019 250mg 2 tabs day one, one Lees, GIVER Tablets tab day 2-5 Armodafinil take 1 tablet by 30tabs Wes [...] Killian 0.1% Cream Nystatin use as directed gm Wes F. 03/01/2017 twice a day as Frederick Killian [id number]/GM Cream needed Xarelto take 1 tablet by 90tabs Wes FHarshal 12/01/2016 20mg Tablets mouth daily with Frederick Killian food Metoprolol Succinate take one tablet by 90tabs Wes FHarshal 12/09/2015 ER mouth every day ShallFrederick cabral 25mg Tablets ER 24HR Furosemide 1 by mouth every 90tabs R60.0 Wes F. 01/24/2014 40mg day Shallish M.D. Tablets Fenofibrate take one tablet by 90tabs E78.4 Wes F. 12/26/2012 145mg mouth every day Shallish, M.D. Tablets Omeprazole take one capsule by 90caps K21.9 Wes F. 01/01/2012 40mg mouth every day Shallish, M.D. Capsules DR Ar Hernandez take 1 pill 1tabs R39.198 Wes FHarshal Constantin, 04/21/2019 - 150mg Tablets M.D. 06/15/2019 Azithromycin 2 by mouth 6tabs Wes BoyHarshal Constantin, 04/17/2019 - 250mg every day for M.D. 04/24/2019 Tablets 1 days, then 1 by mouth every day for 4 days Modafinil take one pill 20tabs Wes BoyHarshal Constantin, 03/13/2019 - 100mg Tablets on days you M.D. 03/16/[address] Immunizations CPT Code Status Date Vaccine Lot # [id number] Given 05/29/2018 High-Dose, Influenza Virus Vacccine-fluzone 65 and older 14166 Given 04/18/2017 High-Dose, Influenza Virus Vacccine-fluzone 65 and [id number] older 83188 Given 04/08/2016 High-Dose, Influenza Virus Vacccine-fluzone 65 and [id number] older 74998 Given 05/22/2015 Influenza Vac, Quadrivalent, Slit Virus, Im [id number] 18664 Given 05/22/2015 Pneumococcal Conjugate Vacc-13 [id number] 26119 Given 05/02/2014 High-Dose, Influenza Virus Vacccine-fluzone 65 and [id number] older Given 06/05/2013 High-Dose, Influenza Virus Vacccine-fluzone 65 and [id number] older 73213 Given 04/13/2012 High-Dose, Influenza Virus Vacccine-fluzone 65 and [id number] older 43969 Given 06/13/2010 Pneumococcal Immunization 73949 Given 06/13/2010 Tdap Tetanus, W Pertussis 71649 Given 06/13/2010 DO Not Use Split Influenza Virus Vaccine 87155 Given 06/08/2008 DO Not Use Split Influenza Virus Vaccine [id number] Vital Signs Date Vital Result Comment 06/15/2019 3:03pm BP Systolic 118 mmHg BP Diastolic 58 mmHg Heart Rate 92 /min Body Temperature 98.1 F Respiratory Rate 17 /min O2 % BldC Oximetry 91 % Ra 06/12/2019 3:32pm BP Systolic 118 mmHg BP Diastolic 60 mmHg Heart Rate 106 /min Body Temperature 98.6 F Respiratory Rate 20 /min O2 % BldC Oximetry 89 % Results Test Date Facility Test Result H/L Range Note Nuswab VG+ With 04/21/2019 [facility] Low - 0 Score 1 Jessi ([phone] [facility] vaginae Species) [place] [address] (607)- - Bvab 2 Low - 0 [...] Leukocytes (Fma/[facility]) NEG Comprehensive Metabolic 04/17/2019 [facility]) Sodium 144 mEq/L 134-149 Prof Potassium 4.4 [...] >60 ml/min/1.73m^ >=60 Laboratory test 04/17/2019 [facility](a) Free T4 1.28 ng/dL 0.75- 1.54 finding [...] Detected None Detect 5 Laboratory test 12/21/2018 [facility] C Reactive 17.25 mg/L High <8.01 6, 7 finding Protein Ua - Non Micro 12/21/2018 [facility] Appearance clear ([facility]) (607)- - Color yellow Glucose, Urine (a/CMC/CTX) neg Bilirubin neg Ketones trace SP Grav >1.030 Blood neg PH 5.0 Protein neg Urobil 0.2 Nitrite neg Leukocytes (a/[facility]) neg CBC Electronic (a New) 12/21/2018 [facility] WBC 5.22 4.0-10.0 (607)- - RBC [...] be used for medical purposes only. 6 [id number] 1 sst 7 [id number] 1 sst Procedures Date Code Description Status 06/12/2019 91633 Pulse Oximetry Completed 04/21/2019 69251 Pulse Oximetry Completed 04/21/2019 69525 Electrocardiogram Complete Completed 10/06/2018 [id number] Mammogram Completed 08/04/2017 [id number] Mammogram Completed 03/15/2016 [id number] Bone Mineral Density Test Completed 07/09/2015 [id number] Mammogram Completed 10/23/2013 [id number] Colonoscopy Completed 07/06/2013 [id number] Mammogram Completed 06/12/2012 [id number] Mammogram Completed 05/13/2011 [id number] Mammogram Completed 09/08/2007 [id number] Mammogram Completed 10/06/2006 [id number] Colonoscopy Completed 06/09/2006 [id number] Mammogram Completed Medical Devices Description No Information Available Encounters Type Date Location Provider Dx Diagnosis Office Visit 06/12/2019 3:30p Main Office Bridgette Lees, R60.0 Localized edema GIVER E66.9 Obesity, unspecified R00.2 Palpitations R09.02 Hypoxemia J20.9 Acute bronchitis, unspecified Office Visit 05/03/2019 6:00p Main Office Genesis Mathews, M79.10 Myalgia, PA unspecified site N77.1 Vaginitis, vulvitis and vulvovaginitis in dis classd elswhr E66.3 Overweight Office Visit 04/21/2019 11:00a [facility] Genesis Mathews, R07.89 Other chest PA [...] Office Visit 12/21/2018 4:00p Main Office Weseduard Ritter Shallish, I48.0 Paroxysmal atrial M.D. fibrillation R19.7 Diarrhea, unspecified N39.46 Mixed incontinence Assessments Date Code Description Provider 06/15/2019 J20.9 Acute bronchitis, unspecified Tessa Dominic, [facility] 06/15/2019 R05 Cough Tessa Dominic, [facility] 06/15/2019 R04.2 Hemoptysis Tessa Dominic, [facility] 06/15/2019 R09.02 Hypoxemia Tessa Dominic, [facility] 06/15/2019 R00.2 Palpitations Tessa Dominic, [facility] 06/15/2019 R60.0 Localized edema Tessa Dominic, [facility] 06/15/2019 I48.0 Paroxysmal atrial fibrillation Tessa Dominic, [facility] 06/12/2019 R60.0 Localized edema Bridgette Lees, GIVER 06/12/2019 E66.9 Obesity, unspecified Bridgette Lees, GIVER 06/12/2019 R00.2 Palpitations Bridgette Lees, GIVER 06/12/2019 R09.02 Hypoxemia Bridgette Lees, GIVER 06/12/2019 J20.9 Acute bronchitis, unspecified Bridgette Lees, GIVER 05/03/2019 M79.10 Myalgia, unspecified site RILEY [place] [...] am - Wes Killian M.D. at Main Bfkhfc9706/15/2019 - Tessa Alfaro, FNPJ20.9 Acute bronchitis, jrlxydbdaeiM17 GgveiD03.2 BmnwpdfwtqF57.02 ObjsverrjN85.2 AfapndwwodrkN54.0 Localized rljbaX46.0 Paroxysmal atrial fibrillationAllComments:Medication Management Patient Understands medications he 's taking? Yes No Are there Barriers to Adherence? Yes No Has the patient been asked about herbal supplements and therapies, andOTC meds? Yes No As always, we strongly encourage a healthy diet and making physical activity a part of your every day life. If you have questions about how or where to start, please contact the office. Functional Status Description No Information Available Mental Status Description No Information Available Referrals Description No Information Available
[2019-06-16] MEDS ORDERED: Levofloxacin TAB* 250 MG PO ONE (08:09)
[2019-06-16 09:21] VITALS: BP 125/71
== END 2019-06-16 10:06 | disposition home or self-care (01) ==
LOC: ED 07:09
DX: T78.40XA Allergy, unspecified, initial encounter (principal); X58.XXXA Exposure to other specified factors, initial encounter; Y92.9 Unspecified place or not applicable; I48.91 Unspecified atrial fibrillation; I10 Essential (primary) hypertension; K21.9 Gastro-esophageal reflux disease without esophagitis; F41.9 Anxiety disorder, unspecified; F32.9 Major depressive disorder, single episode, unspecified; Z86.718 Personal history of other venous thrombosis and embolism; Z90.49 Acquired absence of other specified parts of digestive tract; Z79.01 Long term (current) use of anticoagulants; Z88.0 Allergy status to penicillin; Z88.8 Allergy status to other drugs, medicaments and biological substances; Z88.1 Allergy status to other antibiotic agents; Z91.041 Radiographic dye allergy status
CPT/HCPCS: 99282; A9270-GY; J7512

== ENCOUNTER 2023-08-26 17:52 | Inpatient (IN) ==
[2023-08-26 19:01] LABS: ABS Basophils 0.1 10^3/uL (0.0-0.1); ABS Eosinophils 0.1 10^3/uL (0.0-0.5); ABS Lymphocytes 0.5 10^3/uL (1.0-4.8); ABS Monocytes 0.4 10^3/uL (0.0-0.9); ABS Neutrophils 3.6 10^3/uL (1.5-7.6); Eosinophil % 1.3 %; Hematocrit 34.6 % (35-45); Hemoglobin 11.7 g/dL (11.5-14.3); Mean Corpuscular Hemoglobin 30.9 pg (27-33); Mean Corpuscular Hgb Conc 33.8 g/dL (31-36); Mean Corpuscular Volume 91.5 fL (80-97); Mean Platelet Volume 7.3 fL (7.5-11.2); Nucleated Red Blood Cells % 0.1 %/100WBC (0.0-0.8); Platelet Count 304 10^3/uL (150-450); Red Blood Count 3.78 10^6/uL (3.63-4.92); Red Cell Distribution Width 13.5 % (12-17); White Blood Count 4.7 10^3/uL (3.8-11.8)
[2023-08-26 19:18] LABS: INR 1.38 (0.83-1.13)
[2023-08-26 19:21] LABS: Albumin/Globulin Ratio 1.1 (1-3); Calcium 9.5 mg/dL (8.6-10.3); Creatinine, Serum 1.76 mg/dL (0.51-0.95); Globulin 3.6 g/dL (2-4); Potassium 4.2 mmol/L (3.5-5.0); Total Bilirubin 0.3 mg/dL (0.2-1.0); Total Protein 7.6 g/dL (6.4-8.9); eGFR CKD-EPI 29.4 (>60)
[2023-08-26 19:54] LABS: Rapid COVID-19 Molecular Undetected (Undetected)
[2023-08-26 19:58] LABS: Influenza A Molecular Negative (Negative); Influenza B Molecular Negative (Negative)
[2023-08-26 20:31] LABS: Magnesium 1.6 mg/dL (1.9-2.7)
[2023-08-26] MEDS ORDERED: Magnesium Sulf 4 GM/100 ML IV 4,000 MG/100 ML BAG IVPB ONE (20:36)
[2023-08-26 20:53] LABS: High Sensitivity Troponin 1 Hr 7 pg/mL (<15)
[2023-08-26] MEDS ORDERED: Furosemide 40 mg/4 ml IV VIAL IV SLOW PU ONE (21:03)
[2023-08-27] MEDS ORDERED: Fluticasone NASAL SPRAY 50MCG 16 gm SPRAY BTL BOTH NARES PRN (00:20)
[2023-08-27 00:34] LABS: C Reactive Protein 14.94 mg/L (<8.01)
[2023-08-27] MEDS ORDERED: Triamcinolone 0.025% OINT 15 GM TUBE TOPICAL PRN (00:39)
[2023-08-27] MEDS ORDERED: Furosemide 40 mg/4 ml IV VIAL IV SLOW PU ONE (02:30)
[2023-08-27] MEDS: Carboxymethylcellulos 1% OPTH 1 AMP BOTH EYES SCH ×3 (03:39→21:39)
[2023-08-27 07:02] LABS: ABS Basophils 0.1 10^3/uL (0.0-0.1); ABS Eosinophils 0.1 10^3/uL (0.0-0.5); ABS Lymphocytes 0.6 10^3/uL (1.0-4.8); ABS Monocytes 0.6 10^3/uL (0.0-0.9); ABS Neutrophils 4.9 10^3/uL (1.5-7.6); Eosinophil % 2.1 %; Hematocrit 35.2 % (35-45); Hemoglobin 11.9 g/dL (11.5-14.3); Lymphocyte % 9.7 %; Mean Corpuscular Hemoglobin 30.9 pg (27-33); Mean Corpuscular Hgb Conc 33.9 g/dL (31-36); Mean Corpuscular Volume 91.3 fL (80-97); Mean Platelet Volume 7.5 fL (7.5-11.2); Platelet Count 297 10^3/uL (150-450); Red Blood Count 3.86 10^6/uL (3.63-4.92); Red Cell Distribution Width 13.4 % (12-17); White Blood Count 6.3 10^3/uL (3.8-11.8)
[2023-08-27 07:16] LABS: Calcium 9.2 mg/dL (8.6-10.3); Creatinine, Serum 1.79 mg/dL (0.51-0.95); Magnesium 2.3 mg/dL (1.9-2.7); eGFR CKD-EPI 28.9 (>60)
[2023-08-27] MEDS ORDERED: Furosemide 40 mg/4 ml IV VIAL IV SLOW PU SCH (08:00)
[2023-08-27] MEDS: CMCS: Fenofibrate 145 mg TAB (NF) PO SCH (08:40)
[2023-08-27] MEDS: Mupirocin 2% OINT TUBE TOPICAL SCH (08:41)
[2023-08-27] MEDS ORDERED: Ondansetron 4 mg VIAL 2 MG/ML 2 ml VIAL IV PRN (08:58)
[2023-08-27] MEDS ORDERED: Senna TAB 8.6 mg TAB PO PRN (21:52)
[2023-08-27] MEDS ORDERED: Polyethylene Glycol 3350 17 GM PACKET PO PRN (21:52)
[2023-08-28 07:36] LABS: Hematocrit 34.3 % (35-45); Hemoglobin 11.7 g/dL (11.5-14.3); Mean Corpuscular Hgb Conc 34.1 g/dL (31-36); Mean Platelet Volume 7.3 fL (7.5-11.2); Platelet Count 285 10^3/uL (150-450); Red Blood Count 3.77 10^6/uL (3.63-4.92); Red Cell Distribution Width 13.5 % (12-17); White Blood Count 4.9 10^3/uL (3.8-11.8)
[2023-08-28 07:52] LABS: Calcium 9.4 mg/dL (8.6-10.3); Creatinine, Serum 1.68 mg/dL (0.51-0.95); Magnesium 2.2 mg/dL (1.9-2.7); Potassium 4.7 mmol/L (3.5-5.0); eGFR CKD-EPI 31.1 (>60)
[2023-08-28] MEDS: Magnesium Hydroxide LIQ 30 ML UDC PO SCH ×2 (08:35→21:09)
[2023-08-28] MEDS: CMCS: Fenofibrate 145 mg TAB (NF) PO SCH (08:37)
[2023-08-28] MEDS: Mupirocin 2% OINT TUBE TOPICAL SCH (08:38)
[2023-08-28] MEDS: Carboxymethylcellulos 1% OPTH 1 AMP BOTH EYES SCH ×2 (08:38→21:10)
[2023-08-29 05:59] LABS: Hematocrit 35.3 % (35-45); Hemoglobin 12.1 g/dL (11.5-14.3); Mean Corpuscular Hemoglobin 31.4 pg (27-33); Mean Corpuscular Hgb Conc 34.4 g/dL (31-36); Mean Corpuscular Volume 91.3 fL (80-97); Mean Platelet Volume 7.5 fL (7.5-11.2); Platelet Count 332 10^3/uL (150-450); Red Blood Count 3.86 10^6/uL (3.63-4.92); Red Cell Distribution Width 13.2 % (12-17); White Blood Count 2.9 10^3/uL (3.8-11.8)
[2023-08-29 06:21] LABS: Calcium 10.1 mg/dL (8.6-10.3); Creatinine, Serum 1.41 mg/dL (0.51-0.95); Magnesium 2.6 mg/dL (1.9-2.7); Potassium 4.9 mmol/L (3.5-5.0); eGFR CKD-EPI 38.4 (>60)
[2023-08-29] MEDS: Magnesium Hydroxide LIQ 30 ML UDC PO SCH ×2 (08:45→20:53)
[2023-08-29] MEDS: CMCS: Fenofibrate 145 mg TAB (NF) PO SCH (08:47)
[2023-08-29] MEDS: Mupirocin 2% OINT TUBE TOPICAL SCH (08:53)
[2023-08-29] MEDS: Carboxymethylcellulos 1% OPTH 1 AMP BOTH EYES SCH ×2 (08:53→20:53)
[2023-08-30 06:32] LABS: ABS Lymphocytes 0.8 10^3/uL (1.0-4.8); ABS Monocytes 0.3 10^3/uL (0.0-0.9); ABS Neutrophils 5.5 10^3/uL (1.5-7.6); Hemoglobin 11.2 g/dL (11.5-14.3); Lymphocyte % 11.9 %; Mean Corpuscular Hemoglobin 30.8 pg (27-33); Mean Corpuscular Hgb Conc 33.9 g/dL (31-36); Mean Corpuscular Volume 90.8 fL (80-97); Mean Platelet Volume 7.3 fL (7.5-11.2); Platelet Count 307 10^3/uL (150-450); Red Blood Count 3.64 10^6/uL (3.63-4.92); White Blood Count 6.5 10^3/uL (3.8-11.8)
[2023-08-30 06:45] LABS: Calcium 9.6 mg/dL (8.6-10.3); Creatinine, Serum 1.46 mg/dL (0.51-0.95); Magnesium 2.6 mg/dL (1.9-2.7); Potassium 4.5 mmol/L (3.5-5.0); eGFR CKD-EPI 36.8 (>60)
[2023-08-30] MEDS: Carboxymethylcellulos 1% OPTH 1 AMP BOTH EYES SCH (08:17)
[2023-08-30] MEDS: CMCS: Fenofibrate 145 mg TAB (NF) PO SCH (08:19)
[2023-08-30 09:55] VITALS: BP 99/55
[2023-08-30] MEDS: Mupirocin 2% OINT TUBE TOPICAL SCH (11:31)
== END 2023-08-30 13:48 | disposition home or self-care (01) | DRG 292 ==
LOC: ED 17:52 → EDHOLD 17:52 → SUATTDRO 23:52 → EDHOLD 08-27 01:36 → MEDTELE 08-27 01:46 → SUATTDRO 08-27 16:00
PROVIDERS: ADMIT Internal Medicine; ATTEND Hospitalist

== ENCOUNTER 2023-09-16 13:45 | Inpatient (IN) ==
[2023-09-16 14:28] LABS: ABS Lymphocytes 0.4 10^3/uL (1.0-4.8); ABS Monocytes 0.2 10^3/uL (0.0-0.9); ABS Neutrophils 4.7 10^3/uL (1.5-7.6); Eosinophil % 0.2 %; Hemoglobin 11.8 g/dL (11.5-14.3); Lymphocyte % 7.3 %; Mean Corpuscular Hemoglobin 31.2 pg (27-33); Mean Corpuscular Hgb Conc 33.8 g/dL (31-36); Mean Corpuscular Volume 92.2 fL (80-97); Mean Platelet Volume 8.1 fL (7.5-11.2); Platelet Count 186 10^3/uL (150-450); Red Cell Distribution Width 13.5 % (12-17); White Blood Count 5.3 10^3/uL (3.8-11.8)
[2023-09-16 14:35] LABS: INR 1.72 (0.83-1.13)
[2023-09-16 14:53] LABS: Albumin 3.5 g/dL (3.2-5.2); Albumin/Globulin Ratio 1.1 (1-3); C Reactive Protein 78.89 mg/L (<8.01); Calcium 8.8 mg/dL (8.6-10.3); Creatinine, Serum 1.5 mg/dL (0.51-0.95); Globulin 3.1 g/dL (2-4); Magnesium 1.3 mg/dL (1.9-2.7); Potassium 3.4 mmol/L (3.5-5.0); Total Bilirubin 0.7 mg/dL (0.2-1.0); Total Protein 6.6 g/dL (6.4-8.9); eGFR CKD-EPI 35.7 (>60)
[2023-09-16 15:35] LABS: PCO2 Arterial 41 mmHg (35-45); PO2 Arterial 90 mmHg (80-100)
[2023-09-16] MEDS: NS 0.9% 250 ml 250 ML IV ONE (15:39)
[2023-09-16] MEDS: Magnesium Sulf 4 GM/100 ML IV 4,000 MG/100 ML BAG IVPB ONE (15:43)
[2023-09-16 16:02] LABS: High Sensitivity Troponin 1 Hr 15 pg/mL (<15)
[2023-09-16] MEDS: Iodixanol (CONTRAST) 320 MG/ML 100 ML SDV IV ONE (16:05)
[2023-09-16] MEDS: Metoprolol Tartrate 5 mg VIAL 5 ml VIAL (1 mg/ml) IV ONE (16:45)
[2023-09-16 17:02] LABS: Urine Appearance Turbid; Urine Bilirubin Negative (Negative); Urine Blood Negative (Negative); Urine Color Light-Yellow; Urine Glucose Negative (Negative); Urine Ketones Negative (Negative); Urine Nitrite Negative (Negative); Urine Protein Negative (Negative); Urine Specific Gravity 1.012 (1.002-1.030); Urine Urobilinogen Negative (Negative)
[2023-09-16 17:10] LABS: Urine Bacteria 1+ /HPF (Absent); Urine Red Blood Cell 1+(3-5/hpf) /HPF (0-Trace); Urine Squamous Epithelial Cell Present /HPF (Absent); Urine White Blood Cell 3+(>20/hpf) /HPF (0-Trace)
[2023-09-16] MEDS ORDERED: Fluticasone NASAL SPRAY 50MCG 16 gm SPRAY BTL BOTH NARES PRN (17:59)
[2023-09-16] MEDS ORDERED: ARMODAFINIL 150 MG PO PRN (17:59)
[2023-09-16] MEDS: NS 0.9% 1000 ml BAG 1,000 ML IV SCH (20:34)
[2023-09-16] MEDS: cefTRIAXone 1 gm/50 mL D5W 1 GM/50 ML BAG IV SCH (20:45)
[2023-09-16] MEDS: Nitrofurantoin (monohydrate/macrocrystals) 100 mg CAP PO SCH (21:47)
[2023-09-17] MEDS: NS 0.9% 250 ml 250 ML IV ONE (00:20)
[2023-09-17 07:46] LABS: ABS Eosinophils 0.3 10^3/uL (0.0-0.5); ABS Lymphocytes 0.6 10^3/uL (1.0-4.8); ABS Monocytes 0.3 10^3/uL (0.0-0.9); ABS Neutrophils 3.7 10^3/uL (1.5-7.6); Hematocrit 32.8 % (35-45); Hemoglobin 11.1 g/dL (11.5-14.3); Lymphocyte % 11.6 %; Mean Corpuscular Hemoglobin 31.2 pg (27-33); Mean Corpuscular Hgb Conc 33.8 g/dL (31-36); Mean Corpuscular Volume 92.3 fL (80-97); Mean Platelet Volume 8.5 fL (7.5-11.2); Platelet Count 156 10^3/uL (150-450); Red Blood Count 3.56 10^6/uL (3.63-4.92); Red Cell Distribution Width 13.8 % (12-17); White Blood Count 4.8 10^3/uL (3.8-11.8)
[2023-09-17 08:04] LABS: Calcium 8.5 mg/dL (8.6-10.3); Creatinine, Serum 1.15 mg/dL (0.51-0.95); Magnesium 2.2 mg/dL (1.9-2.7); Potassium 3.9 mmol/L (3.5-5.0); eGFR CKD-EPI 49.1 (>60)
[2023-09-17 08:14] LABS: TSH Ultra Thyroid Stim Horm 0.78 mcIU/mL (0.34-5.60)
[2023-09-17 10:05] LABS: C Reactive Protein 58.93 mg/L (<8.01)
[2023-09-17] MEDS ORDERED: Zosyn per Pharmacy NOTE FOLLOW UP SCH (13:00)
[2023-09-17] MEDS: Piperacillin/Tazobac 3.375 BAG 3.375 GM/100 ML BAG IV ONE (14:13)
[2023-09-17] MEDS: ZOSYN 3.375 GM Q8H per EXTENDED INFUSION IV SCH (18:11)
[2023-09-18 05:57] LABS: ABS Eosinophils 0.4 10^3/uL (0.0-0.5); ABS Lymphocytes 0.9 10^3/uL (1.0-4.8); ABS Monocytes 0.3 10^3/uL (0.0-0.9); ABS Neutrophils 2.3 10^3/uL (1.5-7.6); ABS Nucleated RBC 0.01 10^3/ul; Eosinophil % 9.6 %; Hematocrit 31.4 % (35-45); Hemoglobin 10.7 g/dL (11.5-14.3); Lymphocyte % 22.3 %; Mean Corpuscular Hemoglobin 31.5 pg (27-33); Mean Corpuscular Hgb Conc 34.1 g/dL (31-36); Mean Corpuscular Volume 92.5 fL (80-97); Mean Platelet Volume 8.3 fL (7.5-11.2); Nucleated Red Blood Cells % 0.2 %/100WBC (0.0-0.8); Platelet Count 154 10^3/uL (150-450); Red Blood Count 3.39 10^6/uL (3.63-4.92); Red Cell Distribution Width 13.8 % (12-17); White Blood Count 3.9 10^3/uL (3.8-11.8)
[2023-09-18 06:17] LABS: Albumin 3.2 g/dL (3.2-5.2); Albumin/Globulin Ratio 1.1 (1-3); Calcium 8.8 mg/dL (8.6-10.3); Creatinine, Serum 0.98 mg/dL (0.51-0.95); Globulin 2.8 g/dL (2-4); Potassium 4.6 mmol/L (3.5-5.0); Total Bilirubin 0.5 mg/dL (0.2-1.0); eGFR CKD-EPI 59.4 (>60)
[2023-09-18] MEDS ORDERED: Magnesium Hydroxide LIQ 30 ML UDC PO PRN (13:46)
[2023-09-18] MEDS ORDERED: Senna TAB 8.6 mg TAB PO PRN (13:46)
[2023-09-18] MEDS: Magnesium Hydroxide LIQ 30 ML UDC PO SCH (19:55)
[2023-09-18] MEDS: Polyethylene Glycol 3350 17 GM PACKET PO PRN (23:13)
[2023-09-19] MEDS: Sodium Phosphate ADULT ENEMA 133 ML BTL PR ONE (00:07)
[2023-09-19 05:47] LABS: ABS Eosinophils 0.3 10^3/uL (0.0-0.5); ABS Lymphocytes 0.8 10^3/uL (1.0-4.8); ABS Monocytes 0.4 10^3/uL (0.0-0.9); ABS Neutrophils 2.8 10^3/uL (1.5-7.6); ABS Nucleated RBC 0.01 10^3/ul; Eosinophil % 6.1 %; Hematocrit 33.5 % (35-45); Hemoglobin 11.4 g/dL (11.5-14.3); Lymphocyte % 18.3 %; Mean Corpuscular Hemoglobin 31.1 pg (27-33); Mean Corpuscular Hgb Conc 33.9 g/dL (31-36); Mean Corpuscular Volume 91.9 fL (80-97); Mean Platelet Volume 8.7 fL (7.5-11.2); Nucleated Red Blood Cells % 0.1 %/100WBC (0.0-0.8); Platelet Count 180 10^3/uL (150-450); Red Blood Count 3.65 10^6/uL (3.63-4.92); Red Cell Distribution Width 13.8 % (12-17); White Blood Count 4.2 10^3/uL (3.8-11.8)
[2023-09-19 06:04] LABS: Calcium 9.4 mg/dL (8.6-10.3); Creatinine, Serum 1.01 mg/dL (0.51-0.95); Magnesium 1.9 mg/dL (1.9-2.7); Potassium 4.7 mmol/L (3.5-5.0); eGFR CKD-EPI 57.3 (>60)
[2023-09-19 14:18] VITALS: BP 92/55
== END 2023-09-19 16:53 | disposition home or self-care (01) | DRG 603 ==
LOC: ED 13:45 → EDHOLD 17:54 → MEDTELE 09-17 01:53
PROVIDERS: ADMIT Hospitalist; ATTEND Hospitalist